=== PATIENT | male | born 1930 ===

== ENCOUNTER 2018-06-24 13:49 | Inpatient (IN) | payer MEDICARE ==
[2018-06-24] MEDS ORDERED: Labetalol 5mg/ml (4ml) ONE (14:03)
[2018-06-24 14:04] VITALS: BMI 27.8
[2018-06-24 14:34] LABS: EOS # 0.1 K/uL (0.0-0.7); LYMPH # 0.9 K/uL (1.0-4.3); MEAN PLATELET VOLUME 9.5 fL (7.2-11.7); NRBC % 0.1 % (0.0-2.0)
[2018-06-24 14:42] LABS: INR 1.1; PROTHROMBIN TIME 11.5 SECONDS (9.7-12.2)
[2018-06-24 14:43] LABS: BASO % 0.3 % (0.0-2.0); HEMOGLOBIN 12.5 g/dL (12.0-18.0); LYMPH % 17.7 % (20.0-40.0); MEAN CELL VOLUME 104.9 fL (80.0-94.0); MEAN CORPUSCULAR HEMOGLOBIN 34.2 pg (27.0-31.0); MEAN CORPUSCULAR HGB CONC 32.6 g/dL (33.0-37.0); MONO # 0.5 K/uL (0.0-0.8); MONO % 10.8 % (0.0-10.0); NEUT # 3.5 K/uL (1.8-7.0); NEUT % 69.2 % (50.0-75.0); RBC 3.65 Mil/uL (4.40-5.90)
[2018-06-24 14:44] LABS: ALB/GLOB RATIO 1.6 (1.0-2.1); ALBUMIN 4.1 g/dL (3.5-5.0); ALT/SGPT 12 U/L (21-72); AST/SGOT 24 U/L (17-59); BLOOD UREA NITROGEN 24 mg/dL (9-20); CALCIUM 8.7 mg/dl (8.6-10.4); GFR NON-AFRICAN AMERICAN > 60
--- NOTE | 2018-06-24 14:47 | RAD ---
Date of service: 06/24/2018 HISTORY: SOB COMPARISON: None available. TECHNIQUE: 1 view obtained. FINDINGS: LUNGS: Right apical fibrosis identified with none on the left. Left basilar fibrosis is questioned versus trace of pleural effusion. PLEURA: No significant pleural effusion identified, no pneumothorax apparent. CARDIOVASCULAR: Calcific atherosclerotic changes are seen related to the thoracic aorta. Normal cardiac size. No pulmonary vascular congestion. OSSEOUS STRUCTURES: Prior ORIF proximal right humerus. VISUALIZED UPPER ABDOMEN: Normal. OTHER FINDINGS: None. IMPRESSION: No acute infiltrate bilaterally although small pleural effusion is question. Fibrotic changes right apex. Cardiomegaly but no pulmonary vascular congestion.
[2018-06-24 14:56] LABS: B-TYPE NATRIURETIC PEPTIDE 1240 pg/mL (0-900)
--- NOTE | 2018-06-24 15:19 | C.PDOC ---
History Of Present Illness 88 y/o male presents to ED complaining of SOB today. Patient had recent outpatient CT chest done at an outside hospital with no findings. He denies any fever, chills, chest pain, cough, or other complaints. Time Seen by Provider: 06/24/18 14:03 Chief Complaint (Nursing): Shortness Of Breath History Per: Patient History/Exam Limitations: no limitations Onset/Duration Of Symptoms: Hrs Current Symptoms Are (Timing): Still Present Past Medical History Reviewed: Historical Data, Nursing Documentation, Vital Signs Vital Signs: Last Vital Signs Temp 97.9 F 06/24/18 13:51 Pulse 98 H 06/24/18 14:46 Resp 21 06/24/18 14:46 BP 124/56 L 06/24/18 14:46 Pulse Ox 100 06/24/18 14:46 - Medical History PMH: COPD, HTN, Hyperlipidemia Surgical History: Cholecystectomy Family History: States: No Known Family Hx - Social History Hx Alcohol Use: No Hx Substance Use: No - Immunization History Hx Influenza Vaccination: Yes (01/12/18) Hx Pneumococcal Vaccination: Yes (08/15/15) Review Of Systems Except As Marked, All Systems Reviewed And Found Negative. Constitutional: Negative for: Fever, Chills, Sweats Cardiovascular: Negative for: Chest Pain, Palpitations Respiratory: Positive for: Shortness of Breath. Negative for: Cough Gastrointestinal: Negative for: Nausea, Vomiting Physical Exam - Physical Exam Appears: Non-toxic, No Acute Distress Skin: Warm, Dry Head: Atraumatic, Normacephalic Eye(s): bilateral: Normal Inspection Oral Mucosa: Moist Neck: Supple Cardiovascular: Rhythm Regular, No Murmur Respiratory: No Rales, No Rhonchi, No Wheezing, Other (Moderate respiratory distress; mild coarse breath sounds) Gastrointestinal/Abdominal: Soft, No Tenderness Extremity: Bilateral: Atraumatic, Normal Color And Temperature, Normal ROM Neurological/Psych: Oriented x3, Normal Speech ED Course And Treatment - Laboratory Results Result Diagrams: 06/24/18 14:24 06/24/18 14:24 Lab Results: PT 11.5 SECONDS (9.7-12.2) 06/24/18 14:24 INR 1.1 06/24/18 14:24 APTT 41 SECONDS (21-34) H 06/24/18 14:24 Troponin I < 0.0120 ng/mL (0.00-0.120) 06/24/18 14:24 NT-Pro-B Natriuret Pep 1240 pg/mL (0-900) H 06/24/18 14:24 Total Bilirubin 0.4 mg/dL (0.2-1.3) 06/24/18 14:24 AST 24 U/L (17-59) 06/24/18 14:24 ALT 12 U/L (21-72) L 06/24/18 14:24 Alkaline Phosphatase 101 U/L (38-126) 06/24/18 14:24 Total Protein 6.7 g/dL (6.3-8.3) 06/24/18 14:24 Albumin 4.1 g/dL (3.5-5.0) 06/24/18 14:24 Globulin 2.6 gm/dL (2.2-3.9) 06/24/18 14:24 Albumin/Globulin Ratio 1.6 (1.0-2.1) 06/24/18 14:24 Lab Interpretation: Normal (bnp 1240, trop neg.) ECG: Interpreted By Me, Viewed By Me ECG Rhythm: Sinus Rhythm ECG Interpretation: Normal Interpretation Of ECG: normal Rate From EC O2 Sat by Pulse Oximetry: 100 (RA) Pulse Ox Interpretation: Normal - Radiology CXR: Interpreted by Me CXR Interpretation: Yes: Other (+ chronic lung dz/fibrosis) - Other Rad CXR X-Ray: Read By Radiologist Interpretation: FINDINGS: LUNGS: Right apical fibrosis identified with none on the left. Left basilar fibrosis is questioned versus trace of pleural effusion. PLEURA: No significant pleural effusion identified, no pneumothorax apparent. CARDIOVASCULAR: Calcific atherosclerotic changes are seen related to the thoracic aorta. Normal cardiac size. No pulmonary vascular congestion. OSSEOUS STRUCTURES: Prior ORIF proximal right humerus. VISUALIZED UPPER ABDOMEN: Normal. OTHER FINDINGS: None. IMPRESSION: No acute infiltrate bilaterally al though small pleural effusion is question. Fibrotic changes right apex. Cardiomegaly but no pulmonary vascular congestion. Reevaluation Time: 15:43 Reassessment Condition: Improved - Physician Consult Information Outcome Of Conversation: 1530: d/w Dr. Ferrer, Medicine Roofing Tile Sorter, ok to tele obs. Medical Decision Making Medical Decision Making: Plan: --EKG --Labs --Chest XR --Vapotherm Started on oxygen, brought O2 to low 90s. Then put on face mask to 100. Tried vapotherm O2 set, dropped to 90. Patient is back on facemask. lung dz/fibrosis poorly controlled HTN- increasing O2 demand failed Vapotherm, return to no PNA/pnx Disposition Doctor Will See Patient In The: Hospital Counseled Patient/Family Regarding: Studies Performed, Diagnosis - Disposition Disposition: HOSPITALIZED Disposition Time: 15:44 Condition: GOOD Forms: [employer] (Bulgarian) - Clinical Impression Clinical Impression: COPD (chronic obstructive pulmonary disease), Dyspnea, Hypertension - Scribe Statement The provider has reviewed the documentation as recorded by the Nyla Bellamy Provider Attestation: All medical record entries made by the Nyla were at my direction and personally dictated by me. I have reviewed the chart and agree that the record accurately reflects my personal performance of the history, physical exam, medical decision making, and the department course for this patient. I have also personally directed, reviewed, and agree with the discharge instructions and disposition.
[2018-06-24] MEDS ORDERED: Albuterol-Ipratrop 3 mg / 0.5 (3 ml) UD INH STA (15:36)
[2018-06-24] MEDS ORDERED: Albuterol-Ipratrop 3 mg / 0.5 (3 ml) UD ONE (15:50)
[2018-06-24] MEDS: Albuterol-Ipratrop 3 mg / 0.5 (3 ml) UD INH SCH (20:24)
[2018-06-24] MEDS: Budesonide 0.5 mg/2 ml Inhal Susp UD IH SCH (20:25)
[2018-06-24] MEDS: Labetalol Hydrochloride 300 mg Tab PO SCH (20:35)
[2018-06-24] MEDS: Cilostazol 50 mg Tab UD PO SCH (20:35)
[2018-06-24] MEDS: (Novolog) Insulin Aspart, Recombinant 100 u/ml 10 ml vial SC SCH (21:55)
[2018-06-24] MEDS: clonazePAM 0.25 MG TAB PO SCH (22:28)
[2018-06-24] MEDS: MethylPREDNISolone 40 mg Vial IVP SCH (22:28)
[2018-06-25] MEDS: Albuterol-Ipratrop 3 mg / 0.5 (3 ml) UD INH SCH ×6 (01:02→19:52)
--- NOTE | 2018-06-25 07:00 | CP.PCM.PN ---
Subjective - Date & Time of Evaluation Date of Evaluation: 06/25/18 Time of Evaluation: 07:00 - Subjective Subjective: Medical Progress Note - Dr Baker's service Patient seen and examined at bedside. Patient was admitted for shortness of breath. States that he uses O2 at home constantly but was experiencing shortness of breath despite being on 3L of O2. Patient states that he has a history of COPD and lung cancer s/p radiation. His last PET scan was 2-3 months ago and it was normal. Currently he reports that his breathing has improved with the bipap. Discussed code status with the patient and his son, Jack Maldonado. Dr Elder and I were at the bedside. Patient is requesting to be DNR only. Code status has been updated. Patient to be transferred to the ICU. Objective - Vital Signs/Intake and Output Vital Signs (last 24 hours): Temp Pulse Resp BP Pulse Ox 98.1 F 97 H 20 145/78 94 L 06/25/18 05:19 06/25/18 05:19 06/25/18 05:19 06/25/18 05:19 06/25/18 05:19 - Medications Medications: Current Medications Albuterol/Ipratropium (Duoneb 3 Mg/0.5 Mg (3 Ml) Ud) 3 ml INH RQ4 [facility] Last Admin: 06/25/18 03:51 Dose: 3 ml Allopurinol (Zyloprim) 100 mg PO DAILY [facility] Aspirin (Aspirin Chewable) 81 mg PO DAILY [facility] Budesonide (Pulmicort Respules) 0.5 mg IH RQ12 [facility] Last Admin: 06/24/18 20:25 Dose: Not Given Carbamazepine (Tegretol-Xr) 200 mg PO DAILY [facility] Cilostazol (Pletal) 50 mg PO BID [facility] Last Admin: 06/24/18 20:35 Dose: 50 mg Clonazepam (Klonopin- Half Tab) 0.25 mg PO HS [facility] Last Admin: 06/24/18 22:28 Dose: 0.25 mg Ferrous Sulfate (Feosol) 325 mg PO DAILY [facility] Finasteride (Proscar) 5 mg PO DAILY [facility] Folic Acid (Folic Acid) 1 mg PO DAILY [facility] Furosemide (Lasix) 20 mg PO DAILY [facility] Gabapentin (Neurontin) 100 mg PO BID [facility] Last Admin: 06/24/18 20:34 Dose: 100 mg Hydralazine HCl (Apresoline) 50 mg PO DAILY [facility] Insulin Aspart (Novolog) 0 unit SC ACHS [facility]; Protocol Last Admin: 06/24/18 21:55 Dose: Not Given Isosorbide Mononitrate (Imdur) 120 mg PO DAILY [facility] Labetalol HCl (Normodyne) 300 mg PO BID [facility] Last Admin: 06/24/18 20:35 Dose: 300 mg Magnesium Oxide (Mag-Ox) 400 mg PO BID [facility] Metformin HCl (Glucophage) 500 mg PO BID [facility] Last Admin: 06/24/18 22:28 Dose: 500 mg Methylprednisolone (Solu-Medrol) 40 mg IVP Q12 [facility] Last Admin: 06/24/18 22:28 Dose: 40 mg Pantoprazole Sodium (Protonix Ec Tab) 40 mg PO DAILY [facility] Pramipexole Dihydrochloride (Mirapex) 1 mg PO [facility] Last Admin: 06/24/18 21:55 Dose: Not Given Primidone (Mysoline) 250 mg PO BID [facility] Last Admin: 06/24/18 20:37 Dose: Not Given Rosuvastatin Calcium (Crestor) 10 mg PO [facility] Last Admin: 06/24/18 22:28 Dose: 10 mg Tamsulosin HCl (Flomax) 0.8 mg PO DAILY [facility] - Labs Labs: 06/24/18 14:24 06/24/18 14:24 PT 11.5 SECONDS (9.7-12.2) 06/24/18 14:24 INR 1.1 06/24/18 14:24 APTT 41 SECONDS (21-34) H 06/24/18 14:24 - Constitutional Appears: Non-toxic, Chronically Ill - Head Exam Head Exam: ATRAUMATIC, NORMAL INSPECTION, NORMOCEPHALIC - Eye Exam Eye Exam: EOMI - ENT Exam ENT Exam: Mucous Membranes Moist - Respiratory Exam Respiratory Exam: Accessory Muscle Use, Decreased Breath Sounds. absent: Rales, Rhonchi - Cardiovascular Exam Cardiovascular Exam: REGULAR RHYTHM, +S1, +S2 - GI/Abdominal Exam GI & Abdominal Exam: Soft. absent: Guarding, Rigid, Tenderness - Extremities Exam Additional comments: Multiple areas of ecchymosis on his upper extremities - Neurological Exam Neurological Exam: Alert, Awake, Oriented x3 - Psychiatric Exam Psychiatric exam: Normal Affect, Normal Mood - Skin Skin Exam: Dry, Normal Color, Warm Assessment and Plan - Assessment and Plan (Free Text) Assessment: Dyspnea 2/2 COPD exacerbation vs fluid overload, History of Lung CA s/p radiation therapy -Initial ABG showing CO2 retention -Bipap setting changed to 04/08 -Repeat ABG showing slight improvement -Antibiotics: Zosyn 3.375 Q8H -Continue Solu-medrol 40mg Q12H -Continue Duonebs Q4H, Budesonide 0.5mg Q12H -STAT CXR ordered this afternoon and showed probable aspiration -Diet NPO -CT chest w/o contrast ordered, echo also ordered -Patient to be transferred to the ICU for higher level of care -ICU consult placed, Dr Elder, help appreciated -He follows with Dr George (laboratory technologist) outpatient Essential tremor -Mirapex 1mg PO HS Gout -Allopurinol 100mg PO daily DM -Metformin 500mg PO BID -ISS and accuchecks Q6H Hypertension -Labetalol 300mg PO BID -Hydralazine 50mg PO daily BPH -Flomax 0.4mg PO daily GI/DVT ppx: Protonix 40mg PO daily Heparin 5000 SC Q12H DISPO: Patient's son is at the bedside and it requesting transfer to [facility], Patient too unstable for transfer at this time. As patient is now DNR we will transfer him to the ICU.
[2018-06-25] MEDS: Budesonide 0.5 mg/2 ml Inhal Susp UD IH SCH ×2 (07:30→19:52)
[2018-06-25] MEDS: (Novolog) Insulin Aspart, Recombinant 100 u/ml 10 ml vial SC SCH ×4 (08:17→21:44)
[2018-06-25 08:42] LABS: BASO % 0.3 % (0.0-2.0); EOS % 0.6 % (0.0-4.0); HEMOGLOBIN 12.7 g/dL (12.0-18.0); LYMPH # 0.8 K/uL (1.0-4.3); MEAN CORPUSCULAR HEMOGLOBIN 34.6 pg (27.0-31.0); MEAN PLATELET VOLUME 9.3 fL (7.2-11.7); MONO # 0.6 K/uL (0.0-0.8); NEUT # 3.6 K/uL (1.8-7.0); NEUT % 71.1 % (50.0-75.0); NRBC % 0.1 % (0.0-2.0); RBC 3.68 Mil/uL (4.40-5.90); RED CELL DISTRIBUTION WIDTH 14.9 % (11.5-14.5); WHITE BLOOD COUNT 5.1 K/uL (4.8-10.8)
[2018-06-25 09:24] LABS: ALB/GLOB RATIO 1.5 (1.0-2.1); ALBUMIN 3.8 g/dL (3.5-5.0); ALT/SGPT 20 U/L (21-72); AST/SGOT 23 U/L (17-59); BLOOD UREA NITROGEN 21 mg/dL (9-20); CALCIUM 8.9 mg/dl (8.6-10.4); GFR NON-AFRICAN AMERICAN > 60
[2018-06-25 09:53] LABS: ABG ALLEN TEST POS; ARTERIAL BLOOD GAS HCO3 29.3 mmol/L (21-28); ARTERIAL BLOOD GAS O2 SAT 93.8 % (95-98); ARTERIAL BLOOD GAS PCO2 71 mm/Hg (35-45); ARTERIAL BLOOD GAS PO2 55 mm/Hg (80-100); ARTERIAL BLOOD GAS TCO2 37.1 mmol/L (22-28)
[2018-06-25 10:27] LABS: FOLATE > 20.0 ng/mL
[2018-06-25] MEDS: MethylPREDNISolone 40 mg Vial IVP SCH ×2 (10:31→21:43)
[2018-06-25] MEDS: Labetalol Hydrochloride 300 mg Tab PO SCH ×2 (10:32→19:05)
[2018-06-25] MEDS: Pantoprazole 40 mg EC Tab PO SCH (10:32)
[2018-06-25] MEDS: Magnesium Oxide 400 mg Tab UD PO SCH ×2 (10:32→19:03)
[2018-06-25] MEDS: Cilostazol 50 mg Tab UD PO SCH ×2 (10:32→19:03)
[2018-06-25 11:54] LABS: ABG ALLEN TEST POS; ARTERIAL BLOOD GAS HCO3 33.4 mmol/L (21-28); ARTERIAL BLOOD GAS O2 SAT 94.2 % (95-98); ARTERIAL BLOOD GAS PCO2 69 mm/Hg (35-45); ARTERIAL BLOOD GAS PH 7.36 (7.35-7.45); ARTERIAL BLOOD GAS PO2 55 mm/Hg (80-100); ARTERIAL BLOOD GAS TCO2 41.1 mmol/L (22-28)
--- NOTE | 2018-06-25 14:58 | CP.PCM.CON ---
History of Present Illness - History of Present Illness History of Present Illness: Palliative consult requested by Doctor Kearns for goals of care/POLST creation as per patient's request Patient is a 88 yo male admitted from home with SOB as of today. Patient denied fever. CXR in ED was significant for fibrotic changes. Patient placed on BiPap with FiO2 of 40% saturating 93 %. Patient found with abnormal ABG gasses and CO2 retention. Patient requested to sign DNR/DNI. Patient given Solu Medrol, Duoneb and Pulmicort via Neb and HCTZ. Patient requested transfer to [facility] where his PMD Kend[facility] was. Transfer is to fallow this evening. PMH: COPD, HTN, HDL Soc. Hx: lives at home, son involved in care, single Fam. Hx: unknown Review of Systems - Review of Systems Systems not reviewed;Unavailable: Respiratory Distress Review of Systems: ROS unobtainable from patient due to SOB, BIpap. ROS obtained from nursing. per nursing, patient is afebrile, tolerates BiPap well and is being prepared for transfer to [facility]. Past Patient History - Past Social History Smoking Status: Former Smoker - CARDIAC Hx Hypertension: Yes - PULMONARY Hx Chronic Obstructive Pulmonary Disease (COPD): Yes - NEUROLOGICAL Other/Comment: "Essential Tremor - Involuntary Movement" - ENDOCRINE/METABOLIC Hx Diabetes Mellitus Type 2: Yes - MUSCULOSKELETAL/RHEUMATOLOGICAL Hx Gout: Yes - GENITOURINARY/GYNECOLOGICAL Hx Prostate Problems: Yes (BPH) - PSYCHIATRIC Hx Substance Use: No - SURGICAL HISTORY Hx Cholecystectomy: Yes Meds Allergies/Adverse Reactions: Allergies Allergy/AdvReac Type Severity Reaction Status Date / Time No Known Allergies Allergy Verified 06/24/18 14:19 - Medications Medications: Current Medications Albuterol/Ipratropium (Duoneb 3 Mg/0.5 Mg (3 Ml) Ud) 3 ml INH RQ4 [facility] Last Admin: 06/25/18 13:23 Dose: 3 ml Allopurinol (Zyloprim) 100 mg PO DAILY [facility] Last Admin: 06/25/18 10:32 Dose: 100 mg Aspirin (Aspirin Chewable) 81 mg PO DAILY [facility] Last Admin: 06/25/18 10:32 Dose: 81 mg Budesonide (Pulmicort Respules) 0.5 mg IH RQ12 [facility] Last Admin: 06/25/18 07:30 Dose: 0.5 mg Carbamazepine (Tegretol-Xr) 200 mg PO DAILY [facility] Last Admin: 06/25/18 10:32 Dose: 200 mg Cilostazol (Pletal) 50 mg PO BID [facility] Last Admin: 06/25/18 10:32 Dose: 50 mg Clonazepam (Klonopin- Half Tab) 0.25 mg PO HS [facility] Last Admin: 06/24/18 22:28 Dose: 0.25 mg Ferrous Sulfate (Feosol) 325 mg PO DAILY [facility] Last Admin: 06/25/18 13:46 Dose: 325 mg Finasteride (Proscar) 5 mg PO DAILY [facility] Last Admin: 06/25/18 10:32 Dose: 5 mg Folic Acid (Folic Acid) 1 mg PO DAILY [facility] Last Admin: 06/25/18 10:31 Dose: 1 mg Gabapentin (Neurontin) 100 mg PO BID [facility] Last Admin: 06/25/18 10:32 Dose: 100 mg Heparin Sodium (Porcine) (Heparin) 5,000 units SC Q12 [facility] Last Admin: 06/25/18 10:31 Dose: 5,000 units Hydralazine HCl (Apresoline) 50 mg PO DAILY [facility] Last Admin: 06/25/18 10:32 Dose: 50 mg Insulin Aspart (Novolog) 0 unit SC [facility]; Protocol Last Admin: 06/25/18 12:13 Dose: 1 u Isosorbide Mononitrate (Imdur) 120 mg PO DAILY [facility] Last Admin: 06/25/18 10:32 Dose: 120 mg Labetalol HCl (Normodyne) 300 mg PO BID [facility] Last Admin: 06/25/18 10:32 Dose: 300 mg Magnesium Oxide (Mag-Ox) 400 mg PO BID [facility] Last Admin: 06/25/18 10:32 Dose: 400 mg Metformin HCl (Glucophage) 500 mg PO BID [facility] Last Admin: 06/25/18 10:32 Dose: 500 mg Methylprednisolone (Solu-Medrol) 40 mg IVP Q12 [facility] Last Admin: 06/25/18 10:31 Dose: 40 mg Pantoprazole Sodium (Protonix Ec Tab) 40 mg PO DAILY [facility] Last Admin: 06/25/18 10:32 Dose: 40 mg Pramipexole Dihydrochloride (Mirapex) 1 mg PO HS [facility] Last Admin: 06/24/18 21:55 Dose: Not Given Primidone (Mysoline) 250 mg PO BID [facility] Last Admin: 06/25/18 10:32 Dose: 250 mg Rosuvastatin Calcium (Crestor) 10 mg PO HS [facility] Last Admin: 06/24/18 22:28 Dose: 10 mg Tamsulosin HCl (Flomax) 0.8 mg PO DAILY [facility] Last Admin: 06/25/18 10:31 Dose: 0.8 mg Physical Exam - Constitutional Appears: In Acute Distress - Head Exam Head Exam: ATRAUMATIC, NORMAL INSPECTION, NORMOCEPHALIC - Eye Exam Eye Exam: EOMI, Normal appearance, PERRL Pupil Exam: NORMAL ACCOMODATION, PERRL - ENT Exam ENT Exam: Mucous Membranes Dry - Neck Exam Neck exam: Positive for: Normal Inspection - Respiratory Exam Respiratory Exam: Accessory Muscle Use, Decreased Breath Sounds, Respiratory Distress - Cardiovascular Exam Cardiovascular Exam: Tachycardia, Irregular Rhythm - GI/Abdominal Exam GI & Abdominal Exam: Distended, Soft - Rectal Exam Rectal Exam: Deferred - Exam Exam: NORMAL INSPECTION - Extremities Exam Extremities exam: Positive for: pedal edema - Back Exam Back exam: NORMAL INSPECTION - Neurological Exam Neurological exam: Alert, Oriented x3 - Psychiatric Exam Psychiatric exam: Normal Affect, Normal Mood - Skin Skin Exam: Abrasion, Pallor, Petechiae Results - Vital Signs Recent Vital Signs: Last Vital Signs Temp 98.0 F 06/25/18 08:13 Pulse 99 H 06/25/18 14:00 Resp 36 H 06/25/18 10:34 BP 158/67 H 06/25/18 10:22 Pulse Ox 93 L 06/25/18 12:00 - Labs Result Diagrams: 06/25/18 08:23 06/25/18 08:23 Labs: Laboratory Results - last 24 hr 06/24/18 06/24/18 06/24/18 14:24 14:24 21:51 WBC 5.0 RBC 3.65 L Hgb 12.5 Hct 38.3 MCV 104.9 H MCH 34.2 H MCHC 32.6 L RDW 15.0 H Plt Count 109 L MPV 9.5 Neut % (Auto) 69.2 Lymph % (Auto) 17.7 L Kenton % (Auto) 10.8 H Eos % (Auto) 2.0 Baso % (Auto) 0.3 Neut # (Auto) 3.5 Lymph # (Auto) 0.9 L Kenton # (Auto) 0.5 Eos # (Auto) 0.1 Baso # (Auto) 0.0 Differential Comment Puncture Site pCO2 pO2 HCO3 ABG pH ABG Total CO2 ABG O2 Saturation ABG Base Excess ABG Hemoglobin ABG Carboxyhemoglobin POC ABG HHb (Measured) ABG Methemoglobin Ramon Test ABG Potassium A-a O2 Difference Respiratory Index Hgb O2 Saturation Glucose Lactate Vent Mode FiO2 Inspiratory BiPAP Expiratory BiPAP Crit Value Called To Crit Value Called By Crit Value Read Back Blood Gas Notified Time Sodium Potassium Chloride Carbon Dioxide Anion Gap BUN Creatinine Est GFR ( Amer) Est GFR (Non-Af Amer) POC Glucose (mg/dL) 298 H Random Glucose Hemoglobin A1c Calcium Phosphorus Magnesium Total Bilirubin AST ALT Alkaline Phosphatase Troponin I < 0.0120 NT-Pro-B Natriuret Pep 1240 H Total Protein Albumin Globulin Albumin/Globulin Ratio Vitamin B12 Folate Arterial Blood Potassium 06/25/18 06/25/18 06/25/18 06:53 08:23 08:23 WBC 5.1 RBC 3.68 L Hgb 12.7 Hct 38.7 MCV 105.0 H MCH 34.6 H MCHC 33.0 RDW 14.9 H Plt Count 108 L MPV 9.3 Neut % (Auto) 71.1 Lymph % (Auto) 16.0 L Kenton % (Auto) 12.0 H Eos % (Auto) 0.6 Baso % (Auto) 0.3 Neut # (Auto) 3.6 Lymph # (Auto) 0.8 L Kenton # (Auto) 0.6 Eos # (Auto) 0.0 Baso # (Auto) 0.0 Differential Comment Puncture Site pCO2 pO2 HCO3 ABG pH ABG Total CO2 ABG O2 Saturation ABG Base Excess ABG Hemoglobin ABG Carboxyhemoglobin POC ABG HHb (Measured) ABG Methemoglobin Ramon Test ABG Potassium A-a O2 Difference Respiratory Index Hgb O2 Saturation Glucose Lactate Vent Mode FiO2 Inspiratory BiPAP Expiratory BiPAP Crit Value Called To Crit Value Called By Crit Value Read Back Blood Gas Notified Time Sodium 140 Potassium 5.3 H Chloride 101 Carbon Dioxide 38 H Anion Gap 6 L BUN 21 H Creatinine 1.1 Est GFR ( Amer) > 60 Est GFR (Non-Af Amer) > 60 POC Glucose (mg/dL) 127 H Random Glucose 123 H D Hemoglobin A1c Calcium 8.9 Phosphorus 4.0 Magnesium 2.1 Total Bilirubin 0.3 AST 23 ALT 20 L D Alkaline Phosphatase 103 Troponin I NT-Pro-B Natriuret Pep Total Protein 6.4 Albumin 3.8 Globulin 2.6 Albumin/Globulin Ratio 1.5 Vitamin B12 485 Folate > 20.0 Arterial Blood Potassium 06/25/18 06/25/18 06/25/18 08:23 09:47 11:50 WBC RBC Hgb Hct MCV MCH MCHC RDW Plt Count MPV Neut % (Auto) Lymph % (Auto) Kenton % (Auto) Eos % (Auto) Baso % (Auto) Neut # (Auto) Lymph # (Auto) Kenton # (Auto) Eos # (Auto) Baso # (Auto) Differential Comment Puncture Site Rra Rra pCO2 71 H* 69 H pO2 55 L 55 L HCO3 29.3 H 33.4 H ABG pH 7.30 L 7.36 ABG Total CO2 37.1 H 41.1 H ABG O2 Saturation 93.8 L 94.2 L ABG Base Excess 6.0 H 11.0 H ABG Hemoglobin 12.0 ABG Carboxyhemoglobin 1.9 H POC ABG HHb (Measured) 5.6 H ABG Methemoglobin 1.0 Ramon Test Pos Pos ABG Potassium 4.2 A-a O2 Difference 141.0 144.0 Respiratory Index 2.6 2.6 Hgb O2 Saturation 91.4 L Glucose 202 H Lactate 1.7 Vent Mode Bipap Bipap FiO2 40.0 40.0 Inspiratory BiPAP 10 14 Expiratory BiPAP 5 5 Crit Value Called To Dr rawls Crit Value Called By Eliot mota [employer] attendant Crit Value Read Back Y Blood Gas Notified Time 952 Sodium 141.0 Potassium Chloride 106.0 Carbon Dioxide Anion Gap BUN Creatinine Est GFR ( Amer) Est GFR (Non-Af Amer) POC Glucose (mg/dL) Random Glucose Hemoglobin A1c 6.6 H Calcium Phosphorus Magnesium Total Bilirubin AST ALT Alkaline Phosphatase Troponin I NT-Pro-B Natriuret Pep Total Protein Albumin Globulin Albumin/Globulin Ratio Vitamin B12 Folate Arterial Blood Potassium 4.2 06/25/18 11:58 WBC RBC Hgb Hct MCV MCH MCHC RDW Plt Count MPV Neut % (Auto) Lymph % (Auto) Kenton % (Auto) Eos % (Auto) Baso % (Auto) Neut # (Auto) Lymph # (Auto) Kenton # (Auto) Eos # (Auto) Baso # (Auto) Differential Comment Puncture Site pCO2 pO2 HCO3 ABG pH ABG Total CO2 ABG O2 Saturation ABG Base Excess ABG Hemoglobin ABG Carboxyhemoglobin POC ABG HHb (Measured) ABG Methemoglobin Ramon Test ABG Potassium A-a O2 Difference Respiratory Index Hgb O2 Saturation Glucose Lactate Vent Mode FiO2 Inspiratory BiPAP Expiratory BiPAP Crit Value Called To Crit Value Called By Crit Value Read Back Blood Gas Notified Time Sodium Potassium Chloride Carbon Dioxide Anion Gap BUN Creatinine Est GFR ( Amer) Est GFR (Non-Af Amer) POC Glucose (mg/dL) 162 H Random Glucose Hemoglobin A1c Calcium Phosphorus Magnesium Total Bilirubin AST ALT Alkaline Phosphatase Troponin I NT-Pro-B Natriuret Pep Total Protein Albumin Globulin Albumin/Globulin Ratio Vitamin B12 Folate Arterial Blood Potassium Assessment & Plan - Assessment and Plan (Free Text) Assessment: Palliative consult There was no Advance Directive on chart, PPS 10% I reviewed all Medical records, diagnostic studies, examined and interviewed patient in the bed. Patient is alert, oriented X 3, in acute respiratory distress with BiPap on. patient makes eye contacts and communicates by closing his eyes for yes and nodding his head for no. Skin diaphoretic, cool to touch with a lot of petechia to both upper arms. patient is on blood thiner at home. Breath sounds are shallow, fast with accessory muscles use. O2Sat 93 % on Bi Pap, FiO2 40 %. HR 96, irregular rhythm, denies chest pain. Abdomen large, soft, active bowel sounds. Patient needs max assistance with repositioning in bed. he is able to lift up his both legs and arms. There is a tremor to both hands, needs assistance with feedings and care. BP 158/67, HR 96, afebrile, o2sat 93% Meds: Duoneb, Pulmicort, Solumedrol, HCTZ Code status discussed with patient. DNR/DNI explained. Patient signaled with his eyes he understood and asked to " sign the paper'. POLST signed by patient asking for DNR/DNI. This was shared with Nursing and case planner. patient was getting ready for transfer to [facility]. Impression * Severe acute respiratory distress with use of accessory muscles * Tremor to upper extremities * Needs assistance with feedings and repositioning in bed due to tremors and general weakness * Patient is requesting DNR/DNI status, POLST signed by patient Suggestion * Continue BiPap * Assist with feedings * Arrange for transfer * Agree with DNR/DNI Advance care planing 30 min. Palliative care will sign off now. Thank you for consulting PC.
[2018-06-25 16:58] LABS: ARTERIAL BLOOD GAS HCO3 33.8 mmol/L (21-28); ARTERIAL BLOOD GAS HEMOGLOBIN 11.8 g/dL (11.7-17.4); ARTERIAL BLOOD GAS PCO2 70 mm/Hg (35-45); ARTERIAL BLOOD GAS PH 7.36 (7.35-7.45); ARTERIAL BLOOD GAS PO2 65 mm/Hg (80-100); ARTERIAL BLOOD GAS TCO2 41.6 mmol/L (22-28)
--- NOTE | 2018-06-25 17:05 | RAD ---
HISTORY: sob COMPARISON: Chest x-ray performed 06/24/18 TECHNIQUE: Chest, one view. FINDINGS: External wires and leads obscure evaluation of the underlying parenchyma. Examination limited by habitus and patient obliquity. The patient's chin obscures evaluation of the right lung apex. LUNGS: Right hilar prominence. Biapical pleural thickening. Pleural based opacity at the right lung apex with adjacent atelectasis or infiltrate. Left lower lobe atelectasis/infiltrate and small left pleural effusion. No definite pneumothorax. CARDIOVASCULAR: Cardiomegaly. Atherosclerotic calcifications of the aorta. OSSEOUS STRUCTURES: Osseous demineralization. Scoliosis. Multilevel degenerative changes. VISUALIZED UPPER ABDOMEN: Unremarkable. OTHER FINDINGS: None. IMPRESSION: Right hilar prominence. Biapical pleural thickening. Pleural based opacity at the right lung apex with adjacent atelectasis or infiltrate. Left lower lobe atelectasis/infiltrate and small left pleural effusion. Cardiomegaly.
--- NOTE | 2018-06-25 18:51 | CP.PCM.CON ---
History of Present Illness - History of Present Illness History of Present Illness: 88 y/o male with pmx of COPD/CAD, CKD being treated by private service. Patient has code status of DNR/DNI; however patient's son advsied that it is OK top intubated to help patient ventilate ("Blow off carbon dioxide"). (+)dyspena ROS: limited SH: denies PMX:CAD/COPD allergies: NKDA Review of Systems - Review of Systems Systems not reviewed;Unavailable: Unstable Vital Signs, Respiratory Distress Past Patient History - Tetanus Immunizations Tetanus Immunization: Unknown - Past Social History Smoking Status: Former Smoker - CARDIAC Hx Hypertension: Yes - PULMONARY Hx Chronic Obstructive Pulmonary Disease (COPD): Yes - NEUROLOGICAL Other/Comment: "Essential Tremor - Involuntary Movement" - ENDOCRINE/METABOLIC Hx Diabetes Mellitus Type 2: Yes - MUSCULOSKELETAL/RHEUMATOLOGICAL Hx Falls: Yes - GENITOURINARY/GYNECOLOGICAL Hx Prostate Problems: Yes (BPH) - PSYCHIATRIC Hx Substance Use: No - SURGICAL HISTORY Hx Cholecystectomy: Yes Meds Allergies/Adverse Reactions: Allergies Allergy/AdvReac Type Severity Reaction Status Date / Time No Known Allergies Allergy Verified 06/24/18 14:19 - Medications Medications: Current Medications Albuterol/Ipratropium (Duoneb 3 Mg/0.5 Mg (3 Ml) Ud) 3 ml INH RQ4 [facility] Last Admin: 06/25/18 16:31 Dose: 3 ml Allopurinol (Zyloprim) 100 mg PO DAILY [facility] Last Admin: 06/25/18 10:32 Dose: 100 mg Aspirin (Aspirin Chewable) 81 mg PO DAILY [facility] Last Admin: 06/25/18 10:32 Dose: 81 mg Budesonide (Pulmicort Respules) 0.5 mg IH RQ12 [facility] Last Admin: 06/25/18 07:30 Dose: 0.5 mg Carbamazepine (Tegretol-Xr) 200 mg PO DAILY [facility] Last Admin: 06/25/18 10:32 Dose: 200 mg Cilostazol (Pletal) 50 mg PO BID [facility] Last Admin: 06/25/18 10:32 Dose: 50 mg Clonazepam (Klonopin- Half Tab) 0.25 mg PO HS [facility] Last Admin: 06/24/18 22:28 Dose: 0.25 mg Finasteride (Proscar) 5 mg PO DAILY [facility] Last Admin: 06/25/18 10:32 Dose: 5 mg Folic Acid (Folic Acid) 1 mg PO DAILY [facility] Last Admin: 06/25/18 10:31 Dose: 1 mg Furosemide (Lasix) 40 mg IVP Q12 [facility] Gabapentin (Neurontin) 100 mg PO BID [facility] Last Admin: 06/25/18 10:32 Dose: 100 mg Heparin Sodium (Porcine) (Heparin) 5,000 units SC Q12 [facility] Last Admin: 06/25/18 10:31 Dose: 5,000 units Hydralazine HCl (Apresoline) 50 mg PO DAILY [facility] Last Admin: 06/25/18 10:32 Dose: 50 mg Piperacillin Sod/Tazobactam (Sod 3.375 gm/ Sodium Chloride) 100 mls @ 200 mls/hr IVPB Q8H [facility]; Protocol Insulin Aspart (Novolog) 0 unit SC ACHS [facility]; Protocol Last Admin: 06/25/18 12:13 Dose: 1 u Isosorbide Mononitrate (Imdur) 120 mg PO DAILY [facility] Last Admin: 06/25/18 10:32 Dose: 120 mg Labetalol HCl (Normodyne) 300 mg PO BID [facility] Last Admin: 06/25/18 10:32 Dose: 300 mg Magnesium Oxide (Mag-Ox) 400 mg PO BID [facility] Last Admin: 06/25/18 10:32 Dose: 400 mg Metformin HCl (Glucophage) 500 mg PO BID [facility] Last Admin: 06/25/18 10:32 Dose: 500 mg Methylprednisolone (Solu-Medrol) 40 mg IVP Q12 [facility] Last Admin: 06/25/18 10:31 Dose: 40 mg Pantoprazole Sodium (Protonix Ec Tab) 40 mg PO DAILY [facility] Last Admin: 06/25/18 10:32 Dose: 40 mg Pramipexole Dihydrochloride (Mirapex) 1 mg PO HS [facility] Last Admin: 06/24/18 21:55 Dose: Not Given Primidone (Mysoline) 250 mg PO BID [facility] Last Admin: 06/25/18 10:32 Dose: 250 mg Rosuvastatin Calcium (Crestor) 10 mg PO HS [facility] Last Admin: 06/24/18 22:28 Dose: 10 mg Tamsulosin HCl (Flomax) 0.8 mg PO DAILY [facility] Last Admin: 06/25/18 10:31 Dose: 0.8 mg Physical Exam - Head Exam Head Exam: ATRAUMATIC, NORMAL INSPECTION - Eye Exam Eye Exam: EOMI - Respiratory Exam Respiratory Exam: Rales, Rhonchi, NORMAL BREATHING PATTERN. absent: Wheezes, Stridor - Cardiovascular Exam Cardiovascular Exam: Irregular Rhythm, +S1, +S2 - GI/Abdominal Exam GI & Abdominal Exam: Normal Bowel Sounds, Soft - Neurological Exam Neurological exam: Alert, Oriented x3 - Skin Skin Exam: Normal Color, Warm Additional comments: ecchymosis UE Results - Vital Signs Recent Vital Signs: Last Vital Signs Temp 97.7 F 06/25/18 15:46 Pulse 99 H 06/25/18 15:46 Resp 22 06/25/18 15:46 BP 135/63 06/25/18 15:46 Pulse Ox 94 L 06/25/18 15:46 - Labs Result Diagrams: 06/26/18 05:52 06/26/18 05:52 Labs: Laboratory Results - last 24 hr 06/24/18 06/25/18 06/25/18 21:51 06:53 08:23 WBC 5.1 RBC 3.68 L Hgb 12.7 Hct 38.7 MCV 105.0 H MCH 34.6 H MCHC 33.0 RDW 14.9 H Plt Count 108 L MPV 9.3 Neut % (Auto) 71.1 Lymph % (Auto) 16.0 L [place] % (Auto) 12.0 H Eos % (Auto) 0.6 Baso % (Auto) 0.3 Neut # (Auto) 3.6 Lymph # (Auto) 0.8 L [place] # (Auto) 0.6 Eos # (Auto) 0.0 Baso # (Auto) 0.0 Puncture Site pCO2 pO2 HCO3 ABG pH ABG Total CO2 ABG O2 Saturation ABG Base Excess ABG Hemoglobin ABG Carboxyhemoglobin POC ABG HHb (Measured) ABG Methemoglobin Ramon Test ABG Potassium A-a O2 Difference Respiratory Index Hgb O2 Saturation Glucose Lactate Vent Mode FiO2 Inspiratory BiPAP Expiratory BiPAP Crit Value Called To Crit Value Called By Crit Value Read Back Blood Gas Notified Time Sodium Potassium Chloride Carbon Dioxide Anion Gap BUN Creatinine Est GFR ( Amer) Est GFR (Non-Af Amer) POC Glucose (mg/dL) 298 H 127 H Random Glucose Hemoglobin A1c Calcium Phosphorus Magnesium Total Bilirubin AST ALT Alkaline Phosphatase Total Protein Albumin Globulin Albumin/Globulin Ratio Vitamin B12 Folate Arterial Blood Potassium 06/25/18 06/25/18 06/25/18 08:23 08:23 09:47 WBC RBC Hgb Hct MCV MCH MCHC RDW Plt Count MPV Neut % (Auto) Lymph % (Auto) [place] % (Auto) Eos % (Auto) Baso % (Auto) Neut # (Auto) Lymph # (Auto) [place] # (Auto) Eos # (Auto) Baso # (Auto) Puncture Site Rra pCO2 71 H* pO2 55 L HCO3 29.3 H ABG pH 7.30 L ABG Total CO2 37.1 H ABG O2 Saturation 93.8 L ABG Base Excess 6.0 H ABG Hemoglobin ABG Carboxyhemoglobin POC ABG HHb (Measured) ABG Methemoglobin Ramon Test Pos ABG Potassium 4.2 A-a O2 Difference 141.0 Respiratory Index 2.6 Hgb O2 Saturation Glucose 202 H Lactate 1.7 Vent Mode Bipap FiO2 40.0 Inspiratory BiPAP 10 Expiratory BiPAP 5 Crit Value Called To Dr rawls Crit 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 Crit Value Read Back Y Blood Gas Notified Time 952 Sodium 140 141.0 Potassium 5.3 H Chloride 101 106.0 Carbon Dioxide 38 H Anion Gap 6 L BUN 21 H Creatinine 1.1 Est GFR ( Amer) > 60 Est GFR (Non-Af Amer) > 60 POC Glucose (mg/dL) Random Glucose 123 H D Hemoglobin A1c 6.6 H Calcium 8.9 Phosphorus 4.0 Magnesium 2.1 Total Bilirubin 0.3 AST 23 ALT 20 L D Alkaline Phosphatase 103 Total Protein 6.4 Albumin 3.8 Globulin 2.6 Albumin/Globulin Ratio 1.5 Vitamin B12 485 Folate > 20.0 Arterial Blood Potassium 4.2 06/25/18 06/25/18 06/25/18 11:50 11:58 16:55 WBC RBC Hgb Hct MCV MCH MCHC RDW Plt Count MPV Neut % (Auto) Lymph % (Auto) [place] % (Auto) Eos % (Auto) Baso % (Auto) Neut # (Auto) Lymph # (Auto) [place] # (Auto) Eos # (Auto) Baso # (Auto) Puncture Site Rra Rr pCO2 69 H 70 H pO2 55 L 65 L HCO3 33.4 H 33.8 H ABG pH 7.36 7.36 ABG Total CO2 41.1 H 41.6 H ABG O2 Saturation 94.2 L 96.0 ABG Base Excess 11.0 H 11.5 H ABG Hemoglobin 12.0 11.8 ABG Carboxyhemoglobin 1.9 H 1.7 H POC ABG HHb (Measured) 5.6 H 3.9 ABG Methemoglobin 1.0 1.6 Ramon Test Pos Na ABG Potassium A-a O2 Difference 144.0 133.0 Respiratory Index 2.6 2.0 Hgb O2 Saturation 91.4 L 92.7 L Glucose Lactate Vent Mode Bipap Bipap FiO2 40.0 40.0 Inspiratory BiPAP 14 16 Expiratory BiPAP 5 6 Crit Value Called To Crit Value Called By Crit Value Read Back Blood Gas Notified Time Sodium Potassium Chloride Carbon Dioxide Anion Gap BUN Creatinine Est GFR ( Amer) Est GFR (Non-Af Amer) POC Glucose (mg/dL) 162 H Random Glucose Hemoglobin A1c Calcium Phosphorus Magnesium Total Bilirubin AST ALT Alkaline Phosphatase Total Protein Albumin Globulin Albumin/Globulin Ratio Vitamin B12 Folate Arterial Blood Potassium Assessment & Plan - Assessment and Plan (Free Text) Assessment: 88 year old male w/ pmhx of lung cancer s/p radiation, COPD, CAD, CKD admitted for evaluation of worsening SOB, ICU consulted for management of hypercapnia Plan: -avoid benzos -hypercapnia resolved: continue bi-pap at night, NC during day to keep spo2 b/w 90-92 -CAD: remains hemodynamically stable, continue current management -continue dvt/pud ppx -DNR but not DNI -d/w son - Date & Time Date: 06/25/18 Time: 18:51
[2018-06-25] MEDS: Piperacillin/Tazobact 3.375 GM in Sodium Chloride 100 ML IVPB SCH (19:02)
--- NOTE | 2018-06-25 20:18 | CP.CCUPN ---
CCU Objective - Vital Signs / Intake & Output Vital Signs (Last 4 hours): Vital Signs Temp Pulse Resp BP Pulse Ox 06/25/18 18:50 99 H 32 H 95 06/25/18 18:27 92 H 25 H 125/58 L 96 06/25/18 18:20 96 H 35 H 97 06/25/18 18:10 97 H 31 H 94 L 06/25/18 18:04 99 H 21 96 06/25/18 18:00 99.1 F 96 06/25/18 17:40 98 H 35 H 95 Intake and Output (Last 8hrs): Intake & Output 06/25/18 06/25/18 06/25/18 06:59 14:59 22:59 Intake Total 180 Output Total 1500 Balance -1320 Weight 198 lb Intake: Intake, IV Amount 100 Left Forearm 100 Oral 80 Output: Urine 1500 Urine, Voided 1500 Other: # Bowel Movements 0 - Medications Active Medications: Active Medications Generic Name Dose Route Start Last Admin Trade Name Freq PRN Reason Stop Dose Admin Albuterol/Ipratropium 3 ml 06/24/18 20:00 06/25/18 19:52 Duoneb 3 Mg/0.5 Mg (3 Ml) Ud INH 3 ml RQ4 [facility] Administration Allopurinol 100 mg 06/25/18 10:00 06/25/18 10:32 Zyloprim PO 100 mg DAILY [facility] Administration Aspirin 81 mg 06/25/18 10:00 06/25/18 10:32 Aspirin Chewable PO 81 mg DAILY [facility] Administration Budesonide 0.5 mg 06/24/18 20:00 06/25/18 19:52 Pulmicort Respules IH 0.5 mg RQ12 [facility] Administration Carbamazepine 200 mg 06/25/18 10:00 06/25/18 10:32 Tegretol-Xr PO 200 mg DAILY [facility] Administration Cilostazol 50 mg 06/24/18 19:15 06/25/18 19:03 Pletal PO 50 mg BID [facility] Administration Clonazepam 0.25 mg 06/24/18 22:00 06/24/18 22:28 Klonopin- Half Tab PO 0.25 mg HS [facility] Administration Finasteride 5 mg 06/25/18 10:00 06/25/18 10:32 Proscar PO 5 mg DAILY [facility] Administration Folic Acid 1 mg 06/25/18 10:00 06/25/18 10:31 Folic Acid PO 1 mg DAILY [facility] Administration Furosemide 40 mg 06/25/18 22:00 Lasix IVP Q12 [facility] Gabapentin 100 mg 06/24/18 19:15 06/25/18 19:03 Neurontin PO 100 mg BID [facility] Administration Heparin Sodium (Porcine) 5,000 units 06/25/18 10:00 06/25/18 10:31 Heparin SC 5,000 units Q12 [facility] Administration Hydralazine HCl 50 mg 06/25/18 10:00 06/25/18 10:32 Apresoline PO 50 mg DAILY [facility] Administration Piperacillin Sod/Tazobactam 100 mls @ 200 mls/hr 06/25/18 18:00 06/25/18 19:02 Sod 3.375 gm/ Sodium Chloride IVPB 200 mls/hr Q8H [facility] Administration Protocol Insulin Aspart 0 unit 06/24/18 22:00 06/25/18 17:20 Novolog SC Not Given ACHS [facility] Protocol Isosorbide Mononitrate 120 mg 06/25/18 10:00 06/25/18 10:32 Imdur PO 120 mg DAILY [facility] Administration Labetalol HCl 300 mg 06/24/18 20:15 06/25/18 19:05 Normodyne PO 300 mg BID [facility] Administration Magnesium Oxide 400 mg 06/25/18 10:00 06/25/18 19:03 Mag-Ox PO 400 mg BID [facility] Administration Metformin HCl 500 mg 06/24/18 19:15 06/25/18 19:04 Glucophage PO Not Given BID [facility] Methylprednisolone 40 mg 06/24/18 22:00 06/25/18 10:31 Solu-Medrol IVP 40 mg Q12 [facility] Administration Pantoprazole Sodium 40 mg 06/25/18 10:00 06/25/18 10:32 Protonix Ec Tab PO 40 mg DAILY [facility] Administration Pramipexole Dihydrochloride 1 mg 06/24/18 19:30 06/24/18 21:55 Mirapex PO Not Given HS [facility] Primidone 250 mg 06/24/18 19:15 06/25/18 19:03 Mysoline PO 250 mg BID [facility] Administration Rosuvastatin Calcium 10 mg 06/24/18 22:00 06/24/18 22:28 Crestor PO 10 mg HS [facility] Administration Tamsulosin HCl 0.8 mg 06/25/18 10:00 06/25/18 10:31 Flomax PO 0.8 mg DAILY [facility] Administration - Patient Studies Lab Studies: Lab Studies 06/25/18 06/25/18 06/25/18 Range/Units 16:55 11:58 11:50 WBC (4.8-10.8) K/uL RBC (4.40-5.90) Mil/uL Hgb (12.0-18.0) g/dL Hct (35.0-51.0) % MCV (80.0-94.0) fL MCH (27.0-31.0) pg MCHC (33.0-37.0) g/dL RDW (11.5-14.5) % Plt Count (130-400) K/uL MPV (7.2-11.7) fL Neut % (Auto) (50.0-75.0) % Lymph % (Auto) (20.0-40.0) % [place] % (Auto) (0.0-10.0) % Eos % (Auto) (0.0-4.0) % Baso % (Auto) (0.0-2.0) % Neut # (Auto) (1.8-7.0) K/uL Lymph # (Auto) (1.0-4.3) K/uL [place] # (Auto) (0.0-0.8) K/uL Eos # (Auto) (0.0-0.7) K/uL Baso # (Auto) (0.0-0.2) K/uL Puncture Site Rr Rra pCO2 70 H 69 H (35-45) mm/Hg pO2 65 L 55 L (80-100) mm/Hg HCO3 33.8 H 33.4 H (21-28) mmol/L ABG pH 7.36 7.36 (7.35-7.45) ABG Total CO2 41.6 H 41.1 H (22-28) mmol/L ABG O2 Saturation 96.0 94.2 L (95-98) % ABG Base Excess 11.5 H 11.0 H (-2.0-3.0) mmol/L ABG Hemoglobin 11.8 12.0 (11.7-17.4) g/dL ABG Carboxyhemoglobin 1.7 H 1.9 H (0.5-1.5) % POC ABG HHb (Measured) 3.9 5.6 H (0.0-5.0) % ABG Methemoglobin 1.6 1.0 (0.0-3.0) % Ramon Test Na Pos ABG Potassium (3.6-5.2) mmol/L A-a O2 Difference 133.0 144.0 mm/Hg Respiratory Index 2.0 2.6 Hgb O2 Saturation 92.7 L 91.4 L (95.0-98.0) % Glucose (75-110) mg/dl Lactate (0.7-2.1) mmol/L Vent Mode Bipap Bipap FiO2 40.0 40.0 % Inspiratory BiPAP 16 14 Expiratory BiPAP 6 5 Crit Value Called To Crit Value Called By Crit Value Read Back Blood Gas Notified Time Sodium (132-148) mmol/L Potassium (3.6-5.2) mmol/L Chloride (98-107) mmol/L Carbon Dioxide (22-30) mmol/L Anion Gap (10-20) BUN (9-20) mg/dL Creatinine (0.8-1.5) mg/dL Est GFR ( Amer) Est GFR (Non-Af Amer) POC Glucose (mg/dL) 162 H (65-110) mg/dL Random Glucose (75-110) mg/dL Hemoglobin A1c (4.2-6.5) % Calcium (8.6-10.4) mg/dl Phosphorus (2.5-4.5) mg/dL Magnesium (1.6-2.3) mg/dL Total Bilirubin (0.2-1.3) mg/dL AST (17-59) U/L ALT (21-72) U/L Alkaline Phosphatase (38-126) U/L Total Protein (6.3-8.3) g/dL Albumin (3.5-5.0) g/dL Globulin (2.2-3.9) gm/dL Albumin/Globulin Ratio (1.0-2.1) Vitamin B12 (239-931) pg/mL Folate ng/mL Arterial Blood Potassium (3.6-5.2) mmol/L 06/25/18 06/25/18 06/25/18 Range/Units 09:47 08:23 08:23 WBC (4.8-10.8) K/uL RBC (4.40-5.90) Mil/uL Hgb (12.0-18.0) g/dL Hct (35.0-51.0) % MCV (80.0-94.0) fL MCH (27.0-31.0) pg MCHC (33.0-37.0) g/dL RDW (11.5-14.5) % Plt Count (130-400) K/uL MPV (7.2-11.7) fL Neut % (Auto) (50.0-75.0) % Lymph % (Auto) (20.0-40.0) % [place] % (Auto) (0.0-10.0) % Eos % (Auto) (0.0-4.0) % Baso % (Auto) (0.0-2.0) % Neut # (Auto) (1.8-7.0) K/uL Lymph # (Auto) (1.0-4.3) K/uL [place] # (Auto) (0.0-0.8) K/uL Eos # (Auto) (0.0-0.7) K/uL Baso # (Auto) (0.0-0.2) K/uL Puncture Site Rra pCO2 71 H* (35-45) mm/Hg pO2 55 L (80-100) mm/Hg HCO3 29.3 H (21-28) mmol/L ABG pH 7.30 L (7.35-7.45) ABG Total CO2 37.1 H (22-28) mmol/L ABG O2 Saturation 93.8 L (95-98) % ABG Base Excess 6.0 H (-2.0-3.0) mmol/L ABG Hemoglobin (11.7-17.4) g/dL ABG Carboxyhemoglobin (0.5-1.5) % POC ABG HHb (Measured) (0.0-5.0) % ABG Methemoglobin (0.0-3.0) % Ramon Test Pos ABG Potassium 4.2 (3.6-5.2) mmol/L A-a O2 Difference 141.0 mm/Hg Respiratory Index 2.6 Hgb O2 Saturation (95.0-98.0) % Glucose 202 H (75-110) mg/dl Lactate 1.7 (0.7-2.1) mmol/L Vent Mode Bipap FiO2 40.0 % Inspiratory BiPAP 10 Expiratory BiPAP 5 Crit Value Called To Dr rawls Crit Value Called By Eliot mota crane chaser Crit Value Read Back Y Blood Gas Notified Time 952 Sodium 141.0 140 (132-148) mmol/L Potassium 5.3 H (3.6-5.2) mmol/L Chloride 106.0 101 (98-107) mmol/L Carbon Dioxide 38 H (22-30) mmol/L Anion Gap 6 L (10-20) BUN 21 H (9-20) mg/dL Creatinine 1.1 (0.8-1.5) mg/dL Est GFR ( Amer) > 60 Est GFR (Non-Af Amer) > 60 POC Glucose (mg/dL) (65-110) mg/dL Random Glucose 123 H D (75-110) mg/dL Hemoglobin A1c 6.6 H (4.2-6.5) % Calcium 8.9 (8.6-10.4) mg/dl Phosphorus 4.0 (2.5-4.5) mg/dL Magnesium 2.1 (1.6-2.3) mg/dL Total Bilirubin 0.3 (0.2-1.3) mg/dL AST 23 (17-59) U/L ALT 20 L D (21-72) U/L Alkaline Phosphatase 103 (38-126) U/L Total Protein 6.4 (6.3-8.3) g/dL Albumin 3.8 (3.5-5.0) g/dL Globulin 2.6 (2.2-3.9) gm/dL Albumin/Globulin Ratio 1.5 (1.0-2.1) Vitamin B12 485 (239-931) pg/mL Folate > 20.0 ng/mL Arterial Blood Potassium 4.2 (3.6-5.2) mmol/L 06/25/18 06/25/18 06/24/18 Range/Units 08:23 06:53 21:51 WBC 5.1 (4.8-10.8) K/uL RBC 3.68 L (4.40-5.90) Mil/uL Hgb 12.7 (12.0-18.0) g/dL Hct 38.7 (35.0-51.0) % MCV 105.0 H (80.0-94.0) fL MCH 34.6 H (27.0-31.0) pg MCHC 33.0 (33.0-37.0) g/dL RDW 14.9 H (11.5-14.5) % Plt Count 108 L (130-400) K/uL MPV 9.3 (7.2-11.7) fL Neut % (Auto) 71.1 (50.0-75.0) % Lymph % (Auto) 16.0 L (20.0-40.0) % [place] % (Auto) 12.0 H (0.0-10.0) % Eos % (Auto) 0.6 (0.0-4.0) % Baso % (Auto) 0.3 (0.0-2.0) % Neut # (Auto) 3.6 (1.8-7.0) K/uL Lymph # (Auto) 0.8 L (1.0-4.3) K/uL [place] # (Auto) 0.6 (0.0-0.8) K/uL Eos # (Auto) 0.0 (0.0-0.7) K/uL Baso # (Auto) 0.0 (0.0-0.2) K/uL Puncture Site pCO2 (35-45) mm/Hg pO2 (80-100) mm/Hg HCO3 (21-28) mmol/L ABG pH (7.35-7.45) ABG Total CO2 (22-28) mmol/L ABG O2 Saturation (95-98) % ABG Base Excess (-2.0-3.0) mmol/L ABG Hemoglobin (11.7-17.4) g/dL ABG Carboxyhemoglobin (0.5-1.5) % POC ABG HHb (Measured) (0.0-5.0) % ABG Methemoglobin (0.0-3.0) % Ramon Test ABG Potassium (3.6-5.2) mmol/L A-a O2 Difference mm/Hg Respiratory Index Hgb O2 Saturation (95.0-98.0) % Glucose (75-110) mg/dl Lactate (0.7-2.1) mmol/L Vent Mode FiO2 % Inspiratory BiPAP Expiratory BiPAP Crit Value Called To Crit Value Called By Crit Value Read Back Blood Gas Notified Time Sodium (132-148) mmol/L Potassium (3.6-5.2) mmol/L Chloride (98-107) mmol/L Carbon Dioxide (22-30) mmol/L Anion Gap (10-20) BUN (9-20) mg/dL Creatinine (0.8-1.5) mg/dL Est GFR ( Amer) Est GFR (Non-Af Amer) POC Glucose (mg/dL) 127 H 298 H (65-110) mg/dL Random Glucose (75-110) mg/dL Hemoglobin A1c (4.2-6.5) % Calcium (8.6-10.4) mg/dl Phosphorus (2.5-4.5) mg/dL Magnesium (1.6-2.3) mg/dL Total Bilirubin (0.2-1.3) mg/dL AST (17-59) U/L ALT (21-72) U/L Alkaline Phosphatase (38-126) U/L Total Protein (6.3-8.3) g/dL Albumin (3.5-5.0) g/dL Globulin (2.2-3.9) gm/dL Albumin/Globulin Ratio (1.0-2.1) Vitamin B12 (239-931) pg/mL Folate ng/mL Arterial Blood Potassium (3.6-5.2) mmol/L Laboratory Results - last 24 hr 06/24/18 06/25/18 06/25/18 21:51 06:53 08:23 WBC 5.1 RBC 3.68 L Hgb 12.7 Hct 38.7 MCV 105.0 H MCH 34.6 H MCHC 33.0 RDW 14.9 H Plt Count 108 L MPV 9.3 Neut % (Auto) 71.1 Lymph % (Auto) 16.0 L [place] % (Auto) 12.0 H Eos % (Auto) 0.6 Baso % (Auto) 0.3 Neut # (Auto) 3.6 Lymph # (Auto) 0.8 L [place] # (Auto) 0.6 Eos # (Auto) 0.0 Baso # (Auto) 0.0 Puncture Site pCO2 pO2 HCO3 ABG pH ABG Total CO2 ABG O2 Saturation ABG Base Excess ABG Hemoglobin ABG Carboxyhemoglobin POC ABG HHb (Measured) ABG Methemoglobin Ramon Test ABG Potassium A-a O2 Difference Respiratory Index Hgb O2 Saturation Glucose Lactate Vent Mode FiO2 Inspiratory BiPAP Expiratory BiPAP Crit Value Called To Crit Value Called By Crit Value Read Back Blood Gas Notified Time Sodium Potassium Chloride Carbon Dioxide Anion Gap BUN Creatinine Est GFR ( Amer) Est GFR (Non-Af Amer) POC Glucose (mg/dL) 298 H 127 H Random Glucose Hemoglobin A1c Calcium Phosphorus Magnesium Total Bilirubin AST ALT Alkaline Phosphatase Total Protein Albumin Globulin Albumin/Globulin Ratio Vitamin B12 Folate Arterial Blood Potassium 06/25/18 06/25/18 06/25/18 08:23 08:23 09:47 WBC RBC Hgb Hct MCV MCH MCHC RDW Plt Count MPV Neut % (Auto) Lymph % (Auto) [place] % (Auto) Eos % (Auto) Baso % (Auto) Neut # (Auto) Lymph # (Auto) [place] # (Auto) Eos # (Auto) Baso # (Auto) Puncture Site Rra pCO2 71 H* pO2 55 L HCO3 29.3 H ABG pH 7.30 L ABG Total CO2 37.1 H ABG O2 Saturation 93.8 L ABG Base Excess 6.0 H ABG Hemoglobin ABG Carboxyhemoglobin POC ABG HHb (Measured) ABG Methemoglobin Ramon Test Pos ABG Potassium 4.2 A-a O2 Difference 141.0 Respiratory Index 2.6 Hgb O2 Saturation Glucose 202 H Lactate 1.7 Vent Mode Bipap FiO2 40.0 Inspiratory BiPAP 10 Expiratory BiPAP 5 Crit Value Called To Dr rawls Crit Value Called By Eliot mota crane chaser Crit Value Read Back Y Blood Gas Notified Time 952 Sodium 140 141.0 Potassium 5.3 H Chloride 101 106.0 Carbon Dioxide 38 H Anion Gap 6 L BUN 21 H Creatinine 1.1 Est GFR ( Amer) > 60 Est GFR (Non-Af Amer) > 60 POC Glucose (mg/dL) Random Glucose 123 H D Hemoglobin A1c 6.6 H Calcium 8.9 Phosphorus 4.0 Magnesium 2.1 Total Bilirubin 0.3 AST 23 ALT 20 L D Alkaline Phosphatase 103 Total Protein 6.4 Albumin 3.8 Globulin 2.6 Albumin/Globulin Ratio 1.5 Vitamin B12 485 Folate > 20.0 Arterial Blood Potassium 4.2 06/25/18 06/25/18 06/25/18 11:50 11:58 16:55 WBC RBC Hgb Hct MCV MCH MCHC RDW Plt Count MPV Neut % (Auto) Lymph % (Auto) Starke % (Auto) Eos % (Auto) Baso % (Auto) Neut # (Auto) Lymph # (Auto) Starke # (Auto) Eos # (Auto) Baso # (Auto) Puncture Site Rra Rr pCO2 69 H 70 H pO2 55 L 65 L HCO3 33.4 H 33.8 H ABG pH 7.36 7.36 ABG Total CO2 41.1 H 41.6 H ABG O2 Saturation 94.2 L 96.0 ABG Base Excess 11.0 H 11.5 H ABG Hemoglobin 12.0 11.8 ABG Carboxyhemoglobin 1.9 H 1.7 H POC ABG HHb (Measured) 5.6 H 3.9 ABG Methemoglobin 1.0 1.6 Ramon Test Pos Na ABG Potassium A-a O2 Difference 144.0 133.0 Respiratory Index 2.6 2.0 Hgb O2 Saturation 91.4 L 92.7 L Glucose Lactate Vent Mode Bipap Bipap FiO2 40.0 40.0 Inspiratory BiPAP 14 16 Expiratory BiPAP 5 6 Crit Value Called To Crit Value Called By Crit Value Read Back Blood Gas Notified Time Sodium Potassium Chloride Carbon Dioxide Anion Gap BUN Creatinine Est GFR ( Amer) Est GFR (Non-Af Amer) POC Glucose (mg/dL) 162 H Random Glucose Hemoglobin A1c Calcium Phosphorus Magnesium Total Bilirubin AST ALT Alkaline Phosphatase Total Protein Albumin Globulin Albumin/Globulin Ratio Vitamin B12 Folate Arterial Blood Potassium Radiology Impressions: Radiology Impressions Chest X-Ray 06/25/18 16:41 IMPRESSION: Right hilar prominence. Biapical pleural thickening. Pleural based opacity at the right lung apex with adjacent atelectasis or infiltrate. Left lower lobe atelectasis/infiltrate and small left pleural effusion. Cardiomegaly. Fingerstick Blood Sugar Results: 126 Critical Care Progress Note - Nutrition Nutrition: Nutrition Category Date Time Status NPO Diet [DIET] Diets 06/25/18 Dinner Active Assessment/Plan - Assessment and Plan (Free Text) Assessment: Spoke with the son and patient for clarification on code status. The patient is willing to be intubated for treatment, but does not want to be kept alive on a ventilator for a prolonged period if there is no hope of recovery. He also does not want chest compressions or resuscitation if his heart stops. So, the patient is DNR only. Critical care time 10 minutes
[2018-06-25] MEDS: clonazePAM 0.25 MG TAB PO SCH (21:45)
[2018-06-25 22:16] LABS: URINE BACTERIA RARE (<OCC); URINE BILIRUBIN NEGATIVE (NEGATIVE); URINE BLOOD NEGATIVE (NEGATIVE); URINE CLARITY Clear (Clear); URINE COLOR Yellow (YELLOW); URINE GLUCOSE (UA) NORMAL (Normal); URINE LEUKOCYTE ESTERASE NEG Leu/uL (Negative); URINE PROTEIN NEGATIVE (NEGATIVE); URINE UROBILINOGEN NORMAL mg/dL (0.2-1.0)
[2018-06-26] MEDS: Albuterol-Ipratrop 3 mg / 0.5 (3 ml) UD INH SCH ×6 (00:25→20:43)
[2018-06-26] MEDS: Piperacillin/Tazobact 3.375 GM in Sodium Chloride 100 ML IVPB SCH ×3 (02:21→17:33)
[2018-06-26 06:02] LABS: BASO % 0.2 % (0.0-2.0); LYMPH # 0.8 K/uL (1.0-4.3); LYMPH % 15.7 % (20.0-40.0); MEAN CELL VOLUME 103.5 fL (80.0-94.0); MEAN CORPUSCULAR HEMOGLOBIN 34.5 pg (27.0-31.0); MEAN CORPUSCULAR HGB CONC 33.3 g/dL (33.0-37.0); MEAN PLATELET VOLUME 9.6 fL (7.2-11.7); MONO # 0.6 K/uL (0.0-0.8); MONO % 12.1 % (0.0-10.0); NEUT # 3.5 K/uL (1.8-7.0); NRBC % 0.1 % (0.0-2.0); RBC 3.76 Mil/uL (4.40-5.90); RED CELL DISTRIBUTION WIDTH 14.7 % (11.5-14.5)
[2018-06-26 06:21] LABS: INFLUENZA A B NEGATIVE FOR FLU A/B (NEGATIVE)
[2018-06-26 06:49] LABS: ALB/GLOB RATIO 1.4 (1.0-2.1); ALBUMIN 4.1 g/dL (3.5-5.0); ALT/SGPT 29 U/L (21-72); AST/SGOT 37 U/L (17-59); BLOOD UREA NITROGEN 25 mg/dL (9-20); CALCIUM 8.8 mg/dl (8.6-10.4); GFR NON-AFRICAN AMERICAN 57
[2018-06-26] MEDS: Budesonide 0.5 mg/2 ml Inhal Susp UD IH SCH ×2 (07:22→20:43)
[2018-06-26] MEDS: (Novolog) Insulin Aspart, Recombinant 100 u/ml 10 ml vial SC SCH ×4 (07:30→22:00)
[2018-06-26] MEDS: MethylPREDNISolone 40 mg Vial IVP SCH ×2 (10:20→21:58)
[2018-06-26] MEDS: Pantoprazole 40 mg EC Tab PO SCH (10:21)
[2018-06-26] MEDS: Magnesium Oxide 400 mg Tab UD PO SCH ×2 (10:22→17:36)
[2018-06-26] MEDS: Cilostazol 50 mg Tab UD PO SCH ×2 (10:29→17:41)
[2018-06-26] MEDS: Labetalol Hydrochloride 300 mg Tab PO SCH ×2 (10:29→17:37)
[2018-06-26 12:01] LABS: ARTERIAL BLOOD GAS HCO3 25.2 mmol/L (21-28); ARTERIAL BLOOD GAS HEMOGLOBIN 9.2 g/dL (11.7-17.4); ARTERIAL BLOOD GAS PCO2 35 mm/Hg (35-45); ARTERIAL BLOOD GAS PH 7.45 (7.35-7.45); ARTERIAL BLOOD GAS PO2 50 mm/Hg (80-100); ARTERIAL BLOOD GAS TCO2 25.4 mmol/L (22-28)
--- NOTE | 2018-06-26 13:58 | CT ---
Date of service: 06/25/2018 PROCEDURE: CT Chest without contrast HISTORY: dyspnea, possible aspiration COMPARISON: None available. TECHNIQUE: Contiguous axial images were obtained through the chest without intravenous contrast enhancement. Sagittal and coronal reconstructions were performed. Radiation dose: Total exam DLP = 923.49 mGy-cm. This CT exam was performed using one or more of the following dose reduction techniques: Automated exposure control, adjustment of the mA and/or kV according to patient size, and/or use of iterative reconstruction technique. FINDINGS: LUNGS: Lower lobe infiltrates/atelectasis. Right perihilar mass inseparable from right pulmonary artery measures 3.4 x 5.1 cm. Pulmonary nodule 7 x 9 mm superior segment right lower lobe. Spiculated irregular mass posterior segment right upper lobe 2.6 x 3.1 cm. Peripheral mass right upper lobe. Underlying hyperinflation/manifestations of COPD. Bronchitic changes, moderate primarily central. MEDIASTINUM: Unremarkable thoracic aorta. No aneurysm. Normal sized heart. Main pulmonary artery unremarkable. No vascular congestion. No lymphadenopathy. Atherosclerotic calcification and mural plaque present. Findings are seen throughout the aorta extending from the arch to the visible non aneurysmal upper abdominal aorta. PLEURA: No pleural fluid. No pneumothorax. BONES: No fracture. No destructive lesion. UPPER ABDOMEN: Enlarged right adrenal gland 2.3 x 2.4 cm. OTHER FINDINGS: None. IMPRESSION: 1. Highly suspicious findings in both lungs and right hilar for tumor. 2. Basilar atelectasis/infiltrates. 3. Underlying emphysematous changes and bronchitic findings. 4. Enlarged right adrenal gland.
--- NOTE | 2018-06-26 15:23 | CP.CCUPN ---
<Ophelia Howell - Last Filed: 06/26/18 16:26> CCU Subjective - Physician Review Subjective (Free Text): 06/26/18 15:43 Patient examined at bedside. No acute overnight events. Patient transitioned of BiPAP t vapotherm without complaint. Patient reporting he wants to get out of bed to chair; requests food. Patient reports phlegm for which he suctions prn. Denies chest pain, SOB, abdominal pain, nausea. CCU Objective - Vital Signs / Intake & Output Vital Signs (Last 4 hours): Vital Signs Temp Pulse Resp BP Pulse Ox 06/26/18 14:33 16 06/26/18 14:02 108 H 26 H 127/62 91 L 06/26/18 14:00 118 H 21 94 L 06/26/18 13:02 108 H 28 H 132/64 91 L 06/26/18 12:02 105 H 31 H 129/68 85 L 06/26/18 12:00 99 F 25 H 100 Intake and Output (Last 8hrs): Intake & Output 06/26/18 06/26/18 06/26/18 06:59 14:59 22:59 Intake Total 100 440 Output Total 2000 Balance -1900 440 Weight 197 lb 11.2 oz Intake: Intake, IV Amount 100 100 Left Forearm 100 100 Oral 0 340 Output: Urine 2000 Urine, Voided 1999 Other: # Bowel Movements 0 0 - Physical Exam Head: Positive for: Atraumatic, Normocephalic Pupils: Positive for: PERRL Extroacular Muscles: Positive for: EOMI Conjunctiva: Positive for: Normal Mouth: Positive for: Dry Neck: Positive for: Normal Range of Motion Respiratory/Chest: Positive for: Decreased Breath Sounds. Negative for: Respiratory Distress Cardiovascular: Positive for: Normal S1, S2, Tachycardic Abdomen: Negative for: Tenderness, Distention Upper Extremity: Negative for: Normal Inspection (ecchymosis) Lower Extremity: Negative for: Normal Inspection (ecchymosis) Neurological: Positive for: GCS=15, Speech Normal Skin: Positive for: Warm, Dry, Other (ecchymosis diffusely extremities) Psychiatric: Positive for: Alert, Oriented x 3, Normal Insight - Medications Active Medications: Active Medications Generic Name Dose Route Start Last Admin Trade Name Freq PRN Reason Stop Dose Admin Albuterol/Ipratropium 3 ml 06/24/18 20:00 06/26/18 11:00 Duoneb 3 Mg/0.5 Mg (3 Ml) Ud INH 3 ml RQ4 SYDNEY Administration Allopurinol 100 mg 06/25/18 10:00 06/26/18 10:31 Zyloprim PO 100 mg DAILY SYNDEY Administration Aspirin 81 mg 06/25/18 10:00 06/26/18 10:21 Aspirin Chewable PO 81 mg DAILY SYDNEY Administration Budesonide 0.5 mg 06/24/18 20:00 06/26/18 07:22 Pulmicort Respules IH 0.5 mg RQ12 SYDNEY Administration Carbamazepine 200 mg 06/25/18 10:00 06/26/18 10:30 Tegretol-Xr PO 200 mg DAILY SYDNEY Administration Cilostazol 50 mg 06/24/18 19:15 06/26/18 10:29 Pletal PO 50 mg BID SYDNEY Administration Docusate Sodium 100 mg 06/26/18 11:45 06/26/18 13:46 Colace PO 100 mg BID SYDNEY Administration Finasteride 5 mg 06/25/18 10:00 06/26/18 10:21 Proscar PO 5 mg DAILY SYDNEY Administration Folic Acid 1 mg 06/25/18 10:00 06/26/18 10:21 Folic Acid PO 1 mg DAILY SYDNEY Administration Furosemide 40 mg 06/25/18 22:00 06/26/18 10:20 Lasix IVP 40 mg Q12 SYDNEY Administration Gabapentin 100 mg 06/24/18 19:15 06/26/18 10:21 Neurontin PO 100 mg BID SYDNEY Administration Heparin Sodium (Porcine) 5,000 units 06/25/18 10:00 06/26/18 10:20 Heparin SC 5,000 units Q12 SYDNEY Administration Hydralazine HCl 50 mg 06/25/18 10:00 06/26/18 13:44 Apresoline PO 50 mg DAILY SYDNEY Administration Piperacillin Sod/Tazobactam 100 mls @ 200 mls/hr 06/25/18 18:00 06/26/18 09:40 Sod 3.375 gm/ Sodium Chloride IVPB 200 mls/hr Q8H SYDNEY Administration Protocol Insulin Aspart 0 unit 06/24/18 22:00 06/26/18 13:48 Novolog SC Not Given ACHS [facility] Protocol Isosorbide Mononitrate 120 mg 06/25/18 10:00 06/26/18 10:22 Imdur PO 120 mg DAILY SYDNEY Administration Labetalol HCl 300 mg 06/24/18 20:15 06/26/18 10:29 Normodyne PO 300 mg BID SYDNEY Administration Magnesium Oxide 400 mg 06/25/18 10:00 06/26/18 10:22 Mag-Ox PO 400 mg BID SYDNEY Administration Methylprednisolone 40 mg 06/24/18 22:00 06/26/18 10:20 Solu-Medrol IVP 40 mg Q12 SYDNEY Administration Pantoprazole Sodium 40 mg 06/25/18 10:00 06/26/18 10:21 Protonix Ec Tab PO 40 mg DAILY SYDNEY Administration Pramipexole Dihydrochloride 1 mg 06/24/18 19:30 06/25/18 21:45 Mirapex PO Not Given HS SYDNEY Primidone 250 mg 06/24/18 19:15 06/26/18 10:29 Mysoline PO 250 mg BID SYDNEY Administration Rosuvastatin Calcium 10 mg 06/24/18 22:00 06/25/18 21:45 Crestor PO Not Given HS SYDNEY Tamsulosin HCl 0.8 mg 06/25/18 10:00 06/26/18 10:21 Flomax PO 0.8 mg DAILY SYDNEY Administration - Patient Studies Lab Studies: Lab Studies 06/26/18 06/26/18 06/26/18 Range/Units 11:58 05:52 05:52 WBC (4.8-10.8) K/uL RBC (4.40-5.90) Mil/uL Hgb (12.0-18.0) g/dL Hct (35.0-51.0) % MCV (80.0-94.0) fL MCH (27.0-31.0) pg MCHC (33.0-37.0) g/dL RDW (11.5-14.5) % Plt Count (130-400) K/uL MPV (7.2-11.7) fL Neut % (Auto) (50.0-75.0) % Lymph % (Auto) (20.0-40.0) % [place] % (Auto) (0.0-10.0) % Eos % (Auto) (0.0-4.0) % Baso % (Auto) (0.0-2.0) % Neut # (Auto) (1.8-7.0) K/uL Lymph # (Auto) (1.0-4.3) K/uL [place] # (Auto) (0.0-0.8) K/uL Eos # (Auto) (0.0-0.7) K/uL Baso # (Auto) (0.0-0.2) K/uL Puncture Site Lb pCO2 35 (35-45) mm/Hg pO2 50 L (80-100) mm/Hg HCO3 25.2 (21-28) mmol/L ABG pH 7.45 (7.35-7.45) ABG Total CO2 25.4 (22-28) mmol/L ABG O2 Saturation 92.0 L (95-98) % ABG Base Excess 0.5 (-2.0-3.0) mmol/L ABG Hemoglobin 9.2 L (11.7-17.4) g/dL ABG Carboxyhemoglobin 2.0 H (0.5-1.5) % POC ABG HHb (Measured) 7.8 H (0.0-5.0) % ABG Methemoglobin 0.8 (0.0-3.0) % Ramon Test Na A-a O2 Difference 191.0 mm/Hg Respiratory Index 3.8 Hgb O2 Saturation 89.3 L (95.0-98.0) % Vent Mode FiO2 40.0 % Inspiratory BiPAP Expiratory BiPAP Crit Value Called To Dr smith Crit Value Called By Jarred chandra industrial cafeteria manager Crit Value Read Back Y Blood Gas Notified Time 1200 Sodium 140 (132-148) mmol/L Potassium 4.5 (3.6-5.2) mmol/L Chloride 93 L (98-107) mmol/L Carbon Dioxide 42 H* (22-30) mmol/L Anion Gap 10 (10-20) BUN 25 H (9-20) mg/dL Creatinine 1.2 (0.8-1.5) mg/dL Est GFR ( Amer) > 60 Est GFR (Non-Af Amer) 57 POC Glucose (mg/dL) (65-110) mg/dL Random Glucose 129 H (75-110) mg/dL Calcium 8.8 (8.6-10.4) mg/dl Phosphorus 4.3 (2.5-4.5) mg/dL Magnesium 1.9 (1.6-2.3) mg/dL Total Bilirubin 0.8 (0.2-1.3) mg/dL AST 37 (17-59) U/L ALT 29 (21-72) U/L Alkaline Phosphatase 113 (38-126) U/L Total Protein 7.0 (6.3-8.3) g/dL Albumin 4.1 (3.5-5.0) g/dL Globulin 2.9 (2.2-3.9) gm/dL Albumin/Globulin Ratio 1.4 (1.0-2.1) Procalcitonin 0.11 L (0.19-0.49) NG/ML Urine Color (YELLOW) Urine Clarity (Clear) Urine pH (5.0-8.0) Ur Specific [place] (1.003-1.030) Urine Protein (NEGATIVE) mg/dL Urine Glucose (UA) (Normal) mg/dL Urine Ketones (NEGATIVE) mg/dL Urine Blood (NEGATIVE) Urine Nitrate (NEGATIVE) Urine Bilirubin (NEGATIVE) Urine Urobilinogen (0.2-1.0) mg/dL Ur Leukocyte Esterase (Negative) Jennifer/uL Urine WBC (Auto) (0-5) /hpf Urine RBC (Auto) (0-3) /hpf Urine Bacteria (<OCC) Influenza Typ A,B (EIA) Negative for flu a/b (NEGATIVE) Ur L.pneumophila Ag (NEGATIVE) S. pneumoniae Antigen (NEGATIVE) 06/26/18 06/25/18 06/25/18 Range/Units 05:52 22:19 22:01 WBC 5.0 (4.8-10.8) K/uL RBC 3.76 L (4.40-5.90) Mil/uL Hgb 13.0 (12.0-18.0) g/dL Hct 38.9 (35.0-51.0) % MCV 103.5 H (80.0-94.0) fL MCH 34.5 H (27.0-31.0) pg MCHC 33.3 (33.0-37.0) g/dL RDW 14.7 H (11.5-14.5) % Plt Count 127 L (130-400) K/uL MPV 9.6 (7.2-11.7) fL Neut % (Auto) 71.0 (50.0-75.0) % Lymph % (Auto) 15.7 L (20.0-40.0) % [place] % (Auto) 12.1 H (0.0-10.0) % Eos % (Auto) 1.0 (0.0-4.0) % Baso % (Auto) 0.2 (0.0-2.0) % Neut # (Auto) 3.5 (1.8-7.0) K/uL Lymph # (Auto) 0.8 L (1.0-4.3) K/uL [place] # (Auto) 0.6 (0.0-0.8) K/uL Eos # (Auto) 0.0 (0.0-0.7) K/uL Baso # (Auto) 0.0 (0.0-0.2) K/uL Puncture Site pCO2 (35-45) mm/Hg pO2 (80-100) mm/Hg HCO3 (21-28) mmol/L ABG pH (7.35-7.45) ABG Total CO2 (22-28) mmol/L ABG O2 Saturation (95-98) % ABG Base Excess (-2.0-3.0) mmol/L ABG Hemoglobin (11.7-17.4) g/dL ABG Carboxyhemoglobin (0.5-1.5) % POC ABG HHb (Measured) (0.0-5.0) % ABG Methemoglobin (0.0-3.0) % Ramon Test A-a O2 Difference mm/Hg Respiratory Index Hgb O2 Saturation (95.0-98.0) % Vent Mode FiO2 % Inspiratory BiPAP Expiratory BiPAP Crit Value Called To Crit Value Called By Crit Value Read Back Blood Gas Notified Time Sodium (132-148) mmol/L Potassium (3.6-5.2) mmol/L Chloride (98-107) mmol/L Carbon Dioxide (22-30) mmol/L Anion Gap (10-20) BUN (9-20) mg/dL Creatinine (0.8-1.5) mg/dL Est GFR ( Amer) Est GFR (Non-Af Amer) POC Glucose (mg/dL) (65-110) mg/dL Random Glucose (75-110) mg/dL Calcium (8.6-10.4) mg/dl Phosphorus (2.5-4.5) mg/dL Magnesium (1.6-2.3) mg/dL Total Bilirubin (0.2-1.3) mg/dL AST (17-59) U/L ALT (21-72) U/L Alkaline Phosphatase (38-126) U/L Total Protein (6.3-8.3) g/dL Albumin (3.5-5.0) g/dL Globulin (2.2-3.9) gm/dL Albumin/Globulin Ratio (1.0-2.1) Procalcitonin (0.19-0.49) NG/ML Urine Color Yellow (YELLOW) Urine Clarity Clear (Clear) Urine pH 5.0 (5.0-8.0) Ur Specific [place] 1.016 (1.003-1.030) Urine Protein Negative (NEGATIVE) mg/dL Urine Glucose (UA) Normal (Normal) mg/dL Urine Ketones Negative (NEGATIVE) mg/dL Urine Blood Negative (NEGATIVE) Urine Nitrate Negative (NEGATIVE) Urine Bilirubin Negative (NEGATIVE) Urine Urobilinogen Normal (0.2-1.0) mg/dL Ur Leukocyte Esterase Neg (Negative) Jennifer/uL Urine WBC (Auto) 2 (0-5) /hpf Urine RBC (Auto) 2 (0-3) /hpf Urine Bacteria Rare (<OCC) Influenza Typ A,B (EIA) (NEGATIVE) Ur L.pneumophila Ag Negative (NEGATIVE) S. pneumoniae Antigen (NEGATIVE) 06/25/18 06/25/18 06/25/18 Range/Units 22:01 17:11 16:55 WBC (4.8-10.8) K/uL RBC (4.40-5.90) Mil/uL Hgb (12.0-18.0) g/dL Hct (35.0-51.0) % MCV (80.0-94.0) fL MCH (27.0-31.0) pg MCHC (33.0-37.0) g/dL RDW (11.5-14.5) % Plt Count (130-400) K/uL MPV (7.2-11.7) fL Neut % (Auto) (50.0-75.0) % Lymph % (Auto) (20.0-40.0) % [place] % (Auto) (0.0-10.0) % Eos % (Auto) (0.0-4.0) % Baso % (Auto) (0.0-2.0) % Neut # (Auto) (1.8-7.0) K/uL Lymph # (Auto) (1.0-4.3) K/uL [place] # (Auto) (0.0-0.8) K/uL Eos # (Auto) (0.0-0.7) K/uL Baso # (Auto) (0.0-0.2) K/uL Puncture Site Rr pCO2 70 H (35-45) mm/Hg pO2 65 L (80-100) mm/Hg HCO3 33.8 H (21-28) mmol/L ABG pH 7.36 (7.35-7.45) ABG Total CO2 41.6 H (22-28) mmol/L ABG O2 Saturation 96.0 (95-98) % ABG Base Excess 11.5 H (-2.0-3.0) mmol/L ABG Hemoglobin 11.8 (11.7-17.4) g/dL ABG Carboxyhemoglobin 1.7 H (0.5-1.5) % POC ABG HHb (Measured) 3.9 (0.0-5.0) % ABG Methemoglobin 1.6 (0.0-3.0) % Ramon Test Na A-a O2 Difference 133.0 mm/Hg Respiratory Index 2.0 Hgb O2 Saturation 92.7 L (95.0-98.0) % Vent Mode Bipap FiO2 40.0 % Inspiratory BiPAP 16 Expiratory BiPAP 6 Crit Value Called To Crit Value Called By Crit Value Read Back Blood Gas Notified Time Sodium (132-148) mmol/L Potassium (3.6-5.2) mmol/L Chloride (98-107) mmol/L Carbon Dioxide (22-30) mmol/L Anion Gap (10-20) BUN (9-20) mg/dL Creatinine (0.8-1.5) mg/dL Est GFR ( Amer) Est GFR (Non-Af Amer) POC Glucose (mg/dL) 126 H (65-110) mg/dL Random Glucose (75-110) mg/dL Calcium (8.6-10.4) mg/dl Phosphorus (2.5-4.5) mg/dL Magnesium (1.6-2.3) mg/dL Total Bilirubin (0.2-1.3) mg/dL AST (17-59) U/L ALT (21-72) U/L Alkaline Phosphatase (38-126) U/L Total Protein (6.3-8.3) g/dL Albumin (3.5-5.0) g/dL Globulin (2.2-3.9) gm/dL Albumin/Globulin Ratio (1.0-2.1) Procalcitonin (0.19-0.49) NG/ML Urine Color (YELLOW) Urine Clarity (Clear) Urine pH (5.0-8.0) Ur Specific [place] (1.003-1.030) Urine Protein (NEGATIVE) mg/dL Urine Glucose (UA) (Normal) mg/dL Urine Ketones (NEGATIVE) mg/dL Urine Blood (NEGATIVE) Urine Nitrate (NEGATIVE) Urine Bilirubin (NEGATIVE) Urine Urobilinogen (0.2-1.0) mg/dL Ur Leukocyte Esterase (Negative) Jennifer/uL Urine WBC (Auto) (0-5) /hpf Urine RBC (Auto) (0-3) /hpf Urine Bacteria (<OCC) Influenza Typ A,B (EIA) (NEGATIVE) Ur L.pneumophila Ag (NEGATIVE) S. pneumoniae Antigen Negative (NEGATIVE) Laboratory Results - last 24 hr 06/25/18 06/25/18 06/25/18 16:55 17:11 22:01 WBC RBC Hgb Hct MCV MCH MCHC RDW Plt Count MPV Neut % (Auto) Lymph % (Auto) [place] % (Auto) Eos % (Auto) Baso % (Auto) Neut # (Auto) Lymph # (Auto) [place] # (Auto) Eos # (Auto) Baso # (Auto) Puncture Site Rr pCO2 70 H pO2 65 L HCO3 33.8 H ABG pH 7.36 ABG Total CO2 41.6 H ABG O2 Saturation 96.0 ABG Base Excess 11.5 H ABG Hemoglobin 11.8 ABG Carboxyhemoglobin 1.7 H POC ABG HHb (Measured) 3.9 ABG Methemoglobin 1.6 Ramon Test Na A-a O2 Difference 133.0 Respiratory Index 2.0 Hgb O2 Saturation 92.7 L Vent Mode Bipap FiO2 40.0 Inspiratory BiPAP 16 Expiratory BiPAP 6 Crit Value Called To Crit Value Called By Crit Value Read Back Blood Gas Notified Time Sodium Potassium Chloride Carbon Dioxide Anion Gap BUN Creatinine Est GFR ( Amer) Est GFR (Non-Af Amer) POC Glucose (mg/dL) 126 H Random Glucose Calcium Phosphorus Magnesium Total Bilirubin AST ALT Alkaline Phosphatase Total Protein Albumin Globulin Albumin/Globulin Ratio Procalcitonin Urine Color Urine Clarity Urine pH Ur Specific [place] Urine Protein Urine Glucose (UA) Urine Ketones Urine Blood Urine Nitrate Urine Bilirubin Urine Urobilinogen Ur Leukocyte Esterase Urine WBC (Auto) Urine RBC (Auto) Urine Bacteria Influenza Typ A,B (EIA) Ur L.pneumophila Ag S. pneumoniae Antigen Negative 06/25/18 06/25/18 06/26/18 22:01 22:19 05:52 WBC 5.0 RBC 3.76 L Hgb 13.0 Hct 38.9 MCV 103.5 H MCH 34.5 H MCHC 33.3 RDW 14.7 H Plt Count 127 L MPV 9.6 Neut % (Auto) 71.0 Lymph % (Auto) 15.7 L [place] % (Auto) 12.1 H Eos % (Auto) 1.0 Baso % (Auto) 0.2 Neut # (Auto) 3.5 Lymph # (Auto) 0.8 L [place] # (Auto) 0.6 Eos # (Auto) 0.0 Baso # (Auto) 0.0 Puncture Site pCO2 pO2 HCO3 ABG pH ABG Total CO2 ABG O2 Saturation ABG Base Excess ABG Hemoglobin ABG Carboxyhemoglobin POC ABG HHb (Measured) ABG Methemoglobin Ramon Test A-a O2 Difference Respiratory Index Hgb O2 Saturation Vent Mode FiO2 Inspiratory BiPAP Expiratory BiPAP Crit Value Called To Crit Value Called By Crit Value Read Back Blood Gas Notified Time Sodium Potassium Chloride Carbon Dioxide Anion Gap BUN Creatinine Est GFR ( Amer) Est GFR (Non-Af Amer) POC Glucose (mg/dL) Random Glucose Calcium Phosphorus Magnesium Total Bilirubin AST ALT Alkaline Phosphatase Total Protein Albumin Globulin Albumin/Globulin Ratio Procalcitonin Urine Color Yellow Urine Clarity Clear Urine pH 5.0 Ur Specific [place] 1.016 Urine Protein Negative Urine Glucose (UA) Normal Urine Ketones Negative Urine Blood Negative Urine Nitrate Negative Urine Bilirubin Negative Urine Urobilinogen Normal Ur Leukocyte Esterase Neg Urine WBC (Auto) 2 Urine RBC (Auto) 2 Urine Bacteria Rare Influenza Typ A,B (EIA) Ur L.pneumophila Ag Negative S. pneumoniae Antigen 06/26/18 06/26/18 06/26/18 05:52 05:52 11:58 WBC RBC Hgb Hct MCV MCH MCHC RDW Plt Count MPV Neut % (Auto) Lymph % (Auto) [place] % (Auto) Eos % (Auto) Baso % (Auto) Neut # (Auto) Lymph # (Auto) [place] # (Auto) Eos # (Auto) Baso # (Auto) Puncture Site Lb pCO2 35 pO2 50 L HCO3 25.2 ABG pH 7.45 ABG Total CO2 25.4 ABG O2 Saturation 92.0 L ABG Base Excess 0.5 ABG Hemoglobin 9.2 L ABG Carboxyhemoglobin 2.0 H POC ABG HHb (Measured) 7.8 H ABG Methemoglobin 0.8 Ramon Test Na A-a O2 Difference 191.0 Respiratory Index 3.8 Hgb O2 Saturation 89.3 L Vent Mode FiO2 40.0 Inspiratory BiPAP Expiratory BiPAP Crit Value Called To Dr smith Crit Value Called By Jarred chandra industrial cafeteria manager Crit Value Read Back Y Blood Gas Notified Time 1200 Sodium 140 Potassium 4.5 Chloride 93 L Carbon Dioxide 42 H* Anion Gap 10 BUN 25 H Creatinine 1.2 Est GFR ( Amer) > 60 Est GFR (Non-Af Amer) 57 POC Glucose (mg/dL) Random Glucose 129 H Calcium 8.8 Phosphorus 4.3 Magnesium 1.9 Total Bilirubin 0.8 AST 37 ALT 29 Alkaline Phosphatase 113 Total Protein 7.0 Albumin 4.1 Globulin 2.9 Albumin/Globulin Ratio 1.4 Procalcitonin 0.11 L Urine Color Urine Clarity Urine pH Ur Specific [place] Urine Protein Urine Glucose (UA) Urine Ketones Urine Blood Urine Nitrate Urine Bilirubin Urine Urobilinogen Ur Leukocyte Esterase Urine WBC (Auto) Urine RBC (Auto) Urine Bacteria Influenza Typ A,B (EIA) Negative for flu a/b Ur L.pneumophila Ag S. pneumoniae Antigen Radiology Impressions: Radiology Impressions Chest X-Ray 06/25/18 16:41 IMPRESSION: Right hilar prominence. Biapical pleural thickening. Pleural based opacity at the right lung apex with adjacent atelectasis or infiltrate. Left lower lobe atelectasis/infiltrate and small left pleural effusion. Cardiomegaly. Chest CT 06/25/18 16:54 IMPRESSION: 1. Highly suspicious findings in both lungs and right hilar for tumor. 2. Basilar atelectasis/infiltrates. 3. Underlying emphysematous changes and bronchitic findings. 4. Enlarged right adrenal gland. Fingerstick Blood Sugar Results: 139 Review of Systems - EENT Nose/Mouth/Throat: absent: Dysphagia, Odynophagia - Cardiovascular Cardiovascular: absent: Chest Pain - Respiratory Respiratory: Cough, Excessive Mucous Production. absent: Dyspnea - Gastrointestinal Gastrointestinal: UNREMARKABLE. absent: Abdominal Pain - Integumentary Integumentary: Unusual Bruising - Hematologic/Lymphatic Hematologic: Easy Bruising Critical Care Progress Note - Nutrition Nutrition: Nutrition Category Date Time Status Renal Diet [DIET] Diets 06/26/18 Breakfast Active Assessment/Plan - Assessment and Plan (Free Text) Assessment: 88 year old male w/ pmhx of lung cancer s/p radiation, COPD, CAD, CKD admitted for evaluation of worsening SOB, ICU consulted for management og hypercapnia Plan: Neuro: AAOx3, GCS 15 Passed bedside swallow Tegretol, Primidone, Gabapentin Pramipexole Pulm: Bibasilar atelectasis/infiltrates Duonebs, Pulmicort, methylprednisolone Diuresis with Lasix Hypercapnia resolving on vapotherm, BiPAP PRN Adjust FiO2 accordingly CV: Hemodynamically stable BP control, home meds ASA, B-crista, statin GI Passed nursing swallow Start dysphagia/low Na+, low K+, low carb diet : aguila in place I/Os Proscar, flomax Endo ISS accuchecks Ppx VTE: heparin GI: protonix PT/OT DNR, no DNI-pt willing to be intubated for for therapeutic tx of hypercapnia Discussed w/ Dr. Elder -Ophelia Howell, PGY-1 <Bee Elder M - Last Filed: 06/30/18 20:27> CCU Objective - Vital Signs / Intake & Output Vital Signs (Last 4 hours): Vital Signs Pulse 06/30/18 20:16 92 H Intake and Output (Last 8hrs): Intake & Output 06/30/18 06/30/18 06/30/18 06:59 14:59 22:59 Intake Total 200 200 Output Total 701 850 Balance -501 -650 Weight 175 lb 8 oz Intake: Intake, IV Amount 100 100 Left Forearm 100 100 Oral 100 100 Output: Urine 700 850 Urethral ([place]) 700 850 Urine/Stool Mix 1 Other: # Bowel Movements 2 2 - Medications Active Medications: Active Medications Generic Name Dose Route Start Last Admin Trade Name Freq PRN Reason Stop Dose Admin Albuterol/Ipratropium 3 ml 06/24/18 20:00 06/30/18 20:14 Duoneb 3 Mg/0.5 Mg (3 Ml) Ud INH 3 ml RQ4 SYDNEY Administration Allopurinol 100 mg 06/25/18 10:00 06/30/18 10:00 Zyloprim PO 100 mg DAILY SYDNEY Administration Aspirin 81 mg 06/25/18 10:00 06/30/18 10:01 Aspirin Chewable PO 81 mg DAILY SY[place]NEY Administration Budesonide 0.5 mg 06/24/18 20:00 06/30/18 20:14 Pulmicort Respules IH 0.5 mg RQ12 SYDNEY Administration Carbamazepine 200 mg 06/25/18 10:00 06/30/18 10:06 Tegretol-Xr PO 200 mg DAILY SYDNEY Administration Cilostazol 50 mg 06/24/18 19:15 06/30/18 17:32 Pletal PO 50 mg BID SYDNEY Administration Docusate Sodium 100 mg 06/26/18 11:45 06/30/18 17:32 Colace PO 100 mg BID SY[place]NEY Administration Finasteride 5 mg 06/25/18 10:00 06/30/18 10:00 Proscar PO 5 mg DAILY SY[place]NEY Administration Folic Acid 1 mg 06/25/18 10:00 06/30/18 10:01 Folic Acid PO 1 mg DAILY SY[place]NEY Administration Furosemide 40 mg 06/30/18 10:00 06/30/18 10:01 Lasix IVP 40 mg DAILY SY[place] Administration Gabapentin 100 mg 06/24/18 19:15 06/30/18 17:32 Neurontin PO 100 mg BID SY[place]NEY Administration Hydralazine HCl 50 mg 06/25/18 10:00 06/30/18 10:00 Apresoline PO 50 mg DAILY SY[place]NEY Administration Piperacillin Sod/Tazobactam 100 mls @ 200 mls/hr 06/30/18 18:00 06/30/18 17:40 Sod 2.25 gm/ Sodium Chloride IVPB 200 mls/hr Q8H SYDNEY Administration Protocol Insulin Aspart 0 unit 06/24/18 22:00 06/30/18 17:31 Novolog SC 1 u ACHS SYDNEY Administration Protocol Isosorbide Mononitrate 120 mg 06/25/18 10:00 06/30/18 10:00 Imdur PO 120 mg DAILY SY[place] Administration Labetalol HCl 300 mg 06/24/18 20:15 06/30/18 17:32 Normodyne PO 300 mg BID SY[place]NEY Administration Magnesium Oxide 400 mg 06/25/18 10:00 06/30/18 17:32 Mag-Ox PO 400 mg BID SY[place]NEY Administration Pantoprazole Sodium 40 mg 06/25/18 10:00 06/30/18 10:00 Protonix Ec Tab PO 40 mg DAILY [facility] Administration Pramipexole Dihydrochloride 2 mg 06/29/18 10:43 06/29/18 22:29 Mirapex PO Not Given HS [facility] Prednisone 40 mg 06/29/18 18:00 06/30/18 10:27 Prednisone Tab PO 07/01/18 18:00 40 mg DAILY [place] Administration Prednisone 30 mg 07/02/18 10:00 Prednisone Tab PO 07/04/18 10:01 DAILY [facility] Prednisone 20 mg 07/05/18 10:00 Prednisone Tab PO 07/07/18 10:01 DAILY [facility] Prednisone 10 mg 07/08/18 10:00 Prednisone Tab PO 07/10/18 10:01 DAILY [facility] Primidone 250 mg 06/24/18 19:15 06/30/18 17:32 Mysoline PO 250 mg BID [facility] Administration Rosuvastatin Calcium 10 mg 06/24/18 22:00 06/29/18 22:28 Crestor PO Not Given HS [facility] Senna/Docusate Sodium 2 tab 06/27/18 17:45 06/30/18 17:32 Senokot S 50 Mg-8.6 Mg PO 2 tab BID [facility] Administration Tamsulosin HCl 0.8 mg 06/25/18 10:00 06/30/18 10:00 Flomax PO 0.8 mg DAILY [facility] Administration Topiramate 50 mg 06/29/18 22:00 06/29/18 22:29 Topamax PO Not Given HS [facility] - Patient Studies Lab Studies: Microbiology Studies 06/25/18 18:00 Blood Culture - Final Blood NO GROWTH AFTER 5 DAYS Gram Stain - Final TEST NOT PERFORMED 06/25/18 18:00 Blood Culture - Final Blood NO GROWTH AFTER 5 DAYS Gram Stain - Final TEST NOT PERFORMED 06/28/18 04:45 MRSA Culture (Admit) - Final Naris MRSA NOT DETECTED Lab Studies 06/30/18 06/30/18 06/30/18 Range/Units 16:05 11:02 08:05 WBC (4.8-10.8) K/uL RBC (4.40-5.90) Mil/uL Hgb (12.0-18.0) g/dL Hct (35.0-51.0) % MCV (80.0-94.0) fL MCH (27.0-31.0) pg MCHC (33.0-37.0) g/dL RDW (11.5-14.5) % Plt Count (130-400) K/uL MPV (7.2-11.7) fL Neut % (Auto) (50.0-75.0) % Lymph % (Auto) (20.0-40.0) % [place] % (Auto) (0.0-10.0) % Eos % (Auto) (0.0-4.0) % Baso % (Auto) (0.0-2.0) % Neut # (Auto) (1.8-7.0) K/uL Lymph # (Auto) (1.0-4.3) K/uL [place] # (Auto) (0.0-0.8) K/uL Eos # (Auto) (0.0-0.7) K/uL Baso # (Auto) (0.0-0.2) K/uL Neutrophils % (Manual) (50-75) % Band Neutrophils % (0-2) % Lymphocytes % (Manual) (20-40) % Monocytes % (Manual) (0-10) % Platelet Estimate (NORMAL) Macrocytosis (manual) Puncture Site pCO2 (35-45) mm/Hg pO2 (80-100) mm/Hg HCO3 (21-28) mmol/L ABG pH (7.35-7.45) ABG Total CO2 (22-28) mmol/L ABG O2 Saturation (95-98) % ABG Base Excess (-2.0-3.0) mmol/L ABG Hemoglobin (11.7-17.4) g/dL ABG Carboxyhemoglobin (0.5-1.5) % POC ABG HHb (Measured) (0.0-5.0) % ABG Methemoglobin (0.0-3.0) % Ramon Test A-a O2 Difference mm/Hg Respiratory Index Hgb O2 Saturation (95.0-98.0) % Vent Mode Mechanical Rate FiO2 % Inspiratory BiPAP Expiratory BiPAP Crit Value Called To Crit Value Called By Crit Value Read Back Blood Gas Notified Time Sodium (132-148) mmol/L Potassium (3.6-5.2) mmol/L Chloride (98-107) mmol/L Carbon Dioxide (22-30) mmol/L Anion Gap (10-20) BUN (9-20) mg/dL Creatinine (0.8-1.5) mg/dL Est GFR ( Amer) Est GFR (Non-Af Amer) POC Glucose (mg/dL) 190 H 162 H 167 H (65-110) mg/dL Random Glucose (75-110) mg/dL Calcium (8.6-10.4) mg/dl Phosphorus (2.5-4.5) mg/dL Magnesium (1.6-2.3) mg/dL Total Bilirubin (0.2-1.3) mg/dL AST (17-59) U/L ALT (21-72) U/L Alkaline Phosphatase (38-126) U/L Total Protein (6.3-8.3) g/dL Albumin (3.5-5.0) g/dL Globulin (2.2-3.9) gm/dL Albumin/Globulin Ratio (1.0-2.1) Mycoplasma pneumon IgG (<=0.90) Mycoplasma pneumon IgM (<770) U/mL 06/30/18 06/30/18 06/30/18 Range/Units 06:16 06:16 02:06 WBC 10.6 (4.8-10.8) K/uL RBC 3.75 L (4.40-5.90) Mil/uL Hgb 13.0 (12.0-18.0) g/dL Hct 39.4 (35.0-51.0) % MCV 105.2 H (80.0-94.0) fL MCH 34.8 H (27.0-31.0) pg MCHC 33.1 (33.0-37.0) g/dL RDW 14.5 (11.5-14.5) % Plt Count 131 (130-400) K/uL MPV 9.2 (7.2-11.7) fL Neut % (Auto) 87.0 H (50.0-75.0) % Lymph % (Auto) 5.5 L (20.0-40.0) % [place] % (Auto) 7.1 (0.0-10.0) % Eos % (Auto) 0.2 (0.0-4.0) % Baso % (Auto) 0.2 (0.0-2.0) % Neut # (Auto) 9.3 H (1.8-7.0) K/uL Lymph # (Auto) 0.6 L (1.0-4.3) K/uL [place] # (Auto) 0.8 (0.0-0.8) K/uL Eos # (Auto) 0.0 (0.0-0.7) K/uL Baso # (Auto) 0.0 (0.0-0.2) K/uL Neutrophils % (Manual) 82 H (50-75) % Band Neutrophils % 4 H (0-2) % Lymphocytes % (Manual) 5 L (20-40) % Monocytes % (Manual) 9 (0-10) % Platelet Estimate Normal (NORMAL) Macrocytosis (manual) Slight Puncture Site pCO2 (35-45) mm/Hg pO2 (80-100) mm/Hg HCO3 (21-28) mmol/L ABG pH (7.35-7.45) ABG Total CO2 (22-28) mmol/L ABG O2 Saturation (95-98) % ABG Base Excess (-2.0-3.0) mmol/L ABG Hemoglobin (11.7-17.4) g/dL ABG Carboxyhemoglobin (0.5-1.5) % POC ABG HHb (Measured) (0.0-5.0) % ABG Methemoglobin (0.0-3.0) % Ramon Test A-a O2 Difference mm/Hg Respiratory Index Hgb O2 Saturation (95.0-98.0) % Vent Mode Mechanical Rate FiO2 % Inspiratory BiPAP Expiratory BiPAP Crit Value Called To Crit Value Called By Crit Value Read Back Blood Gas Notified Time Sodium 140 (132-148) mmol/L Potassium 4.0 (3.6-5.2) mmol/L Chloride 92 L (98-107) mmol/L Carbon Dioxide 44 H* (22-30) mmol/L Anion Gap 8 L (10-20) BUN 79 H (9-20) mg/dL Creatinine 2.1 H (0.8-1.5) mg/dL Est GFR ( Amer) 36 Est GFR (Non-Af Amer) 30 POC Glucose (mg/dL) 163 H (65-110) mg/dL Random Glucose 153 H (75-110) mg/dL Calcium 8.3 L (8.6-10.4) mg/dl Phosphorus 4.5 (2.5-4.5) mg/dL Magnesium 3.3 H (1.6-2.3) mg/dL Total Bilirubin 0.5 (0.2-1.3) mg/dL AST 15 L D (17-59) U/L ALT 15 L D (21-72) U/L Alkaline Phosphatase 127 H (38-126) U/L Total Protein 6.4 (6.3-8.3) g/dL Albumin 3.7 (3.5-5.0) g/dL Globulin 2.7 (2.2-3.9) gm/dL Albumin/Globulin Ratio 1.3 (1.0-2.1) Mycoplasma pneumon IgG (<=0.90) Mycoplasma pneumon IgM (<770) U/mL 06/30/18 06/29/18 06/29/18 Range/Units 00:46 21:09 21:00 WBC (4.8-10.8) K/uL RBC (4.40-5.90) Mil/uL Hgb (12.0-18.0) g/dL Hct (35.0-51.0) % MCV (80.0-94.0) fL MCH (27.0-31.0) pg MCHC (33.0-37.0) g/dL RDW (11.5-14.5) % Plt Count (130-400) K/uL MPV (7.2-11.7) fL Neut % (Auto) (50.0-75.0) % Lymph % (Auto) (20.0-40.0) % [place] % (Auto) (0.0-10.0) % Eos % (Auto) (0.0-4.0) % Baso % (Auto) (0.0-2.0) % Neut # (Auto) (1.8-7.0) K/uL Lymph # (Auto) (1.0-4.3) K/uL [place] # (Auto) (0.0-0.8) K/uL Eos # (Auto) (0.0-0.7) K/uL Baso # (Auto) (0.0-0.2) K/uL Neutrophils % (Manual) (50-75) % Band Neutrophils % (0-2) % Lymphocytes % (Manual) (20-40) % Monocytes % (Manual) (0-10) % Platelet Estimate (NORMAL) Macrocytosis (manual) Puncture Site Rr Rra pCO2 117 H* 127 H* (35-45) mm/Hg pO2 63 L 72 L (80-100) mm/Hg HCO3 36.5 H 35.6 H (21-28) mmol/L ABG pH 7.22 L 7.18 L* (7.35-7.45) ABG Total CO2 51.5 H 51.3 H (22-28) mmol/L ABG O2 Saturation 94.5 L 95.6 (95-98) % ABG Base Excess 15.0 H 13.8 H (-2.0-3.0) mmol/L ABG Hemoglobin 13.1 12.9 (11.7-17.4) g/dL ABG Carboxyhemoglobin 2.1 H 1.9 H (0.5-1.5) % POC ABG HHb (Measured) 5.3 H 4.3 (0.0-5.0) % ABG Methemoglobin 1.3 1.4 (0.0-3.0) % Ramon Test Pos Pos A-a O2 Difference 147.0 197.0 mm/Hg Respiratory Index 2.3 2.7 Hgb O2 Saturation 91.2 L 92.5 L (95.0-98.0) % Vent Mode Bipap Mechanical Rate 20 FiO2 50.0 60.0 % Inspiratory BiPAP 20 18 Expiratory BiPAP 10 8 Crit Value Called To Dr wild rawls Crit Value Called By Zuleyma ayala rt Christiano sanida Crit Value Read Back Y Y Blood Gas Notified Time 110 2108 Sodium (132-148) mmol/L Potassium (3.6-5.2) mmol/L Chloride (98-107) mmol/L Carbon Dioxide (22-30) mmol/L Anion Gap (10-20) BUN (9-20) mg/dL Creatinine (0.8-1.5) mg/dL Est GFR ( Amer) Est GFR (Non-Af Amer) POC Glucose (mg/dL) 163 H (65-110) mg/dL Random Glucose (75-110) mg/dL Calcium (8.6-10.4) mg/dl Phosphorus (2.5-4.5) mg/dL Magnesium (1.6-2.3) mg/dL Total Bilirubin (0.2-1.3) mg/dL AST (17-59) U/L ALT (21-72) U/L Alkaline Phosphatase (38-126) U/L Total Protein (6.3-8.3) g/dL Albumin (3.5-5.0) g/dL Globulin (2.2-3.9) gm/dL Albumin/Globulin Ratio (1.0-2.1) Mycoplasma pneumon IgG (<=0.90) Mycoplasma pneumon IgM (<770) U/mL 06/26/18 Range/Units 05:52 WBC (4.8-10.8) K/uL RBC (4.40-5.90) Mil/uL Hgb (12.0-18.0) g/dL Hct (35.0-51.0) % MCV (80.0-94.0) fL MCH (27.0-31.0) pg MCHC (33.0-37.0) g/dL RDW (11.5-14.5) % Plt Count (130-400) K/uL MPV (7.2-11.7) fL Neut % (Auto) (50.0-75.0) % Lymph % (Auto) (20.0-40.0) % [place] % (Auto) (0.0-10.0) % Eos % (Auto) (0.0-4.0) % Baso % (Auto) (0.0-2.0) % Neut # (Auto) (1.8-7.0) K/uL Lymph # (Auto) (1.0-4.3) K/uL [place] # (Auto) (0.0-0.8) K/uL Eos # (Auto) (0.0-0.7) K/uL Baso # (Auto) (0.0-0.2) K/uL Neutrophils % (Manual) (50-75) % Band Neutrophils % (0-2) % Lymphocytes % (Manual) (20-40) % Monocytes % (Manual) (0-10) % Platelet Estimate (NORMAL) Macrocytosis (manual) Puncture Site pCO2 (35-45) mm/Hg pO2 (80-100) mm/Hg HCO3 (21-28) mmol/L ABG pH (7.35-7.45) ABG Total CO2 (22-28) mmol/L ABG O2 Saturation (95-98) % ABG Base Excess (-2.0-3.0) mmol/L ABG Hemoglobin (11.7-17.4) g/dL ABG Carboxyhemoglobin (0.5-1.5) % POC ABG HHb (Measured) (0.0-5.0) % ABG Methemoglobin (0.0-3.0) % Ramon Test A-a O2 Difference mm/Hg Respiratory Index Hgb O2 Saturation (95.0-98.0) % Vent Mode Mechanical Rate FiO2 % Inspiratory BiPAP Expiratory BiPAP Crit Value Called To Crit Value Called By Crit Value Read Back Blood Gas Notified Time Sodium (132-148) mmol/L Potassium (3.6-5.2) mmol/L Chloride (98-107) mmol/L Carbon Dioxide (22-30) mmol/L Anion Gap (10-20) BUN (9-20) mg/dL Creatinine (0.8-1.5) mg/dL Est GFR ( Amer) Est GFR (Non-Af Amer) POC Glucose (mg/dL) (65-110) mg/dL Random Glucose (75-110) mg/dL Calcium (8.6-10.4) mg/dl Phosphorus (2.5-4.5) mg/dL Magnesium (1.6-2.3) mg/dL Total Bilirubin (0.2-1.3) mg/dL AST (17-59) U/L ALT (21-72) U/L Alkaline Phosphatase (38-126) U/L Total Protein (6.3-8.3) g/dL Albumin (3.5-5.0) g/dL Globulin (2.2-3.9) gm/dL Albumin/Globulin Ratio (1.0-2.1) Mycoplasma pneumon IgG 1.81 H (<=0.90) Mycoplasma pneumon IgM 153 (<770) U/mL Laboratory Results - last 24 hr 06/26/18 06/29/18 06/29/18 05:52 21:00 21:09 WBC RBC Hgb Hct MCV MCH MCHC RDW Plt Count MPV Neut % (Auto) Lymph % (Auto) [place] % (Auto) Eos % (Auto) Baso % (Auto) Neut # (Auto) Lymph # (Auto) [place] # (Auto) Eos # (Auto) Baso # (Auto) Neutrophils % (Manual) Band Neutrophils % Lymphocytes % (Manual) Monocytes % (Manual) Platelet Estimate Macrocytosis (manual) Puncture Site Rra pCO2 127 H* pO2 72 L HCO3 35.6 H ABG pH 7.18 L* ABG Total CO2 51.3 H ABG O2 Saturation 95.6 ABG Base Excess 13.8 H ABG Hemoglobin 12.9 ABG Carboxyhemoglobin 1.9 H POC ABG HHb (Measured) 4.3 ABG Methemoglobin 1.4 Ramon Test Pos A-a O2 Difference 197.0 Respiratory Index 2.7 Hgb O2 Saturation 92.5 L Vent Mode Mechanical Rate FiO2 60.0 Inspiratory BiPAP 18 Expiratory BiPAP 8 Crit Value Called To Dr rawls Crit Value Called By Christiano soto Crit Value Read Back Y Blood Gas Notified Time 2107 Sodium Potassium Chloride Carbon Dioxide Anion Gap BUN Creatinine Est GFR ( Amer) Est GFR (Non-Af Amer) POC Glucose (mg/dL) 163 H Random Glucose Calcium Phosphorus Magnesium Total Bilirubin AST ALT Alkaline Phosphatase Total Protein Albumin Globulin Albumin/Globulin Ratio Mycoplasma pneumon IgG 1.81 H Mycoplasma pneumon IgM 153 06/30/18 06/30/18 06/30/18 00:46 02:06 06:16 WBC 10.6 RBC 3.75 L Hgb 13.0 Hct 39.4 MCV 105.2 H MCH 34.8 H MCHC 33.1 RDW 14.5 Plt Count 131 MPV 9.2 Neut % (Auto) 87.0 H Lymph % (Auto) 5.5 L [place] % (Auto) 7.1 Eos % (Auto) 0.2 Baso % (Auto) 0.2 Neut # (Auto) 9.3 H Lymph # (Auto) 0.6 L [place] # (Auto) 0.8 Eos # (Auto) 0.0 Baso # (Auto) 0.0 Neutrophils % (Manual) 82 H Band Neutrophils % 4 H Lymphocytes % (Manual) 5 L Monocytes % (Manual) 9 Platelet Estimate Normal Macrocytosis (manual) Slight Puncture Site Rr pCO2 117 H* pO2 63 L HCO3 36.5 H ABG pH 7.22 L ABG Total CO2 51.5 H ABG O2 Saturation 94.5 L ABG Base Excess 15.0 H ABG Hemoglobin 13.1 ABG Carboxyhemoglobin 2.1 H POC ABG HHb (Measured) 5.3 H ABG Methemoglobin 1.3 Ramon Test Pos A-a O2 Difference 147.0 Respiratory Index 2.3 Hgb O2 Saturation 91.2 L Vent Mode Bipap Mechanical Rate 20 FiO2 50.0 Inspiratory BiPAP 20 Expiratory BiPAP 10 Crit Value Called To Dr rome Crit Value Called By Zuleyma ayala rt Crit Value Read Back Y Blood Gas Notified Time 110 Sodium Potassium Chloride Carbon Dioxide Anion Gap BUN Creatinine Est GFR ( Amer) Est GFR (Non-Af Amer) POC Glucose (mg/dL) 163 H Random Glucose Calcium Phosphorus Magnesium Total Bilirubin AST ALT Alkaline Phosphatase Total Protein Albumin Globulin Albumin/Globulin Ratio Mycoplasma pneumon IgG Mycoplasma pneumon IgM 06/30/18 06/30/18 06/30/18 06:16 08:05 11:02 WBC RBC Hgb Hct MCV MCH MCHC RDW Plt Count MPV Neut % (Auto) Lymph % (Auto) [place] % (Auto) Eos % (Auto) Baso % (Auto) Neut # (Auto) Lymph # (Auto) [place] # (Auto) Eos # (Auto) Baso # (Auto) Neutrophils % (Manual) Band Neutrophils % Lymphocytes % (Manual) Monocytes % (Manual) Platelet Estimate Macrocytosis (manual) Puncture Site pCO2 pO2 HCO3 ABG pH ABG Total CO2 ABG O2 Saturation ABG Base Excess ABG Hemoglobin ABG Carboxyhemoglobin POC ABG HHb (Measured) ABG Methemoglobin Ramon Test A-a O2 Difference Respiratory Index Hgb O2 Saturation Vent Mode Mechanical Rate FiO2 Inspiratory BiPAP Expiratory BiPAP Crit Value Called To Crit Value Called By Crit Value Read Back Blood Gas Notified Time Sodium 140 Potassium 4.0 Chloride 92 L Carbon Dioxide 44 H* Anion Gap 8 L BUN 79 H Creatinine 2.1 H Est GFR ( Amer) 36 Est GFR (Non-Af Amer) 30 POC Glucose (mg/dL) 167 H 162 H Random Glucose 153 H Calcium 8.3 L Phosphorus 4.5 Magnesium 3.3 H Total Bilirubin 0.5 AST 15 L D ALT 15 L D Alkaline Phosphatase 127 H Total Protein 6.4 Albumin 3.7 Globulin 2.7 Albumin/Globulin Ratio 1.3 Mycoplasma pneumon IgG Mycoplasma pneumon IgM 06/30/18 16:05 WBC RBC Hgb Hct MCV MCH MCHC RDW Plt Count MPV Neut % (Auto) Lymph % (Auto) [place] % (Auto) Eos % (Auto) Baso % (Auto) Neut # (Auto) Lymph # (Auto) [place] # (Auto) Eos # (Auto) Baso # (Auto) Neutrophils % (Manual) Band Neutrophils % Lymphocytes % (Manual) Monocytes % (Manual) Platelet Estimate Macrocytosis (manual) Puncture Site pCO2 pO2 HCO3 ABG pH ABG Total CO2 ABG O2 Saturation ABG Base Excess ABG Hemoglobin ABG Carboxyhemoglobin POC ABG HHb (Measured) ABG Methemoglobin Ramon Test A-a O2 Difference Respiratory Index Hgb O2 Saturation Vent Mode Mechanical Rate FiO2 Inspiratory BiPAP Expiratory BiPAP Crit Value Called To Crit Value Called By Crit Value Read Back Blood Gas Notified Time Sodium Potassium Chloride Carbon Dioxide Anion Gap BUN Creatinine Est GFR ( Amer) Est GFR (Non-Af Amer) POC Glucose (mg/dL) 190 H Random Glucose Calcium Phosphorus Magnesium Total Bilirubin AST ALT Alkaline Phosphatase Total Protein Albumin Globulin Albumin/Globulin Ratio Mycoplasma pneumon IgG Mycoplasma pneumon IgM Radiology Impressions: Radiology Impressions Chest X-Ray 06/29/18 19:06 IMPRESSION: Interval increase in a small left pleural effusion. Interval increased left basal compressive atelectasis and/or infiltrate. Similar right hilar mass suggested. Similar superior right pleural parenchymal spiculated mass suggested. Other findings as above. Critical Care Progress Note - Nutrition Nutrition: Nutrition Category Date Time Status Pureed [Dysphagia/Modified Consistency Diet] [DIET] Diets 06/30/18 Dinner Active Assessment/Plan - Assessment and Plan (Free Text) Plan: Patient seen and examined at bedside with above resident -above resident documents my clinical managemnt -Patient remains hemodynamically stable - Date & Time Date: 06/26/18 Time: 19:00
[2018-06-27] MEDS: Albuterol-Ipratrop 3 mg / 0.5 (3 ml) UD INH SCH ×6 (00:40→19:30)
[2018-06-27] MEDS: Piperacillin/Tazobact 3.375 GM in Sodium Chloride 100 ML IVPB SCH ×3 (01:49→17:00)
[2018-06-27 06:38] LABS: BASO % 0.4 % (0.0-2.0); EOS % 0.5 % (0.0-4.0); HEMOGLOBIN 14.3 g/dL (12.0-18.0); MEAN CELL VOLUME 101.6 fL (80.0-94.0); MEAN CORPUSCULAR HEMOGLOBIN 33.8 pg (27.0-31.0); MEAN CORPUSCULAR HGB CONC 33.3 g/dL (33.0-37.0); MONO # 0.7 K/uL (0.0-0.8); MONO % 9.9 % (0.0-10.0); NEUT # 5.3 K/uL (1.8-7.0); NEUT % 75.2 % (50.0-75.0); NRBC % 0.1 % (0.0-2.0); RBC 4.24 Mil/uL (4.40-5.90); RED CELL DISTRIBUTION WIDTH 14.8 % (11.5-14.5); WHITE BLOOD COUNT 7.1 K/uL (4.8-10.8)
[2018-06-27 07:05] LABS: ALB/GLOB RATIO 1.3 (1.0-2.1); ALBUMIN 4.2 g/dL (3.5-5.0); ALT/SGPT 34 U/L (21-72); AST/SGOT 37 U/L (17-59); BLOOD UREA NITROGEN 37 mg/dL (9-20); GFR NON-AFRICAN AMERICAN 52
[2018-06-27] MEDS: Budesonide 0.5 mg/2 ml Inhal Susp UD IH SCH ×2 (07:10→19:30)
[2018-06-27] MEDS: (Novolog) Insulin Aspart, Recombinant 100 u/ml 10 ml vial SC SCH ×4 (08:30→22:22)
[2018-06-27] MEDS: MethylPREDNISolone 40 mg Vial IVP SCH ×2 (08:59→21:48)
[2018-06-27] MEDS: Magnesium Oxide 400 mg Tab UD PO SCH ×2 (09:00→17:17)
[2018-06-27] MEDS: Pantoprazole 40 mg EC Tab PO SCH (09:00)
[2018-06-27] MEDS: Labetalol Hydrochloride 300 mg Tab PO SCH ×2 (09:01→17:17)
[2018-06-27] MEDS: Cilostazol 50 mg Tab UD PO SCH ×2 (09:01→17:17)
[2018-06-27 12:50] LABS: URINE BILIRUBIN NEGATIVE (NEGATIVE); URINE BLOOD 1+ (NEGATIVE); URINE CLARITY Clear (Clear); URINE COLOR Yellow (YELLOW); URINE GLUCOSE (UA) NORMAL (Normal); URINE HYALINE CAST 0-2 /lpf (0-2); URINE LEUKOCYTE ESTERASE NEG Leu/uL (Negative); URINE PROTEIN 1+ mg/dL (NEGATIVE)
[2018-06-27] MEDS: Docusate-Senna 50 mg-8.6 mg Tab PO SCH ×2 (18:45→19:00)
--- NOTE | 2018-06-27 20:02 | CARD ---
APPROVED REPORT Date of service: 06/26/2018 EXAM: LIMITED Two-dimensional and M-mode echocardiogram with Doppler and color Doppler. Other Information Quality : TDSRhythm : Technically limited study due to body habitus. INDICATION Dyspnea RISK FACTORS Hypertension 2D DIMENSIONS IVSd1.3 (0.7-1.1cm)LVDd4.1 (3.9-5.9cm) PWd1.3 (0.7-1.1cm)LVDs3.6 (2.5-4.0cm) FS (%) 11.9 %LVEF (%)55.0 (>50%) M-Mode DIMENSIONS Left Atrium (MM)2.94 (2.5-4.0cm)IVSd1.04 (0.7-1.1cm) Aortic Root3.84 (2.2-3.7cm)LVDd5.44 (4.0-5.6cm) Aortic Cusp Exc.2.23 (1.5-2.0cm)PWd0.87 (0.7-1.1cm) FS (%) 28 %LVDs3.90 (2.0-3.8cm) LVEF (%)54 (>50%) Aortic Valve AoV Peak Vqeimqzz869.5cm/Lashawn Peak GR.19mmHgLVOT Peak Xgfawsho557.1cm/s Mitral Valve E/A ratio0.0 TDI E/Lateral E'0.0E/Medial E'0.0 LEFT VENTRICLE The left ventricle is normal size. There is mild concentric left ventricular hypertrophy. Left ventricle systolic function is normal. The Ejection Fraction is 50-55%. There is normal LV segmental wall motion. The left ventricular diastolic function is normal. Cannot rule out thrombus in left Ventricle vs artifact. RIGHT VENTRICLE There is normal right ventricular wall thickness. The right ventricular systolic function is normal. There is a linear density in the right ventricle traversing the septum which could represent an artifact versus a foreign body or pacemaker lead. Please correlate clinically. ATRIA The left atrium size is normal. The right atrium size is normal. The interatrial septum is intact with no evidence for an atrial septal defect. AORTIC VALVE The aortic valve is normal in structure. No aortic regurgitation is present. There is no aortic valvular stenosis. MITRAL VALVE The mitral valve is normal in structure. There is no evidence of mitral valve prolapse. There is no mitral valve stenosis. There is no mitral valve regurgitation noted. TRICUSPID VALVE The tricuspid valve is normal in structure. There is no tricuspid valve regurgitation noted. There is no tricuspid valve stenosis. PULMONIC VALVE The pulmonic valve is not well visualized. There is no pulmonic valvular regurgitation. GREAT VESSELS The aortic root is normal in size. PERICARDIAL EFFUSION There is nosignificant pericardial effusion. <Conclusion> Left ventricle systolic function is normal. The Ejection Fraction is 50-55%. There is mild concentric left ventricular hypertrophy. Cannot rule out thrombus in left Ventricle vs artifact. There is a linear density in the right ventricle traversing the septum which could represent an artifact versus a foreign body or pacemaker lead. Please correlate clinically. No aortic regurgitation is present. There is no mitral valve regurgitation noted. There is no tricuspid valve regurgitation noted. There is no pulmonic valvular regurgitation.
[2018-06-28] MEDS: Albuterol-Ipratrop 3 mg / 0.5 (3 ml) UD INH SCH ×6 (00:01→23:54)
[2018-06-28] MEDS: Piperacillin/Tazobact 3.375 GM in Sodium Chloride 100 ML IVPB SCH ×3 (02:16→17:32)
[2018-06-28] MEDS: (Novolog) Insulin Aspart, Recombinant 100 u/ml 10 ml vial SC SCH ×4 (08:10→22:17)
[2018-06-28 08:32] LABS: BASO % 0.1 % (0.0-2.0); EOS % 0.1 % (0.0-4.0); HEMOGLOBIN 13.9 g/dL (12.0-18.0); LYMPH # 0.7 K/uL (1.0-4.3); MEAN CELL VOLUME 102.1 fL (80.0-94.0); MEAN CORPUSCULAR HEMOGLOBIN 34.5 pg (27.0-31.0); MEAN CORPUSCULAR HGB CONC 33.8 g/dL (33.0-37.0); MONO # 0.9 K/uL (0.0-0.8); MONO % 10.3 % (0.0-10.0); NEUT # 7.2 K/uL (1.8-7.0); NEUT % 81.5 % (50.0-75.0); PLATELET COUNT 153 K/uL (130-400); RBC 4.01 Mil/uL (4.40-5.90); RED CELL DISTRIBUTION WIDTH 14.8 % (11.5-14.5); WHITE BLOOD COUNT 8.8 K/uL (4.8-10.8)
[2018-06-28 08:50] LABS: ALB/GLOB RATIO 1.3 (1.0-2.1); ALBUMIN 3.9 g/dL (3.5-5.0); CALCIUM 8.4 mg/dl (8.6-10.4)
[2018-06-28] MEDS: Budesonide 0.5 mg/2 ml Inhal Susp UD IH SCH ×2 (08:50→19:42)
[2018-06-28 09:21] LABS: EOSINOPHIL 1 % (0-4); LYMPHOCYTE 9 % (20-40); MONOCYTE 10 % (0-10); NEUTROPHIL 80 % (50-75); PLATELET ESTIMATE NORMAL (NORMAL); TOTAL CELLS COUNTED 100
[2018-06-28 09:22] LABS: ANISOCYTOSIS SLIGHT
[2018-06-28 09:23] LABS: POLYCHROMIC SLIGHT; TOXIC GRANULATION PRESENT
[2018-06-28] MEDS: Docusate-Senna 50 mg-8.6 mg Tab PO SCH ×2 (10:41→22:15)
[2018-06-28] MEDS: Cilostazol 50 mg Tab UD PO SCH ×2 (10:41→17:28)
[2018-06-28] MEDS: Labetalol Hydrochloride 300 mg Tab PO SCH ×2 (10:41→17:27)
[2018-06-28] MEDS: Pantoprazole 40 mg EC Tab PO SCH (10:43)
[2018-06-28] MEDS: Magnesium Oxide 400 mg Tab UD PO SCH ×2 (10:44→17:27)
[2018-06-28] MEDS: MethylPREDNISolone 40 mg Vial IVP SCH ×2 (10:47→22:15)
--- NOTE | 2018-06-28 20:12 | CARD ---
APPROVED REPORT Date of service: 06/24/2018 EKG Measurement Heart [id number] <Conclusion> Normal sinus rhythm Possible Left atrial enlargement Left axis deviation Right bundle branch block Left ventricular hypertrophy Anterior infarct, age undetermined Abnormal ECG
--- NOTE | 2018-06-28 21:25 | HP ---
HISTORY OF PRESENT ILLNESS: This is a 71-year-old man with history of lung cancer, COPD, admitted to the hospital with complaint of shortness of breath, weakness, fatigue, tiredness who came into the ER. The patient was on BiPAP. The patient is on Brovana, Pulmicort, home oxygen, CPAP. PHYSICAL EXAMINATION: GENERAL: The patient is awake, alert, and oriented. VITAL SIGNS: Temperature 98, pulse 90. HEENT: Within normal limits. NECK: Supple. CHEST: Symmetrical. Decreased air entry. HEART: Regular. ABDOMEN: Soft. EXTREMITIES: No edema. ASSESSMENT AND PLAN: Respiratory failure, chronic obstructive pulmonary disease, pneumonia, lung cancer. The patient is to get bedrest, supportive care, and antibiotics. Parul Baker MD
[2018-06-29] MEDS: Piperacillin/Tazobact 3.375 GM in Sodium Chloride 100 ML IVPB SCH ×3 (01:39→17:07)
[2018-06-29] MEDS: Albuterol-Ipratrop 3 mg / 0.5 (3 ml) UD INH SCH ×5 (03:24→19:33)
[2018-06-29 06:55] LABS: BASO % 0.2 % (0.0-2.0); EOS % 0.1 % (0.0-4.0); HEMOGLOBIN 13.4 g/dL (12.0-18.0); LYMPH # 0.7 K/uL (1.0-4.3); LYMPH % 6.6 % (20.0-40.0); MEAN CELL VOLUME 104.4 fL (80.0-94.0); MEAN CORPUSCULAR HEMOGLOBIN 34.3 pg (27.0-31.0); MEAN CORPUSCULAR HGB CONC 32.9 g/dL (33.0-37.0); MEAN PLATELET VOLUME 9.2 fL (7.2-11.7); MONO # 0.8 K/uL (0.0-0.8); MONO % 7.7 % (0.0-10.0); NEUT # 9.3 K/uL (1.8-7.0); NEUT % 85.4 % (50.0-75.0); NRBC % 0.1 % (0.0-2.0); PLATELET COUNT 133 K/uL (130-400); RBC 3.92 Mil/uL (4.40-5.90); RED CELL DISTRIBUTION WIDTH 14.9 % (11.5-14.5); WHITE BLOOD COUNT 10.9 K/uL (4.8-10.8)
--- NOTE | 2018-06-29 07:09 | PN ---
DATE: 06/28/2018 The patient needs IV antibiotics. Supportive care. Parul Baker MD
[2018-06-29 07:18] LABS: ALB/GLOB RATIO 1.3 (1.0-2.1); ALBUMIN 3.7 g/dL (3.5-5.0); CALCIUM 8.3 mg/dl (8.6-10.4)
[2018-06-29] MEDS: (Novolog) Insulin Aspart, Recombinant 100 u/ml 10 ml vial SC SCH ×4 (08:04→22:29)
--- NOTE | 2018-06-29 08:23 | CP.PCM.PN ---
Subjective - Date & Time of Evaluation Date of Evaluation: 06/29/18 Time of Evaluation: 09:00 - Subjective Subjective: Medicine Progress Notes for Dr. Baker: Patient was seen and examined at bedside in the AM. Patient had home health aid at bedside. Dr. Baker spoke with son on the phone on the bedside. Patient was sitting up in bed comfortably. Patient was awake and alert at bedside in the morning. Patient was evaluated again in the afternoon. Patient was not in respiratory discharge. Patient was sleeping sitting up on high flow oxygen at FiO2 70%. Objective - Vital Signs/Intake and Output Vital Signs (last 24 hours): Temp Pulse Resp BP Pulse Ox 98.2 F 93 H 20 121/64 95 06/28/18 16:21 06/28/18 22:16 06/29/18 06:19 06/28/18 22:16 06/28/18 22:16 Intake and Output: 06/29/18 06/29/18 06:59 18:59 Intake Total 350 230 Output Total 300 Balance 50 230 - Medications Medications: Current Medications Albuterol/Ipratropium (Duoneb 3 Mg/0.5 Mg (3 Ml) Ud) 3 ml INH RQ4 [facility] Last Admin: 06/29/18 03:24 Dose: 3 ml Allopurinol (Zyloprim) 100 mg PO DAILY [facility] Last Admin: 06/28/18 10:42 Dose: 100 mg Aspirin (Aspirin Chewable) 81 mg PO DAILY [facility] Last Admin: 06/28/18 10:43 Dose: 81 mg Budesonide (Pulmicort Respules) 0.5 mg IH RQ12 [facility] Last Admin: 06/28/18 19:42 Dose: 0.5 mg Carbamazepine (Tegretol-Xr) 200 mg PO DAILY [facility] Last Admin: 06/28/18 10:41 Dose: 200 mg Cilostazol (Pletal) 50 mg PO BID [facility] Last Admin: 06/28/18 17:28 Dose: 50 mg Docusate Sodium (Colace) 100 mg PO BID [facility] Last Admin: 06/28/18 17:26 Dose: 100 mg Finasteride (Proscar) 5 mg PO DAILY [facility] Last Admin: 06/28/18 10:43 Dose: 5 mg Folic Acid (Folic Acid) 1 mg PO DAILY [facility] Last Admin: 06/28/18 10:44 Dose: 1 mg Furosemide (Lasix) 40 mg IVP Q12 [facility] Last Admin: 06/28/18 22:16 Dose: 40 mg Gabapentin (Neurontin) 100 mg PO BID [facility] Last Admin: 06/28/18 17:27 Dose: 100 mg Hydralazine HCl (Apresoline) 50 mg PO DAILY [facility] Last Admin: 06/28/18 10:43 Dose: 50 mg Piperacillin Sod/Tazobactam (Sod 3.375 gm/ Sodium Chloride) 100 mls @ 200 mls/hr IVPB Q8H [facility]; Protocol Last Admin: 06/29/18 01:39 Dose: 200 mls/hr Insulin Aspart (Novolog) 0 unit SC ACHS [facility]; Protocol Last Admin: 06/29/18 08:04 Dose: 1 u Isosorbide Mononitrate (Imdur) 120 mg PO DAILY [facility] Last Admin: 06/28/18 10:43 Dose: 120 mg Labetalol HCl (Normodyne) 300 mg PO BID [facility] Last Admin: 06/28/18 17:27 Dose: 300 mg Magnesium Oxide (Mag-Ox) 400 mg PO BID [facility] Last Admin: 06/28/18 17:27 Dose: 400 mg Methylprednisolone (Solu-Medrol) 40 mg IVP Q12 [facility] Last Admin: 06/28/18 22:15 Dose: 40 mg Pantoprazole Sodium (Protonix Ec Tab) 40 mg PO DAILY [facility] Last Admin: 06/28/18 10:43 Dose: 40 mg Pramipexole Dihydrochloride (Mirapex) 1 mg PO [facility] Last Admin: 06/28/18 22:00 Dose: Not Given Primidone (Mysoline) 250 mg PO BID [facility] Last Admin: 06/28/18 17:27 Dose: 250 mg Rosuvastatin Calcium (Crestor) 10 mg PO HS [facility] Last Admin: 06/28/18 22:00 Dose: Not Given Senna/Docusate Sodium (Senokot S 50 Mg-8.6 Mg) 2 tab PO BID [facility] Last Admin: 06/28/18 22:15 Dose: 2 tab Tamsulosin HCl (Flomax) 0.8 mg PO DAILY [facility] Last Admin: 06/28/18 10:43 Dose: 0.8 mg - Labs Labs: 06/29/18 06:44 06/29/18 06:44 PT 11.5 SECONDS (9.7-12.2) 06/24/18 14:24 INR 1.1 06/24/18 14:24 APTT 41 SECONDS (21-34) H 06/24/18 14:24 - Constitutional Appears: No Acute Distress, Chronically Ill - Head Exam Head Exam: ATRAUMATIC, NORMAL INSPECTION - Eye Exam Eye Exam: EOMI, Normal appearance - Respiratory Exam Respiratory Exam: NORMAL BREATHING PATTERN - Cardiovascular Exam Cardiovascular Exam: REGULAR RHYTHM, +S1, +S2 - GI/Abdominal Exam GI & Abdominal Exam: Soft, Normal Bowel Sounds. absent: Tenderness - Extremities Exam Extremities Exam: Normal Inspection - Neurological Exam Neurological Exam: Alert, Awake - Psychiatric Exam Psychiatric exam: Normal Affect - Skin Skin Exam: Normal Color Assessment and Plan - Assessment and Plan (Free Text) Assessment: Dyspnea 2/2 COPD exacerbation; History of Lung CA s/p radiation therapy - Initial ABG showing CO2 retention; patient admitted to ICU 06/25/18 and transferred out of 06/26/18. - High flow oxygen FiO2 70% - Chest CT (06/25/18): Highly suspicious findings in both lungs and right hilar for tumor. Basilar atelectasis/infiltrates. Underlying emphysematous changes and bronchitic findings. Enlarged right adrenal gland. - Medications: * Zosyn 3.375 Q8H * Predinisone taper * Duonebs Q4H * Budesonide 0.5mg Q12H Essential tremor - Neurology Consult: Dr. Castro --> help appreciated - Patient currently takes Ropinirole 4mg po daily - per son the patient has not been taking it for 6 days. Son was concerned as patient was trembling. Spoke with Dr. Castro who stated to start Topomax 50mg HS - Mirapex 1mg PO HS Gout - Allopurinol 100mg PO daily Diabetes Type II - Metformin 500mg PO BID - hold - ISS and accuchecks Q6H Diabetic Neuropathy - Gabapentin 100mg po bid Hypertension - Labetalol 300mg PO BID - Hydralazine 50mg PO daily - Isosorbid 120mg po daily BPH - Flomax 0.4mg PO daily GI/DVT ppx: - Protonix 40mg PO daily - Heparin 5000 SC Q12H Case discussed with Dr. Samuel Arevalo PGY-2
[2018-06-29] MEDS: Budesonide 0.5 mg/2 ml Inhal Susp UD IH SCH ×2 (08:24→19:32)
[2018-06-29 08:43] LABS: BANDS 10 % (0-2); LYMPHOCYTE 8 % (20-40); MONOCYTE 4 % (0-10); NEUTROPHIL 78 % (50-75); PLATELET ESTIMATE NORMAL (NORMAL); TOTAL CELLS COUNTED 100
[2018-06-29] MEDS: Magnesium Oxide 400 mg Tab UD PO SCH ×2 (10:19→18:02)
[2018-06-29] MEDS: Cilostazol 50 mg Tab UD PO SCH ×2 (10:20→18:02)
[2018-06-29] MEDS: Labetalol Hydrochloride 300 mg Tab PO SCH ×2 (10:20→18:02)
[2018-06-29] MEDS: Docusate-Senna 50 mg-8.6 mg Tab PO SCH ×2 (10:21→18:03)
[2018-06-29] MEDS: Pantoprazole 40 mg EC Tab PO SCH (10:21)
[2018-06-29] MEDS: MethylPREDNISolone 40 mg Vial IVP SCH (10:22)
[2018-06-29 17:56] LABS: ABG ALLEN TEST POS; ARTERIAL BLOOD GAS HEMOGLOBIN 12.2 g/dL (11.7-17.4); ARTERIAL BLOOD GAS O2 SAT 93.6 % (95-98); ARTERIAL BLOOD GAS PCO2 124 mm/Hg (35-45); ARTERIAL BLOOD GAS PH 7.19 (7.35-7.45); ARTERIAL BLOOD GAS PO2 63 mm/Hg (80-100); ARTERIAL BLOOD GAS TCO2 51.2 mmol/L (22-28)
[2018-06-29] MEDS ORDERED: ROPINIROLE 2 MG PO SCH (18:00)
[2018-06-29 21:08] LABS: ABG ALLEN TEST POS; ARTERIAL BLOOD GAS HCO3 35.6 mmol/L (21-28); ARTERIAL BLOOD GAS HEMOGLOBIN 12.9 g/dL (11.7-17.4); ARTERIAL BLOOD GAS O2 SAT 95.6 % (95-98); ARTERIAL BLOOD GAS PCO2 127 mm/Hg (35-45); ARTERIAL BLOOD GAS PH 7.18 (7.35-7.45); ARTERIAL BLOOD GAS PO2 72 mm/Hg (80-100); ARTERIAL BLOOD GAS TCO2 51.3 mmol/L (22-28)
[2018-06-30] MEDS: Albuterol-Ipratrop 3 mg / 0.5 (3 ml) UD INH SCH ×6 (00:54→20:14)
[2018-06-30 01:11] LABS: ABG ALLEN TEST POS; ARTERIAL BLOOD GAS HCO3 36.5 mmol/L (21-28); ARTERIAL BLOOD GAS HEMOGLOBIN 13.1 g/dL (11.7-17.4); ARTERIAL BLOOD GAS O2 SAT 94.5 % (95-98); ARTERIAL BLOOD GAS PCO2 117 mm/Hg (35-45); ARTERIAL BLOOD GAS PH 7.22 (7.35-7.45); ARTERIAL BLOOD GAS PO2 63 mm/Hg (80-100); ARTERIAL BLOOD GAS TCO2 51.5 mmol/L (22-28)
[2018-06-30] MEDS: Piperacillin/Tazobact 3.375 GM in Sodium Chloride 100 ML IVPB SCH ×2 (01:30→09:58)
[2018-06-30 06:29] LABS: BASO % 0.2 % (0.0-2.0); EOS % 0.2 % (0.0-4.0); LYMPH # 0.6 K/uL (1.0-4.3); LYMPH % 5.5 % (20.0-40.0); MEAN CELL VOLUME 105.2 fL (80.0-94.0); MEAN CORPUSCULAR HEMOGLOBIN 34.8 pg (27.0-31.0); MEAN CORPUSCULAR HGB CONC 33.1 g/dL (33.0-37.0); MEAN PLATELET VOLUME 9.2 fL (7.2-11.7); MONO # 0.8 K/uL (0.0-0.8); MONO % 7.1 % (0.0-10.0); NEUT # 9.3 K/uL (1.8-7.0); NRBC % 0.1 % (0.0-2.0); PLATELET COUNT 131 K/uL (130-400); RBC 3.75 Mil/uL (4.40-5.90); RED CELL DISTRIBUTION WIDTH 14.5 % (11.5-14.5); WHITE BLOOD COUNT 10.6 K/uL (4.8-10.8)
[2018-06-30 07:01] LABS: ALB/GLOB RATIO 1.3 (1.0-2.1); ALBUMIN 3.7 g/dL (3.5-5.0); CALCIUM 8.3 mg/dl (8.6-10.4)
--- NOTE | 2018-06-30 08:22 | CP.PCM.CON ---
History of Present Illness - History of Present Illness History of Present Illness: Patient is 82-year-old male with history of COPD, CAD and renal insufficiency. Patient is a DNR. ICU evaluation was called in because of the respirated distance, and also for poor mentation. Patient was in ICU recently. He was placed on BiPAP at that time. But patient was transferred to the floor, following that, he was not on BiPAP as as much. This morning patient was awake and responding, as per the notes. Now patient is more lethargic. Immediately. BiPAP was placed, and he was started responding. Family at bedside. I explained to the family about the intubation as they, CO2 is increasing but family is refusing, and the family does not want him to get intubated. Past medical history COPD, hypertension, CAD. Allergies no known drug allergy. Personal history: Used to be a smoker. Review of system noted from the chart. On examination: Vital signs is stable. Except hypoxia noted. Lethargic present. Chest bilateral decreased air entry in the lung francisco noted. Regular heart sound. Abdomen tenderness, positive Edema in the legs noted. Repeat chest x-ray showing hilar mass like lesion in the right side, also right apical fibrotic changes and COPD pattern noted. Blood gas analyzes CO2 elevation noted. Assessment and recommendation: 88-year-old male with history of COPD, CAD, COPD. Home oxygen. Patient is at high risk for respite insufficiency. Will continue the BiPAP. Patient may be improving. If it is not, he may need a intubation. But patient is currently DNR. Discussed about that with the family. Any worsening called recall ICU. The repeat blood gas analyzes Past Patient History - Tetanus Immunizations Tetanus Immunization: Unknown - Past Medical History & Family History Past Medical History?: Yes - Past Social History Smoking Status: Former Smoker - CARDIAC Hx Hypertension: Yes - PULMONARY Hx Chronic Obstructive Pulmonary Disease (COPD): Yes - NEUROLOGICAL Other/Comment: "Essential Tremor - Involuntary Movement" - ENDOCRINE/METABOLIC Hx Diabetes Mellitus Type 2: Yes - MUSCULOSKELETAL/RHEUMATOLOGICAL Hx Falls: Yes - GENITOURINARY/GYNECOLOGICAL Hx Prostate Problems: Yes (BPH) - PSYCHIATRIC Hx Substance Use: No - SURGICAL HISTORY Hx Cholecystectomy: Yes - ANESTHESIA Hx Anesthesia: Yes Hx Anesthesia Reactions: Yes Hx Malignant Hyperthermia: No Has any member of the family had a problem w/ anesthesia?: No Meds Allergies/Adverse Reactions: Allergies Allergy/AdvReac Type Severity Reaction Status Date / Time No Known Allergies Allergy Verified 06/24/18 14:19 - Medications Medications: Current Medications Albuterol/Ipratropium (Duoneb 3 Mg/0.5 Mg (3 Ml) Ud) 3 ml INH RQ4 [facility] Last Admin: 06/30/18 03:57 Dose: 3 ml Allopurinol (Zyloprim) 100 mg PO DAILY [facility] Last Admin: 06/29/18 10:22 Dose: 100 mg Aspirin (Aspirin Chewable) 81 mg PO DAILY [facility] Last Admin: 06/29/18 10:17 Dose: 81 mg Budesonide (Pulmicort Respules) 0.5 mg IH RQ12 [facility] Last Admin: 06/29/18 19:32 Dose: 0.5 mg Carbamazepine (Tegretol-Xr) 200 mg PO DAILY [facility] Last Admin: 06/29/18 10:22 Dose: 200 mg Cilostazol (Pletal) 50 mg PO BID [facility] Last Admin: 06/29/18 18:02 Dose: Not Given Docusate Sodium (Colace) 100 mg PO BID [facility] Last Admin: 06/29/18 22:28 Dose: Not Given Finasteride (Proscar) 5 mg PO DAILY [facility] Last Admin: 06/29/18 10:21 Dose: 5 mg Folic Acid (Folic Acid) 1 mg PO DAILY [facility] Last Admin: 06/29/18 10:18 Dose: 1 mg Furosemide (Lasix) 40 mg IVP DAILY [facility] Gabapentin (Neurontin) 100 mg PO BID [facility] Last Admin: 06/29/18 18:02 Dose: Not Given Hydralazine HCl (Apresoline) 50 mg PO DAILY [facility] Last Admin: 06/29/18 10:17 Dose: 50 mg Piperacillin Sod/Tazobactam (Sod 3.375 gm/ Sodium Chloride) 100 mls @ 200 mls/hr IVPB Q8H [facility]; Protocol Last Admin: 06/30/18 01:30 Dose: 200 mls/hr Insulin Aspart (Novolog) 0 unit SC ACHS [facility]; Protocol Last Admin: 06/29/18 22:29 Dose: Not Given Isosorbide Mononitrate (Imdur) 120 mg PO DAILY [facility] Last Admin: 06/29/18 10:18 Dose: 120 mg Labetalol HCl (Normodyne) 300 mg PO BID [facility] Last Admin: 06/29/18 18:02 Dose: Not Given Magnesium Oxide (Mag-Ox) 400 mg PO BID [facility] Last Admin: 06/29/18 18:02 Dose: Not Given Pantoprazole Sodium (Protonix Ec Tab) 40 mg PO DAILY [facility] Last Admin: 06/29/18 10:21 Dose: 40 mg Pramipexole Dihydrochloride (Mirapex) 2 mg PO [facility] Last Admin: 06/29/18 22:29 Dose: Not Given Prednisone (Prednisone Tab) 40 mg PO DAILY [facility] Stop: 07/01/18 18:00 Last Admin: 06/29/18 18:03 Dose: Not Given Prednisone (Prednisone Tab) 30 mg PO DAILY [facility] Stop: 07/04/18 10:01 Prednisone (Prednisone Tab) 20 mg PO DAILY [facility] Stop: 07/07/18 10:01 Prednisone (Prednisone Tab) 10 mg PO DAILY [facility] Stop: 07/10/18 10:01 Primidone (Mysoline) 250 mg PO BID [facility] Last Admin: 06/29/18 18:02 Dose: Not Given Rosuvastatin Calcium (Crestor) 10 mg PO [facility] Last Admin: 06/29/18 22:28 Dose: Not Given Senna/Docusate Sodium (Senokot S 50 Mg-8.6 Mg) 2 tab PO BID [facility] Last Admin: 06/29/18 18:03 Dose: Not Given Tamsulosin HCl (Flomax) 0.8 mg PO DAILY [facility] Last Admin: 06/29/18 10:18 Dose: 0.8 mg Topiramate (Topamax) 50 mg PO [facility] Last Admin: 06/29/18 22:29 Dose: Not Given Results - Vital Signs Recent Vital Signs: Last Vital Signs Temp 97.7 F 06/30/18 08:01 Pulse 90 06/30/18 08:01 Resp 20 06/30/18 08:01 BP 142/75 06/30/18 08:01 Pulse Ox 97 06/30/18 08:01 - Labs Result Diagrams: 06/30/18 06:16 06/30/18 06:16 Labs: Laboratory Results - last 24 hr 06/29/18 06/29/18 06/29/18 06:44 06:44 11:30 WBC RBC Hgb Hct MCV MCH MCHC RDW Plt Count MPV Neut % (Auto) Lymph % (Auto) [place] % (Auto) Eos % (Auto) Baso % (Auto) Neut # (Auto) Lymph # (Auto) [place] # (Auto) Eos # (Auto) Baso # (Auto) Neutrophils % (Manual) 78 H Band Neutrophils % 10 H Lymphocytes % (Manual) 8 L Monocytes % (Manual) 4 Platelet Estimate Normal Puncture Site pCO2 pO2 HCO3 ABG pH ABG Total CO2 ABG O2 Saturation ABG Base Excess ABG Hemoglobin ABG Carboxyhemoglobin POC ABG HHb (Measured) ABG Methemoglobin Ramon Test A-a O2 Difference Respiratory Index Hgb O2 Saturation Vent Mode Mechanical Rate FiO2 Inspiratory BiPAP Expiratory BiPAP Crit Value Called To Crit Value Called By Crit Value Read Back Blood Gas Notified Time Sodium Potassium Chloride Carbon Dioxide 40 H* Anion Gap 12 BUN Creatinine Est GFR ( Amer) Est GFR (Non-Af Amer) POC Glucose (mg/dL) 199 H Random Glucose Calcium Phosphorus Magnesium Total Bilirubin AST ALT Alkaline Phosphatase Total Protein Albumin Globulin Albumin/Globulin Ratio 06/29/18 06/29/18 06/29/18 16:01 17:50 21:00 WBC RBC Hgb Hct MCV MCH MCHC RDW Plt Count MPV Neut % (Auto) Lymph % (Auto) [place] % (Auto) Eos % (Auto) Baso % (Auto) Neut # (Auto) Lymph # (Auto) [place] # (Auto) Eos # (Auto) Baso # (Auto) Neutrophils % (Manual) Band Neutrophils % Lymphocytes % (Manual) Monocytes % (Manual) Platelet Estimate Puncture Site Rra Rra pCO2 124 H* 127 H* pO2 63 L 72 L HCO3 36.0 H 35.6 H ABG pH 7.19 L* 7.18 L* ABG Total CO2 51.2 H 51.3 H ABG O2 Saturation 93.6 L 95.6 ABG Base Excess 14.4 H 13.8 H ABG Hemoglobin 12.2 12.9 ABG Carboxyhemoglobin 1.8 H 1.9 H POC ABG HHb (Measured) 6.2 H 4.3 ABG Methemoglobin 1.4 1.4 Ramon Test Pos Pos A-a O2 Difference 281.0 197.0 Respiratory Index 4.5 2.7 Hgb O2 Saturation 90.5 L 92.5 L Vent Mode Mechanical Rate FiO2 70.0 60.0 Inspiratory BiPAP 18 Expiratory BiPAP 8 Crit Value Called To Dr curly rawls Crit Value Called By Christiano sanidad Christiano sanida Crit Value Read Back Y Y Blood Gas Notified Time 1758 Sodium Potassium Chloride Carbon Dioxide Anion Gap BUN Creatinine Est GFR ( Amer) Est GFR (Non-Af Amer) POC Glucose (mg/dL) 190 H Random Glucose Calcium Phosphorus Magnesium Total Bilirubin AST ALT Alkaline Phosphatase Total Protein Albumin Globulin Albumin/Globulin Ratio 06/29/18 06/30/18 06/30/18 21:09 00:46 02:06 WBC RBC Hgb Hct MCV MCH MCHC RDW Plt Count MPV Neut % (Auto) Lymph % (Auto) [place] % (Auto) Eos % (Auto) Baso % (Auto) Neut # (Auto) Lymph # (Auto) [place] # (Auto) Eos # (Auto) Baso # (Auto) Neutrophils % (Manual) Band Neutrophils % Lymphocytes % (Manual) Monocytes % (Manual) Platelet Estimate Puncture Site Rr pCO2 117 H* pO2 63 L HCO3 36.5 H ABG pH 7.22 L ABG Total CO2 51.5 H ABG O2 Saturation 94.5 L ABG Base Excess 15.0 H ABG Hemoglobin 13.1 ABG Carboxyhemoglobin 2.1 H POC ABG HHb (Measured) 5.3 H ABG Methemoglobin 1.3 Ramon Test Pos A-a O2 Difference 147.0 Respiratory Index 2.3 Hgb O2 Saturation 91.2 L Vent Mode Bipap Mechanical Rate 20 FiO2 50.0 Inspiratory BiPAP 20 Expiratory BiPAP 10 Crit Value Called To Dr rome Crit Value Called By Zuleyma ayala rt Crit Value Read Back Y Blood Gas Notified Time 110 Sodium Potassium Chloride Carbon Dioxide Anion Gap BUN Creatinine Est GFR ( Amer) Est GFR (Non-Af Amer) POC Glucose (mg/dL) 163 H 163 H Random Glucose Calcium Phosphorus Magnesium Total Bilirubin AST ALT Alkaline Phosphatase Total Protein Albumin Globulin Albumin/Globulin Ratio 06/30/18 06/30/18 06/30/18 06:16 06:16 08:05 WBC 10.6 RBC 3.75 L Hgb 13.0 Hct 39.4 MCV 105.2 H MCH 34.8 H MCHC 33.1 RDW 14.5 Plt Count 131 MPV 9.2 Neut % (Auto) 87.0 H Lymph % (Auto) 5.5 L [place] % (Auto) 7.1 Eos % (Auto) 0.2 Baso % (Auto) 0.2 Neut # (Auto) 9.3 H Lymph # (Auto) 0.6 L [place] # (Auto) 0.8 Eos # (Auto) 0.0 Baso # (Auto) 0.0 Neutrophils % (Manual) Band Neutrophils % Lymphocytes % (Manual) Monocytes % (Manual) Platelet Estimate Puncture Site pCO2 pO2 HCO3 ABG pH ABG Total CO2 ABG O2 Saturation ABG Base Excess ABG Hemoglobin ABG Carboxyhemoglobin POC ABG HHb (Measured) ABG Methemoglobin Ramon Test A-a O2 Difference Respiratory Index Hgb O2 Saturation Vent Mode Mechanical Rate FiO2 Inspiratory BiPAP Expiratory BiPAP Crit Value Called To Crit Value Called By Crit Value Read Back Blood Gas Notified Time Sodium 140 Potassium 4.0 Chloride 92 L Carbon Dioxide 44 H* Anion Gap 8 L BUN 79 H Creatinine 2.1 H Est GFR ( Amer) 36 Est GFR (Non-Af Amer) 30 POC Glucose (mg/dL) 167 H Random Glucose 153 H Calcium 8.3 L Phosphorus 4.5 Magnesium 3.3 H Total Bilirubin 0.5 AST 15 L D ALT 15 L D Alkaline Phosphatase 127 H Total Protein 6.4 Albumin 3.7 Globulin 2.7 Albumin/Globulin Ratio 1.3
[2018-06-30] MEDS: (Novolog) Insulin Aspart, Recombinant 100 u/ml 10 ml vial SC SCH ×4 (08:24→21:18)
[2018-06-30 08:40] LABS: BANDS 4 % (0-2); LYMPHOCYTE 5 % (20-40); MONOCYTE 9 % (0-10); NEUTROPHIL 82 % (50-75); PLATELET ESTIMATE NORMAL (NORMAL); TOTAL CELLS COUNTED 100
[2018-06-30] MEDS: Budesonide 0.5 mg/2 ml Inhal Susp UD IH SCH ×2 (09:09→20:14)
[2018-06-30] MEDS: Pantoprazole 40 mg EC Tab PO SCH (10:00)
[2018-06-30] MEDS: Magnesium Oxide 400 mg Tab UD PO SCH ×2 (10:01→17:32)
[2018-06-30] MEDS: Labetalol Hydrochloride 300 mg Tab PO SCH ×2 (10:06→17:32)
[2018-06-30] MEDS: Docusate-Senna 50 mg-8.6 mg Tab PO SCH ×2 (10:06→17:32)
--- NOTE | 2018-06-30 10:15 | RAD ---
Date of service: 06/29/2018 HISTORY: sob COMPARISON: 06/25/2018 chest x-ray. Chest without contrast 06/25/2018 TECHNIQUE: 1 view obtained. FINDINGS: LUNGS: The prior right hilar prominence is compatible with a CT referenced right perihilar mass inseparable from the right pulmonary artery. The CT referenced right lower lobe pulmonary nodules difficult to appreciate definitively. Right infrahilar vague nodular opacity perceived. The right upper lobe peripheral pleural-based mass with irregular margins is compatible with the CT referenced spiculated irregular mass here. Interval increased perceived left basal opacity-interval small left increasing pleural effusion. Interval increasing left basal consolidation with or without infiltrate are considerations. Background mid and upper lung zone hyperlucent emphysematous like changes PLEURA: No interval pneumothorax. Interval increase in left pleural effusion still small CARDIOVASCULAR: There is presence of aortic atherosclerotic calcification on x-ray. Cardiomegaly pulmonary venous congestion suspect. OSSEOUS STRUCTURES: Thoracic spondylosis. Partially visualized metallic hardware over proximal right humerus. The partially visualize right humeral head appears abnormal as before. VISUALIZED UPPER ABDOMEN: Partially visualized abdominal aortic vascular is stent graft OTHER FINDINGS: None. IMPRESSION: Interval increase in a small left pleural effusion. Interval increased left basal compressive atelectasis and/or infiltrate. Similar right hilar mass suggested. Similar superior right pleural parenchymal spiculated mass suggested. Other findings as above.
[2018-06-30] MEDS: Cilostazol 50 mg Tab UD PO SCH ×2 (10:18→17:32)
--- NOTE | 2018-06-30 14:47 | CP.PCM.PN ---
Subjective - Date & Time of Evaluation Date of Evaluation: 06/30/18 Time of Evaluation: 09:50 - Subjective Subjective: Medicine note ( Dr. Baker 's service) Patient was seen and examined at bedside, while he was on BiPAP. Patient was more alert and awake this morning. Patient denies any discomfort and admits that he feels a bit better and doing well on BiPAP. Post round, patient's son was around and requested that his father be transferred to [facility] as his [employer] Maker and primary are requesting such. I spoke to patient's gut sorter, who had gave instruction regarding the transfer. Transfer was initiated but unsuccessful due to many logistics. Objective - Vital Signs/Intake and Output Vital Signs (last 24 hours): Temp Pulse Resp BP Pulse Ox 97.7 F 89 20 146/70 97 06/30/18 08:01 06/30/18 09:14 06/30/18 08:01 06/30/18 10:01 06/30/18 08:01 Intake and Output: 06/30/18 06/30/18 06:59 18:59 Intake Total 200 200 Output Total 701 850 Balance -501 -650 - Medications Medications: Current Medications Albuterol/Ipratropium (Duoneb 3 Mg/0.5 Mg (3 Ml) Ud) 3 ml INH RQ4 [facility] Last Admin: 06/30/18 09:10 Dose: 3 ml Allopurinol (Zyloprim) 100 mg PO DAILY [facility] Last Admin: 06/30/18 10:00 Dose: 100 mg Aspirin (Aspirin Chewable) 81 mg PO DAILY [facility] Last Admin: 06/30/18 10:01 Dose: 81 mg Budesonide (Pulmicort Respules) 0.5 mg IH RQ12 [facility] Last Admin: 06/30/18 09:09 Dose: 0.5 mg Carbamazepine (Tegretol-Xr) 200 mg PO DAILY [facility] Last Admin: 06/30/18 10:06 Dose: 200 mg Cilostazol (Pletal) 50 mg PO BID [facility] Last Admin: 06/30/18 10:18 Dose: 50 mg Docusate Sodium (Colace) 100 mg PO BID [facility] Last Admin: 06/30/18 10:01 Dose: 100 mg Finasteride (Proscar) 5 mg PO DAILY [facility] Last Admin: 06/30/18 10:00 Dose: 5 mg Folic Acid (Folic Acid) 1 mg PO DAILY [facility] Last Admin: 06/30/18 10:01 Dose: 1 mg Furosemide (Lasix) 40 mg IVP DAILY [facility] Last Admin: 06/30/18 10:01 Dose: 40 mg Gabapentin (Neurontin) 100 mg PO BID [facility] Last Admin: 06/30/18 10:01 Dose: 100 mg Hydralazine HCl (Apresoline) 50 mg PO DAILY [facility] Last Admin: 06/30/18 10:00 Dose: 50 mg Piperacillin Sod/Tazobactam (Sod 2.25 gm/ Sodium Chloride) 100 mls @ 200 mls/hr IVPB Q8H [facility]; Protocol Insulin Aspart (Novolog) 0 unit SC ACHS [facility]; Protocol Last Admin: 06/30/18 11:34 Dose: 1 u Isosorbide Mononitrate (Imdur) 120 mg PO DAILY [facility] Last Admin: 06/30/18 10:00 Dose: 120 mg Labetalol HCl (Normodyne) 300 mg PO BID [facility] Last Admin: 06/30/18 10:06 Dose: 300 mg Magnesium Oxide (Mag-Ox) 400 mg PO BID [facility] Last Admin: 06/30/18 10:01 Dose: 400 mg Pantoprazole Sodium (Protonix Ec Tab) 40 mg PO DAILY [facility] Last Admin: 06/30/18 10:00 Dose: 40 mg Pramipexole Dihydrochloride (Mirapex) 2 mg PO HS [facility] Last Admin: 06/29/18 22:29 Dose: Not Given Prednisone (Prednisone Tab) 40 mg PO DAILY [facility] Stop: 07/01/18 18:00 Last Admin: 06/30/18 10:27 Dose: 40 mg Prednisone (Prednisone Tab) 30 mg PO DAILY [facility] Stop: 07/04/18 10:01 Prednisone (Prednisone Tab) 20 mg PO DAILY [facility] Stop: 07/07/18 10:01 Prednisone (Prednisone Tab) 10 mg PO DAILY [facility] Stop: 07/10/18 10:01 Primidone (Mysoline) 250 mg PO BID [facility] Last Admin: 06/30/18 10:05 Dose: 250 mg Rosuvastatin Calcium (Crestor) 10 mg PO HS [facility] Last Admin: 06/29/18 22:28 Dose: Not Given Senna/Docusate Sodium (Senokot S 50 Mg-8.6 Mg) 2 tab PO BID [facility] Last Admin: 06/30/18 10:06 Dose: 2 tab Tamsulosin HCl (Flomax) 0.8 mg PO DAILY [facility] Last Admin: 06/30/18 10:00 Dose: 0.8 mg Topiramate (Topamax) 50 mg PO HS [facility] Last Admin: 06/29/18 22:29 Dose: Not Given - Labs Labs: 06/30/18 06:16 06/30/18 06:16 PT 11.5 SECONDS (9.7-12.2) 06/24/18 14:24 INR 1.1 06/24/18 14:24 APTT 41 SECONDS (21-34) H 06/24/18 14:24 - Constitutional Appears: Well, No Acute Distress - Head Exam Head Exam: ATRAUMATIC - Eye Exam Eye Exam: EOMI - Respiratory Exam Respiratory Exam: NORMAL BREATHING PATTERN Additional comments: on BiPAP - Cardiovascular Exam Cardiovascular Exam: REGULAR RHYTHM, +S1, +S2. absent: Murmur - GI/Abdominal Exam GI & Abdominal Exam: Soft, Normal Bowel Sounds - Neurological Exam Neurological Exam: Alert, Awake - Psychiatric Exam Psychiatric exam: Anxious - Skin Skin Exam: Normal Color Assessment and Plan (1) Hypercapnemia Assessment & Plan: 2/2 COPD exacerbation; Hx of lung CA s/p radiation therapy Initial ABG showing CO2 retention; patient admitted to ICU 06/25/18 and transferred out of 06/26/18. - On BiPAP - Chest CT (06/25/18): Highly suspicious findings in both lungs and right hilar for tumor. Basilar atelectasis/infiltrates. Underlying emphysematous changes and bronchitic findings. Enlarged right adrenal gland. - Medications: * Zosyn 2.25gm Q8H, renal dose * Predinisone taper * Duonebs Q4H * Budesonide 0.5mg Q12H Status: Acute (2) Oxygen desaturation Assessment & Plan: 2/2 COPD exacerbation; Hx of lung CA s/p radiation therapy ICU consult Currently, on BiPAP Status: Acute (3) Essential tremor Assessment & Plan: - Neurology Consult: Dr. Castro --> help appreciated - Patient currently takes Ropinirole 4mg po daily - per son the patient has not been taking it for 6 days. Son was concerned as patient was trembling. Spoke with Dr. Castro who stated to start Topomax 50mg HS - Mirapex 1mg PO HS Status: Acute (4) Gout Assessment & Plan: - Allopurinol 100mg PO daily Status: Acute (5) Diabetes mellitus Assessment & Plan: HgbA1C (06/25/18): 6.6 Accuchecks ISS- Low dose Status: Acute (6) Diabetic neuropathy Assessment & Plan: - Gabapentin 100mg PO bid Status: Acute (7) Hypertension Assessment & Plan: - Labetalol 300mg PO BID - Hydralazine 50mg PO daily - Isosorbid 120mg po daily Status: Acute (8) BPH (benign prostatic hyperplasia) Assessment & Plan: - Flomax 0.4mg PO daily - Finasteride 5mg PO daily Status: Acute (9) Constipation Assessment & Plan: Sennokot S 50Mg-8.6Mg 2 tab PO BID Colace 100mg PO BID Status: Acute (10) Prophylactic measure Assessment & Plan: - GI: Protonix 40mg PO daily - Heparin 5000 units SC Q12H All plans and management discussed with Dr. Samuel Mei DO, PGY-2 Status: Acute
[2018-06-30] MEDS: Piperacillin/Tazobact 2.25 GM in Sodium Chloride 100 ML IVPB SCH (17:40)
[2018-07-01] MEDS: Albuterol-Ipratrop 3 mg / 0.5 (3 ml) UD INH SCH ×6 (00:14→19:12)
[2018-07-01] MEDS: Piperacillin/Tazobact 2.25 GM in Sodium Chloride 100 ML IVPB SCH ×3 (01:00→20:43)
[2018-07-01 04:37] LABS: ABG ALLEN TEST PS; ARTERIAL BLOOD GAS HCO3 31.4 mmol/L (21-28); ARTERIAL BLOOD GAS HEMOGLOBIN 11.1 g/dL (11.7-17.4); ARTERIAL BLOOD GAS O2 SAT 97.7 % (95-98); ARTERIAL BLOOD GAS PCO2 69 mm/Hg (35-45); ARTERIAL BLOOD GAS PH 7.33 (7.35-7.45); ARTERIAL BLOOD GAS PO2 84 mm/Hg (80-100); ARTERIAL BLOOD GAS TCO2 38.5 mmol/L (22-28)
[2018-07-01 07:40] LABS: BASO % 0.1 % (0.0-2.0); EOS % 0.1 % (0.0-4.0); HEMOGLOBIN 12.9 g/dL (12.0-18.0); LYMPH # 0.8 K/uL (1.0-4.3); LYMPH % 5.5 % (20.0-40.0); MEAN CELL VOLUME 104.1 fL (80.0-94.0); MEAN CORPUSCULAR HEMOGLOBIN 33.8 pg (27.0-31.0); MEAN CORPUSCULAR HGB CONC 32.5 g/dL (33.0-37.0); MEAN PLATELET VOLUME 9.3 fL (7.2-11.7); MONO # 0.8 K/uL (0.0-0.8); MONO % 5.6 % (0.0-10.0); NEUT # 12.4 K/uL (1.8-7.0); NEUT % 88.7 % (50.0-75.0); NRBC % 0.1 % (0.0-2.0); PLATELET COUNT 150 K/uL (130-400); RBC 3.82 Mil/uL (4.40-5.90); RED CELL DISTRIBUTION WIDTH 14.5 % (11.5-14.5); WHITE BLOOD COUNT 13.9 K/uL (4.8-10.8)
[2018-07-01 08:00] LABS: ALB/GLOB RATIO 1.3 (1.0-2.1); ALBUMIN 3.5 g/dL (3.5-5.0)
[2018-07-01 08:20] LABS: CALCIUM 8.6 mg/dl (8.6-10.4)
[2018-07-01] MEDS: Budesonide 0.5 mg/2 ml Inhal Susp UD IH SCH ×2 (08:27→19:12)
[2018-07-01] MEDS: (Novolog) Insulin Aspart, Recombinant 100 u/ml 10 ml vial SC SCH ×4 (08:31→21:15)
[2018-07-01 08:49] LABS: BANDS 2 % (0-2); EOSINOPHIL 1 % (0-4); LYMPHOCYTE 2 % (20-40); MONOCYTE 4 % (0-10); NEUTROPHIL 90 % (50-75); PLATELET ESTIMATE NORMAL (NORMAL); REACTIVE LYMPHOCYTES 1 % (0-0); TOTAL CELLS COUNTED 100
--- NOTE | 2018-07-01 09:42 | CP.PCM.PN ---
Subjective - Date & Time of Evaluation Date of Evaluation: 07/01/18 Time of Evaluation: 08:00 - Subjective Subjective: Medicine note for Dr. Baker 's service Patient was seen and examined at bedside. Patient continues to be on BiPAP. Patient was alert and awake this morning. Patient denies any discomfort or pain.. Objective - Vital Signs/Intake and Output Vital Signs (last 24 hours): Temp Pulse Resp BP Pulse Ox 98.0 F 99 H 20 144/70 94 L 07/01/18 08:00 07/01/18 08:39 07/01/18 08:00 07/01/18 08:00 07/01/18 08:00 Intake and Output: 07/01/18 07/01/18 06:59 18:59 Intake Total 450 Output Total 800 Balance -350 - Medications Medications: Current Medications Albuterol/Ipratropium (Duoneb 3 Mg/0.5 Mg (3 Ml) Ud) 3 ml INH RQ4 [facility] Last Admin: 07/01/18 03:57 Dose: 3 ml Allopurinol (Zyloprim) 100 mg PO DAILY [facility] Last Admin: 06/30/18 10:00 Dose: 100 mg Aspirin (Aspirin Chewable) 81 mg PO DAILY [facility] Last Admin: 06/30/18 10:01 Dose: 81 mg Budesonide (Pulmicort Respules) 0.5 mg IH RQ12 [facility] Last Admin: 06/30/18 20:14 Dose: 0.5 mg Carbamazepine (Tegretol-Xr) 200 mg PO DAILY [facility] Last Admin: 06/30/18 10:06 Dose: 200 mg Cilostazol (Pletal) 50 mg PO BID [facility] Last Admin: 06/30/18 17:32 Dose: 50 mg Docusate Sodium (Colace) 100 mg PO BID [facility] Last Admin: 06/30/18 17:32 Dose: 100 mg Finasteride (Proscar) 5 mg PO DAILY [facility] Last Admin: 06/30/18 10:00 Dose: 5 mg Folic Acid (Folic Acid) 1 mg PO DAILY [facility] Last Admin: 06/30/18 10:01 Dose: 1 mg Furosemide (Lasix) 40 mg IVP DAILY [facility] Last Admin: 06/30/18 10:01 Dose: 40 mg Gabapentin (Neurontin) 100 mg PO BID [facility] Last Admin: 06/30/18 17:32 Dose: 100 mg Hydralazine HCl (Apresoline) 50 mg PO DAILY [facility] Last Admin: 06/30/18 10:00 Dose: 50 mg Piperacillin Sod/Tazobactam (Sod 2.25 gm/ Sodium Chloride) 100 mls @ 200 mls/hr IVPB Q8H [facility]; Protocol Last Admin: 07/01/18 01:00 Dose: 200 mls/hr Insulin Aspart (Novolog) 0 unit SC ACHS [facility]; Protocol Last Admin: 07/01/18 08:31 Dose: 1 u Isosorbide Mononitrate (Imdur) 120 mg PO DAILY [facility] Last Admin: 06/30/18 10:00 Dose: 120 mg Labetalol HCl (Normodyne) 300 mg PO BID [facility] Last Admin: 06/30/18 17:32 Dose: 300 mg Magnesium Oxide (Mag-Ox) 400 mg PO BID [facility] Last Admin: 06/30/18 17:32 Dose: 400 mg Pantoprazole Sodium (Protonix Ec Tab) 40 mg PO DAILY [facility] Last Admin: 06/30/18 10:00 Dose: 40 mg Pramipexole Dihydrochloride (Mirapex) 2 mg PO [facility] Last Admin: 06/30/18 21:26 Dose: 2 mg Prednisone (Prednisone Tab) 40 mg PO DAILY [facility] Stop: 07/01/18 18:00 Last Admin: 06/30/18 10:27 Dose: 40 mg Prednisone (Prednisone Tab) 30 mg PO DAILY [facility] Stop: 07/04/18 10:01 Prednisone (Prednisone Tab) 20 mg PO DAILY [facility] Stop: 07/07/18 10:01 Prednisone (Prednisone Tab) 10 mg PO DAILY [facility] Stop: 07/10/18 10:01 Primidone (Mysoline) 250 mg PO BID [facility] Last Admin: 06/30/18 17:32 Dose: 250 mg Rosuvastatin Calcium (Crestor) 10 mg PO [facility] Last Admin: 06/30/18 21:26 Dose: 10 mg Senna/Docusate Sodium (Senokot S 50 Mg-8.6 Mg) 2 tab PO BID [facility] Last Admin: 06/30/18 17:32 Dose: 2 tab Tamsulosin HCl (Flomax) 0.8 mg PO DAILY [facility] Last Admin: 06/30/18 10:00 Dose: 0.8 mg Topiramate (Topamax) 50 mg PO [facility] Last Admin: 06/30/18 21:26 Dose: 50 mg - Labs Labs: 07/01/18 07:32 07/01/18 07:32 PT 11.5 SECONDS (9.7-12.2) 06/24/18 14:24 INR 1.1 06/24/18 14:24 APTT 41 SECONDS (21-34) H 06/24/18 14:24 - Constitutional Appears: No Acute Distress, Chronically Ill - Head Exam Head Exam: ATRAUMATIC, NORMAL INSPECTION - Eye Exam Eye Exam: EOMI, Normal appearance - ENT Exam ENT Exam: Mucous Membranes Moist - Respiratory Exam Respiratory Exam: NORMAL BREATHING PATTERN - Cardiovascular Exam Cardiovascular Exam: REGULAR RHYTHM, +S1, +S2 - GI/Abdominal Exam GI & Abdominal Exam: Soft, Normal Bowel Sounds. absent: Tenderness - Extremities Exam Extremities Exam: Normal Inspection - Neurological Exam Neurological Exam: Alert, Awake - Psychiatric Exam Psychiatric exam: Normal Affect Assessment and Plan - Assessment and Plan (Free Text) Assessment: Hypercapnemia 2/2 COPD exacerbation; Hx of lung CA s/p radiation therapy Initial ABG showing CO2 retention; patient admitted to ICU 06/25/18 and transferred out of 06/26/18. - On BiPAP - Chest CT (06/25/18): Highly suspicious findings in both lungs and right hilar for tumor. Basilar atelectasis/infiltrates. Underlying emphysematous changes and bronchitic findings. Enlarged right adrenal gland. - Medications: * Zosyn 2.25gm Q8H, renal dose * Predinisone taper * Duonebs Q4H * Budesonide 0.5mg Q12H Oxygen desaturation 2/2 COPD exacerbation; Hx of lung CA s/p radiation therapy ICU consult Currently, on BiPAP ABG improving: CO2:69; O2 84; HCO3 31.4; pH 7.33 Essential tremor - Neurology Consult: Dr. Castro --> help appreciated - Patient currently takes Ropinirole 4mg po daily - per son the patient has not been taking it for 6 days. Son was concerned as patient was trembling. Spoke with Dr. Castro who stated to start Topomax 50mg HS - Mirapex 1mg PO HS Gout - Allopurinol 100mg PO daily Diabetes mellitus HgbA1C (06/25/18): 6.6 Accuchecks ISS- Low dose Diabetic neuropathy - Gabapentin 100mg PO bid Hypertension - Labetalol 300mg PO BID - Hydralazine 50mg PO daily - Isosorbid 120mg po daily BPH (benign prostatic hyperplasia) - Flomax 0.4mg PO daily - Finasteride 5mg PO daily Constipation Sennokot S 50Mg-8.6Mg 2 tab PO BID Colace 100mg PO BID Prophylactic measure - GI: Protonix 40mg PO daily - Heparin 5000 units SC Q12H - Spoke with palliative care, Janet to re-evaluate POLST form and patient's wishes. - Discharge planning: when medically cleared patient to be discharged to a rehab facility. All plans and management discussed with Dr. Samuel Arevalo PGY-2
[2018-07-01] MEDS: Magnesium Oxide 400 mg Tab UD PO SCH ×2 (10:57→18:02)
[2018-07-01] MEDS: Labetalol Hydrochloride 300 mg Tab PO SCH ×2 (10:58→18:01)
[2018-07-01] MEDS: Docusate-Senna 50 mg-8.6 mg Tab PO SCH ×2 (10:58→18:03)
[2018-07-01] MEDS: Cilostazol 50 mg Tab UD PO SCH ×2 (10:58→18:02)
[2018-07-01] MEDS: Pantoprazole 40 mg EC Tab PO SCH (11:03)
[2018-07-01 12:53] LABS: ABG ALLEN TEST POS; ARTERIAL BLOOD GAS HCO3 38.3 mmol/L (21-28); ARTERIAL BLOOD GAS HEMOGLOBIN 13.6 g/dL (11.7-17.4); ARTERIAL BLOOD GAS O2 SAT 95.9 % (95-98); ARTERIAL BLOOD GAS PCO2 94 mm/Hg (35-45); ARTERIAL BLOOD GAS PH 7.32 (7.35-7.45); ARTERIAL BLOOD GAS PO2 71 mm/Hg (80-100); ARTERIAL BLOOD GAS TCO2 51.3 mmol/L (22-28)
[2018-07-01] MEDS ORDERED: Potassium Chloride 20 mEq ER Tab PO ONE (17:07)
[2018-07-01 17:48] LABS: ABG ALLEN TEST UNABLE; ARTERIAL BLOOD GAS HCO3 33.8 mmol/L (21-28); ARTERIAL BLOOD GAS O2 SAT 98.3 % (95-98); ARTERIAL BLOOD GAS PCO2 73 mm/Hg (35-45); ARTERIAL BLOOD GAS PH 7.35 (7.35-7.45); ARTERIAL BLOOD GAS PO2 89 mm/Hg (80-100); ARTERIAL BLOOD GAS TCO2 42.5 mmol/L (22-28)
[2018-07-02] MEDS: Albuterol-Ipratrop 3 mg / 0.5 (3 ml) UD INH SCH ×6 (01:03→20:26)
[2018-07-02] MEDS: Piperacillin/Tazobact 2.25 GM in Sodium Chloride 100 ML IVPB SCH ×2 (02:30→11:00)
[2018-07-02 04:13] LABS: ABG ALLEN TEST POS; ARTERIAL BLOOD GAS HCO3 40.3 mmol/L (21-28); ARTERIAL BLOOD GAS HEMOGLOBIN 12.6 g/dL (11.7-17.4); ARTERIAL BLOOD GAS O2 SAT 95.9 % (95-98); ARTERIAL BLOOD GAS PCO2 79 mm/Hg (35-45); ARTERIAL BLOOD GAS PO2 62 mm/Hg (80-100); ARTERIAL BLOOD GAS TCO2 51.3 mmol/L (22-28)
[2018-07-02 06:34] LABS: BASO % 0.1 % (0.0-2.0); EOS # 0.1 K/uL (0.0-0.7); EOS % 0.4 % (0.0-4.0); LYMPH # 0.8 K/uL (1.0-4.3); MEAN CORPUSCULAR HEMOGLOBIN 34.4 pg (27.0-31.0); MEAN CORPUSCULAR HGB CONC 32.8 g/dL (33.0-37.0); MONO # 0.6 K/uL (0.0-0.8); MONO % 4.6 % (0.0-10.0); NEUT # 12.4 K/uL (1.8-7.0); NEUT % 88.9 % (50.0-75.0); PLATELET COUNT 151 K/uL (130-400); RBC 3.78 Mil/uL (4.40-5.90); RED CELL DISTRIBUTION WIDTH 14.7 % (11.5-14.5)
[2018-07-02 07:03] LABS: ALB/GLOB RATIO 1.1 (1.0-2.1); ALBUMIN 3.6 g/dL (3.5-5.0); ALT/SGPT 17 U/L (21-72); AST/SGOT 18 U/L (17-59); BLOOD UREA NITROGEN 79 mg/dL (9-20); CALCIUM 8.4 mg/dl (8.6-10.4); GFR NON-AFRICAN AMERICAN 57
--- NOTE | 2018-07-02 07:27 | CP.PCM.PN ---
Subjective - Date & Time of Evaluation Date of Evaluation: 07/02/18 Time of Evaluation: 08:00 - Subjective Subjective: Medicine note for Dr. Baker 's service Patient was seen and examined at bedside. Patient continues to be on BiPAP. Patient was examined while he was off BiPAP as he was eating his breakfast. Patient was alert, awake and oriented this morning. Patient denies any discomfort or pain. Objective - Vital Signs/Intake and Output Vital Signs (last 24 hours): Temp Pulse Resp BP Pulse Ox 98.9 F 91 H 20 151/72 H 95 07/02/18 05:30 07/02/18 06:33 07/02/18 05:30 07/02/18 05:30 07/02/18 05:30 Intake and Output: 07/02/18 07/02/18 06:59 18:59 Intake Total 600 Output Total 950 Balance -350 - Medications Medications: Current Medications Albuterol/Ipratropium (Duoneb 3 Mg/0.5 Mg (3 Ml) Ud) 3 ml INH RQ4 [facility] Last Admin: 07/02/18 04:03 Dose: 3 ml Allopurinol (Zyloprim) 100 mg PO DAILY [facility] Last Admin: 07/01/18 10:57 Dose: 100 mg Aspirin (Aspirin Chewable) 81 mg PO DAILY [facility] Last Admin: 07/01/18 10:57 Dose: 81 mg Budesonide (Pulmicort Respules) 0.5 mg IH RQ12 [facility] Last Admin: 07/01/18 19:12 Dose: 0.5 mg Carbamazepine (Tegretol-Xr) 200 mg PO DAILY [facility] Last Admin: 07/01/18 10:58 Dose: 200 mg Cilostazol (Pletal) 50 mg PO BID [facility] Last Admin: 07/01/18 18:02 Dose: Not Given Docusate Sodium (Colace) 100 mg PO BID [facility] Last Admin: 07/01/18 18:02 Dose: Not Given Finasteride (Proscar) 5 mg PO DAILY [facility] Last Admin: 07/01/18 10:57 Dose: 5 mg Folic Acid (Folic Acid) 1 mg PO DAILY [facility] Last Admin: 07/01/18 10:57 Dose: 1 mg Furosemide (Lasix) 40 mg IVP DAILY [facility] Last Admin: 07/01/18 10:59 Dose: 40 mg Gabapentin (Neurontin) 100 mg PO BID [facility] Last Admin: 07/01/18 18:01 Dose: Not Given Hydralazine HCl (Apresoline) 50 mg PO DAILY [facility] Last Admin: 07/01/18 10:57 Dose: 50 mg Piperacillin Sod/Tazobactam (Sod 2.25 gm/ Sodium Chloride) 100 mls @ 200 mls/hr IVPB Q8H [facility]; Protocol Last Admin: 07/02/18 02:30 Dose: 200 mls/hr Insulin Aspart (Novolog) 0 unit SC ACHS [facility]; Protocol Last Admin: 07/01/18 21:15 Dose: Not Given Isosorbide Mononitrate (Imdur) 120 mg PO DAILY [facility] Last Admin: 07/01/18 10:57 Dose: 120 mg Labetalol HCl (Normodyne) 300 mg PO BID [facility] Last Admin: 07/01/18 18:01 Dose: Not Given Magnesium Oxide (Mag-Ox) 400 mg PO BID [facility] Last Admin: 07/01/18 18:02 Dose: Not Given Pantoprazole Sodium (Protonix Ec Tab) 40 mg PO DAILY [facility] Last Admin: 07/01/18 11:03 Dose: 40 mg Pramipexole Dihydrochloride (Mirapex) 2 mg PO [facility] Last Admin: 07/01/18 21:16 Dose: Not Given Prednisone (Prednisone Tab) 30 mg PO DAILY [facility] Stop: 07/04/18 10:01 Prednisone (Prednisone Tab) 20 mg PO DAILY [facility] Stop: 07/07/18 10:01 Prednisone (Prednisone Tab) 10 mg PO DAILY [facility] Stop: 07/10/18 10:01 Primidone (Mysoline) 250 mg PO BID [facility] Last Admin: 07/01/18 18:02 Dose: Not Given Rosuvastatin Calcium (Crestor) 10 mg PO HS [facility] Last Admin: 07/01/18 21:16 Dose: Not Given Senna/Docusate Sodium (Senokot S 50 Mg-8.6 Mg) 2 tab PO BID [facility] Last Admin: 07/01/18 18:03 Dose: Not Given Tamsulosin HCl (Flomax) 0.8 mg PO DAILY [facility] Last Admin: 07/01/18 10:57 Dose: 0.8 mg Topiramate (Topamax) 50 mg PO HS [facility] Last Admin: 07/01/18 21:17 Dose: Not Given - Labs Labs: 07/02/18 06:23 04/11/19 06:23 PT 11.5 SECONDS (9.7-12.2) 06/24/18 14:24 INR 1.1 06/24/18 14:24 APTT 41 SECONDS (21-34) H 06/24/18 14:24 - Constitutional Appears: No Acute Distress, Chronically Ill - Head Exam Head Exam: ATRAUMATIC, NORMAL INSPECTION - Eye Exam Eye Exam: EOMI, Normal appearance - ENT Exam ENT Exam: Mucous Membranes Moist - Respiratory Exam Respiratory Exam: NORMAL BREATHING PATTERN - Cardiovascular Exam Cardiovascular Exam: REGULAR RHYTHM, +S1, +S2 - GI/Abdominal Exam GI & Abdominal Exam: Soft, Normal Bowel Sounds. absent: Tenderness - Extremities Exam Extremities Exam: Normal Inspection - Neurological Exam Neurological Exam: Alert, Awake, Oriented x3 - Psychiatric Exam Psychiatric exam: Normal Affect Assessment and Plan - Assessment and Plan (Free Text) Assessment: Hypercapnemia 2/2 COPD exacerbation; Hx of lung CA s/p radiation therapy Initial ABG showing CO2 retention; patient admitted to ICU 06/25/18 and transferred out of 06/26/18. - On BiPAP - Chest CT (06/25/18): Highly suspicious findings in both lungs and right hilar for tumor. Basilar atelectasis/infiltrates. Underlying emphysematous changes and bronchitic findings. Enlarged right adrenal gland. - Medications: * Zosyn 2.25gm Q8H, renal dose * Predinisone taper * Duonebs Q4H * Budesonide 0.5mg Q12H Oxygen desaturation 2/2 COPD exacerbation; Hx of lung CA s/p radiation therapy ICU consult Currently, on BiPAP ABG improving: CO2:69; O2 84; HCO3 31.4; pH 7.33 Essential tremor - Neurology Consult: Dr. Castro --> help appreciated - Patient currently takes Ropinirole 4mg po daily - per son the patient has not been taking it for 6 days. Son was concerned as patient was trembling. Spoke with Dr. Castro who stated to start Topomax 50mg HS - Mirapex 1mg PO HS Gout - Allopurinol 100mg PO daily Diabetes mellitus HgbA1C (06/25/18): 6.6 Accuchecks ISS- Low dose Diabetic neuropathy - Gabapentin 100mg PO bid Hypertension - Labetalol 300mg PO BID - Hydralazine 50mg PO daily - Isosorbid 120mg po daily BPH (benign prostatic hyperplasia) - Flomax 0.4mg PO daily - Finasteride 5mg PO daily Constipation Sennokot S 50Mg-8.6Mg 2 tab PO BID Colace 100mg PO BID Prophylactic measure - GI: Protonix 40mg PO daily - Heparin 5000 units SC Q12H - Discharge planning: Patient discharged to [facility]. All plans and management discussed with Dr. Samuel Arevalo PGY-2
[2018-07-02] MEDS: (Novolog) Insulin Aspart, Recombinant 100 u/ml 10 ml vial SC SCH ×4 (08:21→21:32)
[2018-07-02 08:33] LABS: BANDS 5 % (0-2); EOSINOPHIL 1 % (0-4); LYMPHOCYTE 3 % (20-40); MONOCYTE 2 % (0-10); NEUTROPHIL 88 % (50-75); PLATELET ESTIMATE NORMAL (NORMAL); REACTIVE LYMPHOCYTES 1 % (0-0); TOTAL CELLS COUNTED 100
[2018-07-02] MEDS: Budesonide 0.5 mg/2 ml Inhal Susp UD IH SCH ×2 (08:43→20:25)
[2018-07-02] MEDS: Pantoprazole 40 mg EC Tab PO SCH (09:18)
[2018-07-02] MEDS: Magnesium Oxide 400 mg Tab UD PO SCH ×2 (09:23→18:07)
[2018-07-02] MEDS: Labetalol Hydrochloride 300 mg Tab PO SCH ×2 (09:24→18:10)
[2018-07-02] MEDS: Docusate-Senna 50 mg-8.6 mg Tab PO SCH ×2 (09:24→18:08)
[2018-07-02] MEDS: Cilostazol 50 mg Tab UD PO SCH ×2 (09:24→18:08)
[2018-07-03] MEDS: Albuterol-Ipratrop 3 mg / 0.5 (3 ml) UD INH SCH ×6 (01:00→19:20)
[2018-07-03 07:23] LABS: BASO % 0.1 % (0.0-2.0); EOS # 0.2 K/uL (0.0-0.7); HEMOGLOBIN 12.5 g/dL (12.0-18.0); LYMPH # 0.8 K/uL (1.0-4.3); LYMPH % 8.2 % (20.0-40.0); MEAN CELL VOLUME 104.1 fL (80.0-94.0); MEAN CORPUSCULAR HEMOGLOBIN 34.4 pg (27.0-31.0); MEAN PLATELET VOLUME 8.9 fL (7.2-11.7); MONO # 0.5 K/uL (0.0-0.8); MONO % 5.4 % (0.0-10.0); NEUT # 8.6 K/uL (1.8-7.0); NEUT % 84.3 % (50.0-75.0); PLATELET COUNT 157 K/uL (130-400); RBC 3.63 Mil/uL (4.40-5.90); WHITE BLOOD COUNT 10.2 K/uL (4.8-10.8)
[2018-07-03] MEDS: (Novolog) Insulin Aspart, Recombinant 100 u/ml 10 ml vial SC SCH ×4 (07:46→22:04)
[2018-07-03 08:15] LABS: ALB/GLOB RATIO 1.2 (1.0-2.1); ALBUMIN 3.2 g/dL (3.5-5.0); ALT/SGPT 20 U/L (21-72); AST/SGOT 29 U/L (17-59); BLOOD UREA NITROGEN 43 mg/dL (9-20); CALCIUM 8.5 mg/dl (8.6-10.4); GFR NON-AFRICAN AMERICAN > 60
[2018-07-03] MEDS: Budesonide 0.5 mg/2 ml Inhal Susp UD IH SCH ×2 (08:26→19:20)
[2018-07-03 08:51] LABS: EOSINOPHIL 1 % (0-4); LYMPHOCYTE 8 % (20-40); MONOCYTE 2 % (0-10); NEUTROPHIL 88 % (50-75); PLATELET ESTIMATE NORMAL (NORMAL); REACTIVE LYMPHOCYTES 1 % (0-0); TOTAL CELLS COUNTED 100
[2018-07-03] MEDS: Magnesium Oxide 400 mg Tab UD PO SCH ×2 (09:55→18:02)
[2018-07-03] MEDS: Pantoprazole 40 mg EC Tab PO SCH (09:55)
[2018-07-03] MEDS: Docusate-Senna 50 mg-8.6 mg Tab PO SCH ×2 (09:56→18:02)
[2018-07-03] MEDS: Labetalol Hydrochloride 300 mg Tab PO SCH ×2 (09:57→17:35)
[2018-07-03] MEDS: Cilostazol 50 mg Tab UD PO SCH ×2 (09:58→18:02)
--- NOTE | 2018-07-03 14:00 | CP.PCM.PN ---
Subjective - Date & Time of Evaluation Date of Evaluation: 07/03/18 Time of Evaluation: 09:45 - Subjective Subjective: Medicine note (Dr. Baker's service) Patient was seen and examined at bedside. Patient was very alert, awake and oriented. Patient states that he is with symptomatic relief this am while on 3L of NC. Patient denies any symptoms or acute issues. Objective - Vital Signs/Intake and Output Vital Signs (last 24 hours): Temp Pulse Resp BP Pulse Ox 98.5 F 92 H 20 140/70 95 07/03/18 07:00 07/03/18 07:00 07/03/18 07:00 07/03/18 09:59 07/03/18 07:00 Intake and Output: 07/03/18 07/03/18 06:59 18:59 Intake Total 400 Output Total 1200 Balance -800 - Medications Medications: Current Medications Albuterol/Ipratropium (Duoneb 3 Mg/0.5 Mg (3 Ml) Ud) 3 ml INH RQ4 [facility] Last Admin: 07/03/18 11:29 Dose: 3 ml Allopurinol (Zyloprim) 100 mg PO DAILY [facility] Last Admin: 07/03/18 09:55 Dose: 100 mg Aspirin (Aspirin Chewable) 81 mg PO DAILY [facility] Last Admin: 07/03/18 09:55 Dose: 81 mg Budesonide (Pulmicort Respules) 0.5 mg IH RQ12 [facility] Last Admin: 07/03/18 08:26 Dose: 0.5 mg Carbamazepine (Tegretol-Xr) 200 mg PO DAILY [facility] Last Admin: 07/03/18 09:58 Dose: 200 mg Cilostazol (Pletal) 50 mg PO BID [facility] Last Admin: 07/03/18 09:58 Dose: 50 mg Docusate Sodium (Colace) 100 mg PO BID [facility] Last Admin: 07/03/18 09:55 Dose: 100 mg Finasteride (Proscar) 5 mg PO DAILY [facility] Last Admin: 07/03/18 09:54 Dose: 5 mg Folic Acid (Folic Acid) 1 mg PO DAILY [facility] Last Admin: 07/03/18 09:55 Dose: 1 mg Furosemide (Lasix) 40 mg IVP DAILY [facility] Last Admin: 07/03/18 09:59 Dose: 40 mg Gabapentin (Neurontin) 100 mg PO BID [facility] Last Admin: 07/03/18 09:55 Dose: 100 mg Hydralazine HCl (Apresoline) 50 mg PO DAILY [facility] Last Admin: 07/03/18 09:55 Dose: 50 mg Insulin Aspart (Novolog) 0 unit SC [facility]; Protocol Last Admin: 07/03/18 11:27 Dose: 2 u Isosorbide Mononitrate (Imdur) 120 mg PO DAILY [facility] Last Admin: 07/03/18 09:54 Dose: 120 mg Labetalol HCl (Normodyne) 300 mg PO BID [facility] Last Admin: 07/03/18 09:57 Dose: 300 mg Magnesium Oxide (Mag-Ox) 400 mg PO BID [facility] Last Admin: 07/03/18 09:55 Dose: 400 mg Pantoprazole Sodium (Protonix Ec Tab) 40 mg PO DAILY [facility] Last Admin: 07/03/18 09:55 Dose: 40 mg Pramipexole Dihydrochloride (Mirapex) 2 mg PO HS [facility] Last Admin: 07/02/18 21:41 Dose: 2 mg Prednisone (Prednisone Tab) 20 mg PO DAILY [facility] Stop: 07/07/18 10:01 Prednisone (Prednisone Tab) 10 mg PO DAILY [facility] Stop: 07/10/18 10:01 Prednisone (Prednisone Tab) 30 mg PO DAILY [facility] Stop: 07/04/18 10:01 Last Admin: 07/03/18 10:36 Dose: 30 mg Primidone (Mysoline) 250 mg PO BID [facility] Last Admin: 07/03/18 09:57 Dose: 250 mg Rosuvastatin Calcium (Crestor) 10 mg PO HS [facility] Last Admin: 07/02/18 21:41 Dose: 10 mg Senna/Docusate Sodium (Senokot S 50 Mg-8.6 Mg) 2 tab PO BID [facility] Last Admin: 07/03/18 09:56 Dose: 2 tab Tamsulosin HCl (Flomax) 0.8 mg PO DAILY [facility] Last Admin: 07/03/18 09:54 Dose: 0.8 mg Topiramate (Topamax) 50 mg PO HS [facility] Last Admin: 07/02/18 21:41 Dose: 50 mg - Labs Labs: 07/03/18 07:10 07/03/18 07:10 PT 11.5 SECONDS (9.7-12.2) 06/24/18 14:24 INR 1.1 06/24/18 14:24 APTT 41 SECONDS (21-34) H 06/24/18 14:24 - Constitutional Appears: No Acute Distress - Head Exam Head Exam: ATRAUMATIC, NORMAL INSPECTION - Eye Exam Eye Exam: EOMI, Normal appearance - ENT Exam ENT Exam: Mucous Membranes Moist - Respiratory Exam Respiratory Exam: NORMAL BREATHING PATTERN Additional comments: On 3L NC - Cardiovascular Exam Cardiovascular Exam: REGULAR RHYTHM, +S1, +S2 - GI/Abdominal Exam GI & Abdominal Exam: Soft, Normal Bowel Sounds. absent: Distended, Firm, Guarding, Rigid, Tenderness - Extremities Exam Extremities Exam: Normal Inspection. absent: Calf Tenderness, Pedal Edema - Neurological Exam Neurological Exam: Alert, Awake, Oriented x3 - Psychiatric Exam Psychiatric exam: Normal Affect - Skin Skin Exam: Normal Color Assessment and Plan (1) Hypercapnemia Assessment & Plan: 2/2 COPD exacerbation; Hx of lung CA s/p radiation therapy Initial ABG showing CO2 retention; patient admitted to ICU 06/25/18 and transferred out of 06/26/18. - On BiPAP - Chest CT (06/25/18): Highly suspicious findings in both lungs and right hilar for tumor. Basilar atelectasis/infiltrates. Underlying emphysematous changes and bronchitic findings. Enlarged right adrenal gland. - Medications: * Zosyn 2.25gm Q8H, renal dose * Predinisone taper * Duonebs Q4H * Budesonide 0.5mg Q12H Status: Acute (2) Oxygen desaturation Assessment & Plan: 2/2 COPD exacerbation; Hx of lung CA s/p radiation therapy ICU consult Currently, on BiPAP Status: Acute (3) Essential tremor Assessment & Plan: Neurology Consult: Dr. Castro --> help appreciated - Patient currently takes Ropinirole 4mg po daily - per son the patient has not been taking it for 6 days. Son was concerned as patient was trembling. Spoke with Dr. Castro who stated to start Topomax 50mg HS - Mirapex 1mg PO HS Status: Acute (4) Gout Assessment & Plan: - Allopurinol 100mg PO daily Status: Acute (5) Diabetes mellitus Assessment & Plan: HgbA1C (06/25/18): 6.6 Accuchecks ISS- Low dose Status: Acute (6) Diabetic neuropathy Assessment & Plan: - Gabapentin 100mg PO bid Status: Acute (7) Hypertension Assessment & Plan: - Labetalol 300mg PO BID - Hydralazine 50mg PO daily - Isosorbid 120mg po daily Status: Acute (8) BPH (benign prostatic hyperplasia) Assessment & Plan: - Flomax 0.4mg PO daily - Finasteride 5mg PO daily Status: Acute (9) Constipation Assessment & Plan: Sennokot S 50Mg-8.6Mg 2 tab PO BID Colace 100mg PO BID Status: Acute (10) Prophylactic measure Assessment & Plan: - GI: Protonix 40mg PO daily - Heparin 5000 units SC Q12H Disposition: Patient was not accepted to subacute rehab due to the continues use of BiPAP; social work professor will be speaking to son in regards to a snf care facility. Will monitor patient on 3L of O2 for 24-48 hours to reevaluate qualification for subacute rehab as patient cannot be on continuos BiPAP at [facility] All plans and management discussed with Dr. Baker Status: Acute
--- NOTE | 2018-07-03 17:32 | PCM.RRT ---
<Ayden Cazares M - Last Filed: 07/03/18 20:35> GRANULATOR TENDER Nurses Assessment - Situation Date: 07/03/18 Time GRANULATOR TENDER was called: 17:16 GRANULATOR TENDER Responder Arrival Time:: 17:17 GRANULATOR TENDER Location:: 3T Med/Oncology GRANULATOR TENDER Reason for Call: Tachycardia GRANULATOR TENDER Called By: RN - IV IV Inserted during GRANULATOR TENDER?: No - Ventilator Settings FIO2 (% Oxygen): 30 - Diagnostic Test Ordered EKG: No Chest X-Ray: No CT Scan: No I.Reason for GRANULATOR TENDER - A) Acute Change in Patient: (Select all that apply): Staff member or family is worried about patient - Neurological Status (Select all that apply): Alert, Responsive, Oriented, Verbal, Follows Commands - Respiratory Oxygen Delivery Method: Nasal Cannula @L/min (2) - Constitutional Appears: No Acute Distress - Head Head Exam: NORMAL INSPECTION - Eyes Eye Exam: EOMI, Normal appearance - Respiratory Exam Respiratory Exam: Clear to Ausculation Bilateral, NORMAL BREATHING PATTERN. absent: Rales, Rhonchi, Wheezes - Cardiovascular Exam Cardiovascular Exam: +S1, +S2. absent: Murmur - GI/Abdominal Exam GI & Abdominal Exam: Soft, Normal Bowel Sounds. absent: Rigid - Neurological Exam Neurological Exam: Awake, Oriented x3 - Extremities Exam Extremities Exam: Full ROM, Normal Inspection. 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 Primary made aware and requested Dr. Bravo to be consulted. <Brennen Elder J - Last Filed: 07/04/18 16:03> GRANULATOR TENDER Nurses Assessment - Vital Signs Vital Signs: Rapid Response Vital Sign Blood Pressure 122/65 Pulse Rate 173 Respiratory Rate 18 Temperature 97.5 F Oxygen Saturation 94 - Vital Signs at end of GRANULATOR TENDER Vital Signs at end of GRANULATOR TENDER: Rapid Response End Vital Sign Blood Pressure 125/75 Pulse Rate 97 Respiratory Rate 18 Temperature 97.6 F O2 Sat by Pulse Oximetry 94 Attending/Attestation - Attestation I have personally seen and examined this patient.: Yes I have fully participated in the care of the patient.: Yes I have reviewed all pertinent clinical information, including history, physical exam and plan: Yes Notes (Text): 07/04/18 16:02 This is a late entry. Patient was seen and examined and GRANULATOR TENDER managed with resident Dr. Rafita Elder D.O.
[2018-07-03] MEDS ORDERED: Home Med 1 UNIT PO SCH (22:00)
[2018-07-04] MEDS: Albuterol-Ipratrop 3 mg / 0.5 (3 ml) UD INH SCH ×6 (00:41→19:12)
[2018-07-04 07:11] LABS: BASO % 0.2 % (0.0-2.0); EOS # 0.2 K/uL (0.0-0.7); EOS % 3.3 % (0.0-4.0); HEMOGLOBIN 12.6 g/dL (12.0-18.0); LYMPH # 0.9 K/uL (1.0-4.3); LYMPH % 11.6 % (20.0-40.0); MEAN CELL VOLUME 104.4 fL (80.0-94.0); MEAN CORPUSCULAR HEMOGLOBIN 34.5 pg (27.0-31.0); MEAN PLATELET VOLUME 9.4 fL (7.2-11.7); MONO # 0.4 K/uL (0.0-0.8); MONO % 5.9 % (0.0-10.0); NEUT # 5.9 K/uL (1.8-7.0); NRBC % 0.1 % (0.0-2.0); RBC 3.66 Mil/uL (4.40-5.90); RED CELL DISTRIBUTION WIDTH 14.8 % (11.5-14.5); WHITE BLOOD COUNT 7.5 K/uL (4.8-10.8)
[2018-07-04 07:35] LABS: ALB/GLOB RATIO 1.2 (1.0-2.1); ALBUMIN 3.3 g/dL (3.5-5.0); ALT/SGPT 18 U/L (21-72); AST/SGOT 29 U/L (17-59); BLOOD UREA NITROGEN 46 mg/dL (9-20); CALCIUM 8.4 mg/dl (8.6-10.4); GFR NON-AFRICAN AMERICAN > 60
[2018-07-04] MEDS: Budesonide 0.5 mg/2 ml Inhal Susp UD IH SCH ×2 (07:54→19:12)
[2018-07-04] MEDS: [UNRECOGNIZED DRUG - OTHER] PO SCH ×4 (08:30→22:03)
[2018-07-04] MEDS: ROPINIROLE PO SCH ×4 (08:30→22:03)
[2018-07-04] MEDS: (Novolog) Insulin Aspart, Recombinant 100 u/ml 10 ml vial SC SCH ×4 (08:30→21:21)
[2018-07-04] MEDS: Pantoprazole 40 mg EC Tab PO SCH (10:22)
[2018-07-04] MEDS: Magnesium Oxide 400 mg Tab UD PO SCH ×2 (10:22→17:24)
[2018-07-04] MEDS: Cilostazol 50 mg Tab UD PO SCH ×2 (10:23→17:52)
[2018-07-04] MEDS: Docusate-Senna 50 mg-8.6 mg Tab PO SCH ×2 (10:23→17:27)
[2018-07-04] MEDS: Labetalol Hydrochloride 300 mg Tab PO SCH ×2 (10:48→17:26)
[2018-07-04] MEDS ORDERED: Home Med 1 UNIT PO SCH (12:00)
[2018-07-04 16:40] LABS: ABG ALLEN TEST POS; ARTERIAL BLOOD GAS HCO3 37.3 mmol/L (21-28); ARTERIAL BLOOD GAS HEMOGLOBIN 10.9 g/dL (11.7-17.4); ARTERIAL BLOOD GAS PCO2 63 mm/Hg (35-45); ARTERIAL BLOOD GAS PH 7.44 (7.35-7.45); ARTERIAL BLOOD GAS PO2 69 mm/Hg (80-100); ARTERIAL BLOOD GAS TCO2 44.7 mmol/L (22-28)
--- NOTE | 2018-07-04 23:22 | CP.PCM.CON ---
History of Present Illness - History of Present Illness History of Present Illness: Reason For Consultation: R apid a Fib/New Onset A Fib Patient was seen and examined at bedside. Comfortable. denies chest pain and dyspnea Physical examination - Constitutional Appears: No Acute Distress - Head Exam Head Exam: ATRAUMATIC, NORMAL INSPECTION - Eye Exam Eye Exam: EOMI, Normal appearance - ENT Exam ENT Exam: Mucous Membranes Moist - Respiratory Exam Respiratory Exam: NORMAL BREATHING PATTERN Additional comments: On 3L NC - Cardiovascular Exam Cardiovascular Exam: REGULAR RHYTHM, +S1, +S2 - GI/Abdominal Exam GI & Abdominal Exam: Soft, Normal Bowel Sounds. absent: Distended, Firm, Guarding, Rigid, Tenderness - Extremities Exam Extremities Exam: Normal Inspection. absent: Calf Tenderness, Pedal Edema - Neurological Exam Neurological Exam: Alert, Awake, Oriented x3 - Psychiatric Exam Psychiatric exam: Normal Affect - Skin Skin Exam: Normal Color Assessment and Plan (1) Hypercapnemia Assessment & Plan: 2/2 COPD exacerbation; Hx of lung CA s/p radiation therapy Initial ABG showing CO2 retention; patient admitted to ICU 06/25/18 and transferred out of 06/26/18. - On BiPAP - Chest CT (06/25/18): Highly suspicious findings in both lungs and right hilar for tumor. Basilar atelectasis/infiltrates. Underlying emphysematous changes and bronchitic findings. Enlarged right adrenal gland. - Medications: * Zosyn 2.25gm Q8H, renal dose * Predinisone taper * Duonebs Q4H * Budesonide 0.5mg Q12H Status: Acute (2) Oxygen desaturation Assessment & Plan: 2/2 COPD exacerbation; Hx of lung CA s/p radiation therapy ICU consult Currently, on BiPAP Status: Acute (3) Essential tremor Assessment & Plan: Neurology Consult: Dr. Castro --> help appreciated - Patient currently takes Ropinirole 4mg po daily - per son the patient has not been taking it for 6 days. Son was concerned as patient was trembling. Spoke with Dr. Castro who stated to start Topomax 50mg HS - Mirapex 1mg PO HS Status: Acute (4) Gout Assessment & Plan: - Allopurinol 100mg PO daily Status: Acute (5) Diabetes mellitus Assessment & Plan: HgbA1C (06/25/18): 6.6 Accuchecks ISS- Low dose Status: Acute (6) Diabetic neuropathy Assessment & Plan: - Gabapentin 100mg PO bid Status: Acute (7) Hypertension Assessment & Plan: - Labetalol 300mg PO BID - Hydralazine 50mg PO daily - Isosorbid 120mg po daily Status: Acute (8) BPH (benign prostatic hyperplasia) Assessment & Plan: - Flomax 0.4mg PO daily - Finasteride 5mg PO daily Status: Acute (9) Constipation Assessment & Plan: Sennokot S 50Mg-8.6Mg 2 tab PO BID Colace 100mg PO BID (9) New Onset A Fib/Paraxysmal Assessment & Plan: Continue Labetolol Add Lovenox 70 sq bid Past Patient History - Tetanus Immunizations Tetanus Immunization: Unknown - Past Medical History & Family History Past Medical History?: Yes - Past Social History Smoking Status: Former Smoker - CARDIAC Hx Cardiac Disorders: Yes Hx Hypertension: Yes - PULMONARY Hx Chronic Obstructive Pulmonary Disease (COPD): Yes - NEUROLOGICAL Other/Comment: "Essential Tremor - Involuntary Movement" - ENDOCRINE/METABOLIC Hx Diabetes Mellitus Type 2: Yes - MUSCULOSKELETAL/RHEUMATOLOGICAL Hx Falls: Yes - GENITOURINARY/GYNECOLOGICAL Hx Prostate Problems: Yes (BPH) - PSYCHIATRIC Hx Substance Use: No - SURGICAL HISTORY Hx Cholecystectomy: Yes - ANESTHESIA Hx Anesthesia: Yes Hx Anesthesia Reactions: Yes Hx Malignant Hyperthermia: No Has any member of the family had a problem w/ anesthesia?: No Meds Home Medications: Home Medication List Medication Instructions Recorded Confirmed Type Docusate Sodium/Sennosides A 2 tab PO BID tab 07/02/18 Rx [Senokot S 50 MG-8.6 MG] Docusate [Colace] 100 mg PO BID cap 07/02/18 Rx predniSONE [predniSONE Tab] 10 mg PO DAILY tab 07/02/18 Rx predniSONE [predniSONE Tab] 20 mg PO DAILY tab 07/02/18 Rx predniSONE [predniSONE Tab] 30 mg PO DAILY tab 07/02/18 Rx predniSONE [predniSONE Tab] 40 mg PO DAILY tab 07/02/18 Rx Allergies/Adverse Reactions: Allergies Allergy/AdvReac Type Severity Reaction Status Date / Time No Known Allergies Allergy Verified 06/24/18 14:19 - Medications Medications: Current Medications Albuterol/Ipratropium (Duoneb 3 Mg/0.5 Mg (3 Ml) Ud) 3 ml INH RQ4 [facility] Last Admin: 07/04/18 19:12 Dose: 3 ml Allopurinol (Zyloprim) 100 mg PO DAILY [facility] Last Admin: 07/04/18 10:21 Dose: 100 mg Aspirin (Aspirin Chewable) 81 mg PO DAILY [facility] Last Admin: 07/04/18 10:22 Dose: 81 mg Budesonide (Pulmicort Respules) 0.5 mg IH RQ12 [facility] Last Admin: 07/04/18 19:12 Dose: 0.5 mg Carbamazepine (Tegretol-Xr) 200 mg PO DAILY [facility] Last Admin: 07/04/18 10:24 Dose: 200 mg Cilostazol (Pletal) 50 mg PO BID [facility] Last Admin: 07/04/18 17:52 Dose: 50 mg Docusate Sodium (Colace) 100 mg PO BID [facility] Last Admin: 07/04/18 17:27 Dose: Not Given Finasteride (Proscar) 5 mg PO DAILY [facility] Last Admin: 07/04/18 12:00 Dose: 5 mg Folic Acid (Folic Acid) 1 mg PO DAILY [facility] Last Admin: 07/04/18 10:22 Dose: 1 mg Furosemide (Lasix) 40 mg IVP DAILY [facility] Last Admin: 07/04/18 10:21 Dose: 40 mg Gabapentin (Neurontin) 100 mg PO BID [facility] Last Admin: 07/04/18 17:24 Dose: 100 mg Home Med (Patient's Own Medication) 1 tab PO 0100,0700,1400,2200 [facility] Last Admin: 07/04/18 22:03 Dose: 1 tab Hydralazine HCl (Apresoline) 50 mg PO DAILY [facility] Last Admin: 07/04/18 10:22 Dose: 50 mg Insulin Aspart (Novolog) 0 unit SC [facility]; Protocol Last Admin: 07/04/18 21:21 Dose: Not Given Isosorbide Mononitrate (Imdur) 120 mg PO DAILY [facility] Last Admin: 07/04/18 10:22 Dose: 120 mg Labetalol HCl (Normodyne) 300 mg PO BID [facility] Last Admin: 07/04/18 17:26 Dose: 300 mg Magnesium Oxide (Mag-Ox) 400 mg PO BID [facility] Last Admin: 07/04/18 17:24 Dose: 400 mg Pantoprazole Sodium (Protonix Ec Tab) 40 mg PO DAILY [facility] Last Admin: 07/04/18 10:22 Dose: 40 mg Prednisone (Prednisone Tab) 20 mg PO DAILY [facility] Stop: 07/07/18 10:01 Prednisone (Prednisone Tab) 10 mg PO DAILY [facility] Stop: 07/10/18 10:01 Primidone (Mysoline) 250 mg PO BID [facility] Last Admin: 07/04/18 17:26 Dose: 250 mg Rosuvastatin Calcium (Crestor) 10 mg PO HS [facility] Last Admin: 07/04/18 21:35 Dose: 10 mg Senna/Docusate Sodium (Senokot S 50 Mg-8.6 Mg) 2 tab PO BID [facility] Last Admin: 07/04/18 17:27 Dose: Not Given Tamsulosin HCl (Flomax) 0.8 mg PO DAILY [facility] Last Admin: 07/04/18 12:00 Dose: 0.8 mg Topiramate (Topamax) 50 mg PO HS [facility] Last Admin: 07/04/18 21:34 Dose: 50 mg Results - Vital Signs Recent Vital Signs: Last Vital Signs Temp 98.3 F 07/04/18 15:00 Pulse 82 07/04/18 21:34 Resp 20 07/04/18 15:00 BP 123/59 L 07/04/18 15:00 Pulse Ox 93 L 07/04/18 15:00 - Labs Result Diagrams: 07/04/18 07:00 07/04/18 07:00 Labs: Laboratory Results - last 24 hr 07/04/18 07/04/18 07/04/18 07:00 07:00 07:58 WBC 7.5 RBC 3.66 L Hgb 12.6 Hct 38.2 MCV 104.4 H MCH 34.5 H MCHC 33.0 RDW 14.8 H Plt Count 160 MPV 9.4 Neut % (Auto) 79.0 H Lymph % (Auto) 11.6 L Mccone % (Auto) 5.9 Eos % (Auto) 3.3 Baso % (Auto) 0.2 Neut # (Auto) 5.9 Lymph # (Auto) 0.9 L Mccone # (Auto) 0.4 Eos # (Auto) 0.2 Baso # (Auto) 0.0 Puncture Site pCO2 pO2 HCO3 ABG pH ABG Total CO2 ABG O2 Saturation ABG Base Excess ABG Hemoglobin ABG Carboxyhemoglobin POC ABG HHb (Measured) ABG Methemoglobin Ramon Test A-a O2 Difference Respiratory Index Hgb O2 Saturation Liter Flow FiO2 Sodium 143 Potassium 4.3 Chloride 96 L Carbon Dioxide 41 H* Anion Gap 10 BUN 46 H Creatinine 1.0 Est GFR ( Amer) > 60 Est GFR (Non-Af Amer) > 60 POC Glucose (mg/dL) 152 H Random Glucose 157 H Calcium 8.4 L Phosphorus 3.0 Magnesium 2.8 H Total Bilirubin 0.5 AST 29 ALT 18 L Alkaline Phosphatase 109 Total Protein 6.0 L Albumin 3.3 L Globulin 2.7 Albumin/Globulin Ratio 1.2 07/04/18 07/04/18 07/04/18 10:57 16:23 16:35 WBC RBC Hgb Hct MCV MCH MCHC RDW Plt Count MPV Neut % (Auto) Lymph % (Auto) Mccone % (Auto) Eos % (Auto) Baso % (Auto) Neut # (Auto) Lymph # (Auto) Mccone # (Auto) Eos # (Auto) Baso # (Auto) Puncture Site Rra pCO2 63 H pO2 69 L HCO3 37.3 H ABG pH 7.44 ABG Total CO2 44.7 H ABG O2 Saturation 97.0 ABG Base Excess 16.0 H ABG Hemoglobin 10.9 L ABG Carboxyhemoglobin 2.1 H POC ABG HHb (Measured) 2.9 ABG Methemoglobin 1.4 Ramon Test Pos A-a O2 Difference 109.0 Respiratory Index 1.6 Hgb O2 Saturation 93.7 L Liter Flow 4.0 FiO2 36.0 Sodium Potassium Chloride Carbon Dioxide Anion Gap BUN Creatinine Est GFR ( Amer) Est GFR (Non-Af Amer) POC Glucose (mg/dL) 280 H 208 H Random Glucose Calcium Phosphorus Magnesium Total Bilirubin AST ALT Alkaline Phosphatase Total Protein Albumin Globulin Albumin/Globulin Ratio
[2018-07-05] MEDS: [UNRECOGNIZED DRUG - OTHER] PO SCH ×4 (00:36→21:46)
[2018-07-05] MEDS: ROPINIROLE PO SCH ×4 (00:36→21:46)
[2018-07-05] MEDS: Albuterol-Ipratrop 3 mg / 0.5 (3 ml) UD INH SCH ×6 (00:48→19:23)
[2018-07-05] MEDS: Budesonide 0.5 mg/2 ml Inhal Susp UD IH SCH ×2 (08:14→19:23)
[2018-07-05] MEDS: (Novolog) Insulin Aspart, Recombinant 100 u/ml 10 ml vial SC SCH ×4 (08:28→21:43)
[2018-07-05] MEDS: Magnesium Oxide 400 mg Tab UD PO SCH ×2 (09:14→18:05)
[2018-07-05] MEDS: Pantoprazole 40 mg EC Tab PO SCH (09:14)
[2018-07-05] MEDS: Enoxaparin 60 mg Syringe SC SCH ×2 (09:15→21:45)
[2018-07-05] MEDS: Cilostazol 50 mg Tab UD PO SCH ×2 (09:17→18:06)
[2018-07-05] MEDS: Labetalol Hydrochloride 300 mg Tab PO SCH ×2 (09:17→18:07)
[2018-07-05] MEDS: Docusate-Senna 50 mg-8.6 mg Tab PO SCH ×2 (09:18→18:07)
--- NOTE | 2018-07-05 22:44 | CP.PCM.PN ---
Subjective - Date & Time of Evaluation Date of Evaluation: 07/05/18 Time of Evaluation: 09:10 - Subjective Subjective: Patient seen and evaluated No new cardiac events noted Physical examination - Constitutional Appears: No Acute Distress - Head Exam Head Exam: ATRAUMATIC, NORMAL INSPECTION - Eye Exam Eye Exam: EOMI, Normal appearance - ENT Exam ENT Exam: Mucous Membranes Moist - Respiratory Exam Respiratory Exam: NORMAL BREATHING PATTERN Additional comments: On 3L NC - Cardiovascular Exam Cardiovascular Exam: REGULAR RHYTHM, +S1, +S2 - GI/Abdominal Exam GI & Abdominal Exam: Soft, Normal Bowel Sounds. absent: Distended, Firm, Guarding, Rigid, Tenderness - Extremities Exam Extremities Exam: Normal Inspection. absent: Calf Tenderness, Pedal Edema - Neurological Exam Neurological Exam: Alert, Awake, Oriented x3 - Psychiatric Exam Psychiatric exam: Normal Affect - Skin Skin Exam: Normal Color Assessment and Plan (1) Hypercapnemia Assessment & Plan: 2/2 COPD exacerbation; Hx of lung CA s/p radiation therapy Initial ABG showing CO2 retention; patient admitted to ICU 06/25/18 and transferred out of 06/26/18. - On BiPAP - Chest CT (06/25/18): Highly suspicious findings in both lungs and right hilar for tumor. Basilar atelectasis/infiltrates. Underlying emphysematous changes and bronchitic findings. Enlarged right adrenal gland. - Medications: * Zosyn 2.25gm Q8H, renal dose * Predinisone taper * Duonebs Q4H * Budesonide 0.5mg Q12H Status: Acute (2) Oxygen desaturation Assessment & Plan: 2/2 COPD exacerbation; Hx of lung CA s/p radiation therapy ICU consult Currently, on BiPAP Status: Acute (3) Essential tremor Assessment & Plan: Neurology Consult: Dr. Castro --> help appreciated - Patient currently takes Ropinirole 4mg po daily - per son the patient has not been taking it for 6 days. Son was concerned as patient was trembling. Spoke with Dr. Castro who stated to start Topomax 50mg HS - Mirapex 1mg PO HS Status: Acute (4) Gout Assessment & Plan: - Allopurinol 100mg PO daily Status: Acute (5) Diabetes mellitus Assessment & Plan: HgbA1C (06/25/18): 6.6 Accuchecks ISS- Low dose Status: Acute (6) Diabetic neuropathy Assessment & Plan: - Gabapentin 100mg PO bid Status: Acute (7) Hypertension Assessment & Plan: - Labetalol 300mg PO BID - Hydralazine 50mg PO daily - Isosorbid 120mg po daily Status: Acute (8) BPH (benign prostatic hyperplasia) Assessment & Plan: - Flomax 0.4mg PO daily - Finasteride 5mg PO daily Status: Acute (9) Constipation Assessment & Plan: Sennokot S 50Mg-8.6Mg 2 tab PO BID Colace 100mg PO BID (9) New Onset A Fib/Paraxysmal Assessment & Plan: Continue Labetolol Add Lovenox 70 sq bid Objective - Vital Signs/Intake and Output Vital Signs (last 24 hours): Temp Pulse Resp BP Pulse Ox 97.9 F 78 18 122/56 L 95 07/05/18 21:16 07/05/18 22:02 07/05/18 21:16 07/05/18 21:16 07/05/18 15:00 Intake and Output: 07/05/18 07/06/18 18:59 06:59 Intake Total 500 Balance 500 - Medications Medications: Current Medications Albuterol/Ipratropium (Duoneb 3 Mg/0.5 Mg (3 Ml) Ud) 3 ml INH RQ4 [facility] Last Admin: 07/05/18 19:23 Dose: 3 ml Allopurinol (Zyloprim) 100 mg PO DAILY [facility] Last Admin: 07/05/18 09:15 Dose: 100 mg Aspirin (Aspirin Chewable) 81 mg PO DAILY [facility] Last Admin: 07/05/18 09:14 Dose: 81 mg Budesonide (Pulmicort Respules) 0.5 mg IH RQ12 [facility] Last Admin: 07/05/18 19:23 Dose: 0.5 mg Carbamazepine (Tegretol-Xr) 200 mg PO DAILY [facility] Last Admin: 07/05/18 09:16 Dose: 200 mg Cilostazol (Pletal) 50 mg PO BID [facility] Last Admin: 07/05/18 18:06 Dose: 50 mg Docusate Sodium (Colace) 100 mg PO BID [facility] Last Admin: 07/05/18 18:05 Dose: Not Given Enoxaparin Sodium (Lovenox) 60 mg SC Q12 [facility] Last Admin: 07/05/18 21:45 Dose: 60 mg Finasteride (Proscar) 5 mg PO DAILY [facility] Last Admin: 07/05/18 09:14 Dose: 5 mg Folic Acid (Folic Acid) 1 mg PO DAILY [facility] Last Admin: 07/05/18 09:15 Dose: 1 mg Furosemide (Lasix) 40 mg IVP DAILY [facility] Last Admin: 07/05/18 09:15 Dose: 40 mg Gabapentin (Neurontin) 100 mg PO BID [facility] Last Admin: 07/05/18 18:05 Dose: 100 mg Home Med (Patient's Own Medication) 1 tab PO 0100,0700,1400,2200 [facility] Last Admin: 07/05/18 21:46 Dose: 1 tab Hydralazine HCl (Apresoline) 50 mg PO DAILY [facility] Last Admin: 07/05/18 09:14 Dose: 50 mg Insulin Aspart (Novolog) 0 unit SC [facility]; Protocol Last Admin: 07/05/18 21:43 Dose: Not Given Isosorbide Mononitrate (Imdur) 120 mg PO DAILY [facility] Last Admin: 07/05/18 09:14 Dose: 120 mg Labetalol HCl (Normodyne) 300 mg PO BID [facility] Last Admin: 07/05/18 18:07 Dose: 300 mg Magnesium Oxide (Mag-Ox) 400 mg PO BID [facility] Last Admin: 07/05/18 18:05 Dose: 400 mg Pantoprazole Sodium (Protonix Ec Tab) 40 mg PO DAILY [facility] Last Admin: 07/05/18 09:14 Dose: 40 mg Prednisone (Prednisone Tab) 20 mg PO DAILY [facility] Stop: 07/07/18 10:01 Last Admin: 07/05/18 09:14 Dose: 20 mg Prednisone (Prednisone Tab) 10 mg PO DAILY [facility] Stop: 07/10/18 10:01 Primidone (Mysoline) 250 mg PO BID [facility] Last Admin: 07/05/18 18:06 Dose: 250 mg Rosuvastatin Calcium (Crestor) 10 mg PO [facility] Last Admin: 07/05/18 21:45 Dose: 10 mg Senna/Docusate Sodium (Senokot S 50 Mg-8.6 Mg) 2 tab PO BID [facility] Last Admin: 07/05/18 18:07 Dose: Not Given Tamsulosin HCl (Flomax) 0.8 mg PO DAILY [facility] Last Admin: 07/05/18 09:13 Dose: 0.8 mg Topiramate (Topamax) 50 mg PO [facility] Last Admin: 07/05/18 21:46 Dose: 50 mg - Labs Labs: 07/04/18 07:00 07/04/18 07:00 PT 11.5 SECONDS (9.7-12.2) 06/24/18 14:24 INR 1.1 06/24/18 14:24 APTT 41 SECONDS (21-34) H 06/24/18 14:24
[2018-07-06] MEDS: Albuterol-Ipratrop 3 mg / 0.5 (3 ml) UD INH SCH ×2 (00:56→03:32)
[2018-07-06] MEDS: ROPINIROLE PO SCH ×3 (01:35→13:48)
[2018-07-06] MEDS: [UNRECOGNIZED DRUG - OTHER] PO SCH ×3 (01:35→13:48)
[2018-07-06] MEDS: (Novolog) Insulin Aspart, Recombinant 100 u/ml 10 ml vial SC SCH ×2 (07:30→14:01)
--- NOTE | 2018-07-06 07:54 | CP.PCM.PN ---
Subjective - Date & Time of Evaluation Date of Evaluation: 07/06/18 Time of Evaluation: 08:00 - Subjective Subjective: Medicine Progress note for Dr. Baker's service Patient was seen and examined at bedside. Patient was very alert, awake and oriented. Patient states that he is with symptomatic relief this am while on 3L of NC. Patient denies any symptoms or acute issues. Patient states he would like to go home and receive physical therapy at home. Objective - Vital Signs/Intake and Output Vital Signs (last 24 hours): Temp Pulse Resp BP Pulse Ox 97.5 F L 73 22 133/68 97 07/05/18 23:15 07/06/18 06:25 07/05/18 23:15 07/05/18 23:15 07/06/18 02:41 Intake and Output: 07/06/18 07/06/18 06:59 18:59 Intake Total 500 Output Total 700 Balance -200 - Medications Medications: Current Medications Albuterol/Ipratropium (Duoneb 3 Mg/0.5 Mg (3 Ml) Ud) 3 ml INH RQ4 [facility] Last Admin: 07/06/18 03:32 Dose: 3 ml Allopurinol (Zyloprim) 100 mg PO DAILY [facility] Last Admin: 07/05/18 09:15 Dose: 100 mg Aspirin (Aspirin Chewable) 81 mg PO DAILY [facility] Last Admin: 07/05/18 09:14 Dose: 81 mg Budesonide (Pulmicort Respules) 0.5 mg IH RQ12 [facility] Last Admin: 07/05/18 19:23 Dose: 0.5 mg Carbamazepine (Tegretol-Xr) 200 mg PO DAILY [facility] Last Admin: 07/05/18 09:16 Dose: 200 mg Cilostazol (Pletal) 50 mg PO BID [facility] Last Admin: 07/05/18 18:06 Dose: 50 mg Docusate Sodium (Colace) 100 mg PO BID [facility] Last Admin: 07/05/18 18:05 Dose: Not Given Enoxaparin Sodium (Lovenox) 60 mg SC Q12 [facility] Last Admin: 07/05/18 21:45 Dose: 60 mg Finasteride (Proscar) 5 mg PO DAILY [facility] Last Admin: 07/05/18 09:14 Dose: 5 mg Folic Acid (Folic Acid) 1 mg PO DAILY [facility] Last Admin: 07/05/18 09:15 Dose: 1 mg Furosemide (Lasix) 40 mg IVP DAILY [facility] Last Admin: 07/05/18 09:15 Dose: 40 mg Gabapentin (Neurontin) 100 mg PO BID [facility] Last Admin: 07/05/18 18:05 Dose: 100 mg Home Med (Patient's Own Medication) 1 tab PO 0100,0700,1400,2200 [facility] Last Admin: 07/06/18 07:08 Dose: 1 tab Hydralazine HCl (Apresoline) 50 mg PO DAILY [facility] Last Admin: 07/05/18 09:14 Dose: 50 mg Insulin Aspart (Novolog) 0 unit SC [facility]; Protocol Last Admin: 07/05/18 21:43 Dose: Not Given Isosorbide Mononitrate (Imdur) 120 mg PO DAILY [facility] Last Admin: 07/05/18 09:14 Dose: 120 mg Labetalol HCl (Normodyne) 300 mg PO BID [facility] Last Admin: 07/05/18 18:07 Dose: 300 mg Magnesium Oxide (Mag-Ox) 400 mg PO BID [facility] Last Admin: 07/05/18 18:05 Dose: 400 mg Pantoprazole Sodium (Protonix Ec Tab) 40 mg PO DAILY [facility] Last Admin: 07/05/18 09:14 Dose: 40 mg Prednisone (Prednisone Tab) 20 mg PO DAILY [facility] Stop: 07/07/18 10:01 Last Admin: 07/05/18 09:14 Dose: 20 mg Prednisone (Prednisone Tab) 10 mg PO DAILY [facility] Stop: 07/10/18 10:01 Primidone (Mysoline) 250 mg PO BID [facility] Last Admin: 07/05/18 18:06 Dose: 250 mg Rosuvastatin Calcium (Crestor) 10 mg PO [facility] Last Admin: 07/05/18 21:45 Dose: 10 mg Senna/Docusate Sodium (Senokot S 50 Mg-8.6 Mg) 2 tab PO BID [facility] Last Admin: 07/05/18 18:07 Dose: Not Given Tamsulosin HCl (Flomax) 0.8 mg PO DAILY [facility] Last Admin: 07/05/18 09:13 Dose: 0.8 mg Topiramate (Topamax) 50 mg PO [facility] Last Admin: 07/05/18 21:46 Dose: 50 mg - Labs Labs: 07/04/18 07:00 07/04/18 07:00 PT 11.5 SECONDS (9.7-12.2) 06/24/18 14:24 INR 1.1 06/24/18 14:24 APTT 41 SECONDS (21-34) H 06/24/18 14:24 - Constitutional Appears: No Acute Distress - Head Exam Head Exam: ATRAUMATIC, NORMAL INSPECTION - Eye Exam Eye Exam: EOMI, Normal appearance - ENT Exam ENT Exam: Mucous Membranes Moist - Respiratory Exam Respiratory Exam: Clear to Ausculation Bilateral, NORMAL BREATHING PATTERN - Cardiovascular Exam Cardiovascular Exam: REGULAR RHYTHM, +S1, +S2 - GI/Abdominal Exam GI & Abdominal Exam: Soft, Normal Bowel Sounds. absent: Tenderness - Extremities Exam Extremities Exam: Normal Inspection - Neurological Exam Neurological Exam: Alert, Awake, Oriented x3 - Psychiatric Exam Psychiatric exam: Normal Affect Assessment and Plan - Assessment and Plan (Free Text) Assessment: Hypercapnemia 2/2 COPD exacerbation; Hx of lung CA s/p radiation therapy Initial ABG showing CO2 retention; patient admitted to ICU 06/25/18 and transferred out of 06/26/18. - On BiPAP - Chest CT (06/25/18): Highly suspicious findings in both lungs and right hilar for tumor. Basilar atelectasis/infiltrates. Underlying emphysematous changes and bronchitic findings. Enlarged right adrenal gland. - Medications: * Zosyn 2.25gm Q8H, renal dose * Predinisone taper * Duonebs Q4H * Budesonide 0.5mg Q12H Oxygen desaturation - resolved 2/2 COPD exacerbation; Hx of lung CA s/p radiation therapy ICU consult Currently, on BiPAP ABG improving: CO2:69; O2 84; HCO3 31.4; pH 7.33 New Onset Afib Cardiology Consult: Dr. Bravo - Labetalol 300mg PO BID - Lovenox 60mg q12h - discussed with Dr. Bravo - patient is fall risk, therefore risks outweigh the benefits and anticoagulation is not recommended for patient to be discharged home with. Patient will continue Aspirin 81mg daily Essential tremor - Neurology Consult: Dr. Castro --> help appreciated - Patient currently takes Ropinirole 4mg po daily - per son the patient has not been taking it for 6 days. Son was concerned as patient was trembling. Spoke with Dr. Castro who stated to start Topomax 50mg HS - Mirapex 1mg PO HS Gout - Allopurinol 100mg PO daily Diabetes mellitus HgbA1C (06/25/18): 6.6 Accuchecks ISS- Low dose Diabetic neuropathy - Gabapentin 100mg PO bid Hypertension - Labetalol 300mg PO BID - Hydralazine 50mg PO daily - Isosorbid 120mg po daily BPH (benign prostatic hyperplasia) - Flomax 0.4mg PO daily - Finasteride 5mg PO daily Constipation Sennokot S 50Mg-8.6Mg 2 tab PO BID Colace 100mg PO BID Prophylactic measure - GI: Protonix 40mg PO daily - Heparin 5000 units SC Q12H Patient does not want to go to a rehab facility. Patient is being discharged home. Patient to receive home physical therapy. Patient to use rolling walker to ambulate. Please continue new medications: Prednisone 10mg one tablet daily for 3 days Patient to continue home medications: Aspirin 81mg one tablet daily Topamax 50mg one tablet at night Flomax 0.8mg one tablet daily Crestor 10mg one tablet at night Primidone 250mg one tablet twice a day Pantoprazole 40mg one tablet daily Magnesium 400mg one tablet twice a day Labetalol 300mg one tablet twice a day Hydralazine 50mg one tablet daily Gabapentin 100mg one tablet twice a day Lasix 20mg one tablet daily Folic acid 1mg one tablet daily Proscar 5mg one tablet daily Colace 100mg one tablet twice a day Cilostazol 50mg one tablet twice a day Carbamazepine 200mg one tablet daily Allopurinol 100mg one tablet daily Folic acid 0.4mg one tablet daily Ferrous Sulfate 325mg one tablet daily Metformin 500mg one tablet twice a day Isosorbide monitrate 120mg one tablet daily pulmicort Amelie Please follow up with your primary care physician. Please follow up with side splitter, Dr. Bravo Case discussed with Dr. Samuel Arevalo PGY-2
[2018-07-06 07:58] VITALS: BP 139/68; RESP 18; TEMP 98.1; O2SAT 94
[2018-07-06 09:18] VITALS: PULSE 80
[2018-07-06] MEDS: Pantoprazole 40 mg EC Tab PO SCH (11:31)
[2018-07-06] MEDS: Magnesium Oxide 400 mg Tab UD PO SCH (11:32)
[2018-07-06] MEDS: Enoxaparin 60 mg Syringe SC SCH (11:34)
[2018-07-06] MEDS: Docusate-Senna 50 mg-8.6 mg Tab PO SCH (11:35)
[2018-07-06] MEDS: Labetalol Hydrochloride 300 mg Tab PO SCH (11:36)
[2018-07-06] MEDS: Cilostazol 50 mg Tab UD PO SCH (11:37)
[2018-07-06 11:42] LABS: BASO % 0.5 % (0.0-2.0); EOS # 0.2 K/uL (0.0-0.7); EOS % 2.7 % (0.0-4.0); HEMOGLOBIN 12.6 g/dL (12.0-18.0); LYMPH # 0.8 K/uL (1.0-4.3); LYMPH % 10.3 % (20.0-40.0); MEAN CELL VOLUME 103.3 fL (80.0-94.0); MEAN CORPUSCULAR HEMOGLOBIN 34.5 pg (27.0-31.0); MEAN CORPUSCULAR HGB CONC 33.5 g/dL (33.0-37.0); MONO # 0.4 K/uL (0.0-0.8); MONO % 4.6 % (0.0-10.0); NEUT # 6.3 K/uL (1.8-7.0); NEUT % 81.9 % (50.0-75.0); NRBC % 0.2 % (0.0-2.0); RBC 3.65 Mil/uL (4.40-5.90); RED CELL DISTRIBUTION WIDTH 14.5 % (11.5-14.5); WHITE BLOOD COUNT 7.7 K/uL (4.8-10.8)
[2018-07-06 12:00] LABS: ALB/GLOB RATIO 1.3 (1.0-2.1); ALBUMIN 3.3 g/dL (3.5-5.0); ALT/SGPT 23 U/L (21-72); AST/SGOT 40 U/L (17-59); BLOOD UREA NITROGEN 22 mg/dL (9-20); CALCIUM 8.4 mg/dl (8.6-10.4); GFR NON-AFRICAN AMERICAN > 60
--- NOTE | 2018-07-07 15:48 | CARD ---
APPROVED REPORT Date of service: 06/27/2018 EKG Measurement Heart [id number] <Conclusion> Sinus tachycardia with occasional premature ventricular complexes Left axis deviation Right bundle branch block Left ventricular hypertrophy Abnormal ECG
--- NOTE | 2018-07-08 12:15 | DS ---
HOSPITAL COURSE: The patient was admitted to the hospital with chief complaint of history of shortness of breath, wheezing, coughing, fatigue. The patient has COPD, history of lung cancer, status post lobectomy. The patient started on IV steroids, bronchodilators, ICU. The patient showed very slow gradual improvement, transferred to rehab, transferred to the floor. The patient showed very slow improvement. Discharged to follow as outpatient. DIAGNOSES: Severe chronic obstructive pulmonary disease exacerbation, lung cancer. Parul Baker MD
== END 2018-07-06 15:30 | disposition home or self-care (01) | DRG 189 ==
LOC: C.ER 13:49 → C.9E 15:41 → C.6T 18:02 → OBSVTOIN 06-25 16:51 → C.9I 06-25 17:30 → C.3T 06-28 02:24 → C.5S 07-03 19:12
PROVIDERS: ADMIT Internal Medicine Pulmonary Disease; ATTEND Internal Medicine Pulmonary Disease
PROC: 5A09557 Assistance with Respiratory Ventilation, Greater than 96 Consecutive Hours, Continuous Positive Airway Pressure (ICD-10-PCS; principal; 2018-06-25)
DX: J96.02 Acute respiratory failure with hypercapnia (principal); E11.10 Type 2 diabetes mellitus with ketoacidosis without coma; J18.9 Pneumonia, unspecified organism; J44.1 Chronic obstructive pulmonary disease with (acute) exacerbation; E87.2 Acidosis; I13.0 Hypertensive heart and chronic kidney disease with heart failure and stage 1 through stage 4 chronic kidney disease, or unspecified chronic kidney disease; J98.11 Atelectasis; J44.0 Chronic obstructive pulmonary disease with (acute) lower respiratory infection; E11.22 Type 2 diabetes mellitus with diabetic chronic kidney disease; E78.5 Hyperlipidemia, unspecified; G25.0 Essential tremor; I25.10 Atherosclerotic heart disease of native coronary artery without angina pectoris; I50.9 Heart failure, unspecified; M10.9 Gout, unspecified; N18.1 Chronic kidney disease, stage 1; N40.0 Benign prostatic hyperplasia without lower urinary tract symptoms; Z51.5 Encounter for palliative care; Z66 Do not resuscitate; Z85.118 Personal history of other malignant neoplasm of bronchus and lung; Z87.891 Personal history of nicotine dependence; Z99.81 Dependence on supplemental oxygen; E11.40 Type 2 diabetes mellitus with diabetic neuropathy, unspecified; Z79.4 Long term (current) use of insulin